=== PATIENT | female | born 1940 | race Caucasian/White ===

== ENCOUNTER 2019-08-19 16:24 | Inpatient (IN) | payer MEDICARE, MEDICAID ==
[~2019-08-19] VITALS: Ht 66 cm; Wt 249.0 kg
--- NOTE | 2019-08-19 20:20 | NUR ---
cayla german admitted to room 227-1, with an admitting diagnosis of chf et weakness, on 08/19/19 from [facility] via , accompanied by .CAYLA DIAZ introduced to surroundings, call light, bed controls, phone, TV, temperature control, lights, meal times, smoking policy, visitor policy, side rail policy, bathrooms and showers. Patient Rights given to patient in the handbook.CAYLA DIAZ verbalizes understanding that [facility] is not responsible for the loss or damage to any personal effects or valuables that are kept in the patients posession during their hospitalization. The following Patient Care Plans were discussed with the : Discharge Planning, ,, and . CAYLA DIAZ verbalizes understanding of Interdisciplinary Patient Education. Patient was informed about the Rapid Response Team and its purpose. Patient received Patient Rights Booklet, which includes Privacy Act Statement and Data Collection Information Summary.
[2019-08-19 20:30] VITALS: BP 110/72
[2019-08-19 21:00] VITALS: BP 110/72
[2019-08-19 21:38] VITALS: BP 110/72
[2019-08-19] MEDS ORDERED: ONDANSETRON 4 MG (ZOFRAN) ORAL DISSOLVE TAB PO PRN (22:00)
[2019-08-19] MEDS ORDERED: CALCIUM CARBONATE 500 MG (TUMS) TAB.CHEW PO PRN (22:00)
[2019-08-19] MEDS ORDERED: LOPERAMIDE 2 MG (IMODIUM) TABLET PO PRN (22:00)
[2019-08-19] MEDS ORDERED: guaiFENesin/CODEINE (ROBITUSSIN AC) 10ML UDC PO PRN (22:00)
[2019-08-19] MEDS ORDERED: HYDROcodone/APAP 5 MG/325 MG (LORTAB) TAB PO PRN (22:00)
[2019-08-19] MEDS ORDERED: ACETAMINOPHEN 500 MG TAB (TYLENOL) PO PRN (22:00)
[2019-08-20 06:00] VITALS: BP 109/72
[2019-08-20] MEDS ORDERED: SPIR25TA5 PO (06:40)
[2019-08-20] MEDS ORDERED: LOSA25TA2 PO (06:54)
[2019-08-20] MEDS ORDERED: NITR0.4T42 SL (06:54)
[2019-08-20] MEDS ORDERED: INSU100V5 SQ (06:54)
[2019-08-20] MEDS ORDERED: CYCL10TA9 PO (06:54)
[2019-08-20] MEDS ORDERED: GLIM4TAB PO (06:54)
[2019-08-20] MEDS ORDERED: ASPI-586 PO (06:54)
[2019-08-20] MEDS ORDERED: INSU100V39 SQ (06:54)
[2019-08-20] MEDS ORDERED: RT-ALBUINH INH ×2 (06:54→07:12)
[2019-08-20] MEDS ORDERED: BUME2TAB7 PO (06:54)
[2019-08-20] MEDS ORDERED: DIPH25CA79 PO (07:12)
[2019-08-20] MEDS ORDERED: LOVA40TA2 PO (07:12)
[2019-08-20] MEDS ORDERED: ALPR0.5T PO (07:12)
[2019-08-20] MEDS ORDERED: POTA10TA PO (07:12)
[2019-08-20] MEDS ORDERED: GUAI1CAP52 PO (07:12)
[2019-08-20] MEDS ORDERED: MAGN200T8 PO (07:12)
[2019-08-20] MEDS ORDERED: NITR-68 PO (08:02)
--- NOTE | 2019-08-20 08:20 | Physical Therapy Evaluation ---
PT Evaluation-General Medical Diagnosis Admission Date Aug 19, 2019 at 20:15 Medical Diagnosis: CHF myopathy Onset Date: Aug 19, 2019 Therapy Diagnosis Therapy Diagnosis: debility/weakness Precautions Precautions/Isolations: Standard Precautions Referral Physician: Chani Reason for Referral: Evaluation/Treatment Medical History Pertinent Medical History: COPD, CVA, DM, Heart Failure, HTN, Renal Insufficiency Additional Medical History MS Current History Transfer from [facility] Reviewed History: Yes Social History Home: Apartment Current Living Status: Alone Entry Into Home: Level Entry Prior/Core FIM Prior Level of Function Therapy Code Descriptions/Definitions Functional [place] Measure: 0=Not Assessed/NA 4=Minimal Assistance 1=Total Assistance 5=Supervision or Setup 2=Maximal Assistance 6=Modified [place] 3=Moderate Assistance 7=Complete [place] Therapy Quality Codes: 6 Independent with activity with or without an assistive device 5 Patient requires set up or clean up by helper. Patient completes activity by themselves 4 Supervision or touching assist (CGA). [place] provide cues , steadying assist 3 The helper provides less than half the effort to complete the activity 2 The helper provides more than half the effort to complete the activity 1 Dependent. The helper does all the effort to complete an activity 7 Patient refused to complete or attempt activity 9 The patient did not perform the activity before the current illness or injury 88 Not attempted due to Medical conditions or safety concerns Functional Abilities and Goals: Independent: Patient completed the activities by him/herself, with or without an assistive device, with no assistance from a helper. Needed Some Help: Patient needed partial assistance from another person to complete activities. Dependent: A helper completed the activities for the patient. Unknown: Not Applicable: Bed Mobility: 6 Transfers (B,C,W/C) (FIM): 6 Gait: 6 Stairs: 1 Indoor Mobility (Ambulation): Independent Stairs: Needed Some Help Prior Devices Use: Manual wheelchair, Walker PT Evaluation-Current Subjective Patient agrees to PT. Alert and Oriented x 3. Pain Numeric Pain Scale: 0-No Pain Location: No Pain Reported Objective Patient Orientation: Normal For Age Problem Solving: Fair Attachments: Oxygen (3L continuous) ROM/Strength ROM Lower Extremities bilateral LE WFL Strenght Lower Extremities 4-/5 grossly bilateral LE all planes Integumentary/Posture Integumentary refer to nursing notes Bowel Incontinence: No Bladder Incontinence: No Posture slightly kyphotic Neuromuscular (Tone, Coordination, Reflexes) grossly intact Sensory Vision: Functional Hearing: Functional Sensation Right Lower Extremit: Impaired Sensation Left Lower Extremity: Impaired Transfers Therapy Code Descriptions/Definitions Functional [place] Measure: 0=Not Assessed/NA 4=Minimal Assistance 1=Total Assistance 5=Supervision or Setup 2=Maximal Assistance 6=Modified [place] 3=Moderate Assistance 7=Complete [place] Therapy Quality Codes: 6 Independent with activity with or without an assistive device 5 Patient requires set up or clean up by helper. Patient completes activity by themselves 4 Supervision or touching assist (CGA). [place] provide cues , steadying assist 3 The helper provides less than half the effort to complete the activity 2 The helper provides more than half the effort to complete the activity 1 Dependent. The helper does all the effort to complete an activity 7 Patient refused to complete or attempt activity 9 The patient did not perform the activity before the current illness or injury 88 Not attempted due to Medical conditions or safety concerns Transfers (B, C, W/C) (FIM): 5 Scootin Rollin Roll Left to Right (QC): 5 Supine to/from Sit: 5 Sit to/from Stand: 5 bed t/f WC(FIM only if WC use): 5 Sit to Lying (QC): 5 Lying to Sitting/Side of Bed(Q: 5 Sit to Stand (QC): 5 Chair/Udo-hi-Eprqo Xfer(QC): 5 Car Transfer (QC): 5 Gait Does the Patient Walk?: Yes Mode of Locomotion: Both Anticipated Mode of Locomotion: Both Gait (FIM): 5 Distance (FIM): 3=150 ft Walk 10 feet (QC): 5 Walk 50 ft with 2 Turns(QC): 5 Walk 150 ft (QC): 5 Walking 10ft/uneven surface-QC: 5 Distance: 150' x 3 Gait Level of Assist: 5 Gait Assistive Device: FWW Comments/Gait Description slow, steady, reciprocal pattern Stairs Stairs (FIM): 2 #of Steps: 2 Level of Assist: 4 1 Step (curb) (QC): 4 4 Steps (QC): 88 Assistive Device: Walker 12 Steps (QC): 9 Balance Sitting Static: Normal Sitting Dynamic: Normal Standing Static: Normal Standing Dynamic: Normal Treatment bilateral LE exercises in sit and stand 12 reps each AP, LAQ, hip flexion, abd/add, marching, hip flexion/extension abd/add in stand (2 sets) patient requires recovery periods due to fatigue/NuStep 15 min WL 5 to improve f unctional strength and mobility, as well as, pulmonary function to return to home safely Assessment/Needs 79 y.o. female, will benefit from skilled PT to address functional strength and mobility to improve current LOF to safely return to home with home health intervention, safely. Patient requires O2 continuous and did prior to this admit. Rehab Potential: Fair PT Tubing Mill Setter Goals Skilled Nursing Goals PT Skilled Nursing Goals Time Frame: Sep 10, 2019 Transfers (B,C,W/C) (FIM): 6 Sit to Lying (QC): 6 Lying-Sitting on Side/Bed(QC): 6 Sit to Stand (QC): 6 Rollin Roll Left to Right (QC): 6 Chair/Qjs-fr-Hnzex Xfer(QC): 6 Car Transfer (QC): 6 Does the Patient Walk: Yes Gait (FIM): 6 Gait distance (FIM): 3=150 ft Distance: 150' Walk 10 feet (QC): 6 Walk 10ft-Uneven Surface(QC): 6 Walk 50ft with 2 Turns (QC): 6 Walk 150 ft (QC): 6 Gait Level of Assist: 6 Gait Assistive Device: FWW Stairs (FIM): 2 # of Steps: 4 1 Step (curb) (QC): 5 4 Steps (QC): 5 12 Steps (QC): 9 Stairs Level Of Assist: 5 Picking up an Object (QC): 5 PT Plan Problem List Problem List: Activity Tolerance, Functional Strength, Safety, Balance, Gait, Transfer, Bed Mobility Treatment/Plan Treatment Plan: Continue Plan of Care Treatment Plan: Bed Mobility, Concurrent Therapy, Education, Functional Activity Mary, Functional Strength, Group Therapy, Gait, Safety, Therapeutic Exercise, Transfers Treatment Duration: Sep 10, 2019 Frequency: At least 5 of 7 days/Wk (IRF) Estimated Hrs Per Day: 1.5 hours per day Patient and/or Family Agrees t: Yes Safety Risks/Education Patient Education: Safety Issues Teaching Recipient: Patient Teaching Methods: Discussion Response to Teaching: Verbalize Understanding Discharge Recommendations Therapy Discharge Recommendati: Post Acute PT (home health) Time/GCodes Time In: 650 Time Out: 820 Total Billed Treatment Time: 90 Total Billed Treatment 1 visit EVMod C 30 min FA x 2 30 min EX x 2 30 min FEDERICO HANKINS PT Aug 20, 2019 08:20
[2019-08-20] MEDS: DOCUSATE SODIUM 100 MG (COLACE) CAP PO PRN (08:51)
[2019-08-20] MEDS: SENNA W/DOCUSATE (SENOKOT S) TABLET PO SCH ×2 (08:51→20:56)
--- NOTE | 2019-08-20 08:56 | NUR ---
Pt only took 1 Senna, states, that she "didn't want her stomach to rumble." Pt reports to OT that her M/S causes her to have back pain.
--- NOTE | 2019-08-20 09:05 | PM&R H&P / Post Admit Assess ---
History of Present Illness HPI/Chief Complaint Chief complaint: Myopathy with debility History of present illness: This is a 79-year-old white female clinic patient of Kalee Harvey in [facility] who has a past medical history of diabetes mellitus and hypertension with valvular heart disease who presents following a 10 day hospital stay at [facility] when she was admitted there for congestive heart failure found to have ejection fraction of 25 percent. She was having shortness of breath and continued to have shortness of breath since that time and further evaluation showed severe aortic stenosis. She was treated for congestive heart failure in preparation for a TVAR in the future but managing her volume status was difficulty so a valvuloplasty was required and significantly improved her status she began breathing better and the pulmonary edema on chest x-ray was much improved. Her creatinine remained normal at 1.0. She did have mild anemia and that was monitor closely along with glucose monitoring. Dr. Luiz Pastor is her primary purchasing manager. She will see cardiovascular surgeon Dr. Buckner and 32 days to arrange for scheduling the TVAR. Currently patient is very upset that she has not received her alprazolam benzodiazepine for her anxiety she does not appear to be terribly anxious but will try to reassure her with a warm blanket while her home medications are being put in the computer in order to restart. Appreciate Dr. Bansal in consultation also. Source: patient, old records Exam Limitations: no limitations Date Seen 08/20/19 Time Seen by a Provider: 09:30 Attending Physician Mariela Tucker DO PCP Referring Physician Date of Admission Aug 19, 2019 at 20:15 Home Medications & Allergies Home Medications Reviewed patient Home Medication Reconciliation performed by pharmacy medication reconciliations natural gas technician and/or nursing. Patients Allergies have been reviewed. Allergies Allergies Coded Allergies Beta-Blockers (Beta-Adrenergic Bloc (Verified Allergy, Unknown, 08/20/19) Thiazides (Verified Allergy, Unknown, 08/20/19) thiazide -type diuretics acebutolol (Verified Allergy, Unknown, 08/20/19) amitriptyline (Verified Allergy, Unknown, 08/20/19) from elavil amoxicillin (Verified Allergy, Unknown, 08/20/19) aspirin (Verified Allergy, Unknown, 08/20/19) from talwin compound atenolol (Verified Allergy, Unknown, 08/20/19) atropine (Verified Allergy, Unknown, 08/20/19) from lomotil azithromycin (Verified Allergy, Unknown, 08/20/19) captopril (Verified Allergy, Unknown, 08/20/19) from capozide cephalexin (Verified Allergy, Unknown, 08/20/19) from keflex clavulanic acid (Verified Allergy, Unknown, 08/20/19) from augmentin codeine (Verified Allergy, Unknown, 08/20/19) diphenoxylate (Verified Allergy, Unknown, 08/20/19) from lomotil doxepin (Verified Allergy, Unknown, 08/20/19) doxycycline (Verified Allergy, Unknown, 08/20/19) enalapril (Verified Allergy, Unknown, 08/20/19) glipizide (Verified Allergy, Unknown, 08/20/19) hydralazine (Verified Allergy, Unknown, 08/20/19) from apresazide hydrochlorothiazide (Verified Allergy, Unknown, 08/20/19) from apresazide levofloxacin (Verified Allergy, Unknown, 08/20/19) from levaquin meperidine (Verified Allergy, Unknown, 08/20/19) metoprolol (Verified Allergy, Unknown, 08/20/19) metronidazole (Verified Allergy, Unknown, 08/20/19) from flagyl naproxen (Verified Allergy, Unknown, 08/20/19) penicillin V (Verified Allergy, Unknown, 08/20/19) from penicillin vk pentazocine (Verified Allergy, Unknown, 08/20/19) from talwin compound perphenazine (Verified Allergy, Unknown, 08/20/19) from etrafon prednisone (Verified Allergy, Unknown, 08/20/19) propranolol (Verified Allergy, Unknown, 08/20/19) sulfadiazine (Verified Allergy, Unknown, 08/20/19) verapamil (Verified Allergy, Unknown, 08/20/19) Past Acibzqk-Wxpzvf-Xqiloq Hx Past Med/Social Hx: Reviewed Nursing Past Med/Soc Hx, Reviewed and Corrections made Patient Social History Marrital Status: single 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) Alcohol Use: Denies Use Recreational Drug Use: No Smoking Status: Former Smoker Former Smoker, Quit: Aug 19, 1982 Type Used: Cigarettes Physical Abuse Screen: No Sexual Abuse: No Recent Foreign Travel: No Contact w/other who traveled: No Recent Hopitalizations: Yes Recent Infectious Disease Expo: No Immunizations Up To Date Date of Pneumonia Vaccine: Aug 19, 2017 Seasonal Allergies Seasonal Allergies: Yes Past Medical History Respiratory: Sleep Apnea Currently Using CPAP: Yes Currently Using BIPAP: No Cardiac: Angina, Chronic Edema/Swelling, Coronary Artery Disease, High Cholesterol, Hypertension, Valvular Heart Disease : No Genitourinary: Renal Failure Gastrointestinal: Abdominal Hernia, Gastroesophageal Reflux, Irritable Bowel Musculoskeletal: Arthritis, Rheumatoid Arthritis, Gout Are Your Blood Sugars Over 250: No HEENT: Cataract Loss of Vision: Denies Hearing Impairment: Denies Psychosocial: Anxiety History of Blood Disorders: No Adverse Reaction to Blood Flowers: No Family History Arthritis 19 MOTHER G8 SISTER Asthma G8 SISTER Osteoporosis 19 MOTHER Severe allergy 19 FATHER 19 MOTHER G8 SISTER Review of Systems Constitutional: see HPI, dizziness, malaise, weakness EENTM: no symptoms reported Respiratory: dyspnea on exertion Cardiovascular: no symptoms reported Gastrointestinal: constipation Genitourinary: no symptoms reported Musculoskeletal: back pain, joint pain Skin: no symptoms reported Psychiatric/Neurological: Anxiety All Other Systems Reviewed Negative Unless Noted: Yes Physical Exam Exam Vital Signs Vital Signs Date Time Temp Pulse Resp B/P (MAP) Pulse Ox O2 Delivery O2 Flow Rate FiO2 08/20/19 09:06 78 22 106/60 (75) 98 Nasal Cannula 2.00 08/20/19 06:00 36.0 Capillary Refill : General Appearance: No Apparent Distress, WD/WN, Chronically ill HEENT: PERRL/EOMI, Normal ENT Inspection, Pharynx Normal, Moist Mucous Membranes Neck: Full Range of Motion, Normal Inspection, Non Tender, Supple Respiratory: Chest Non Tender, Lungs Clear, Normal Breath Sounds, No Accessory Muscle Use, No Respiratory Distress, Decreased Breath Sounds Cardiovascular: No Edema, No Gallop, No JVD, Bradycardia, Systolic Murmur, Irregularly Irregular Gastrointestinal: Normal Bowel Sounds, No Organomegaly, No Pulsatile Mass, Non Tender, Soft Back: Normal Inspection, No CVA Tenderness, No Vertebral Tenderness Extremity: Normal Capillary Refill, Normal Inspection, Normal Range of Motion, Non Tender, No Calf Tenderness, Pedal Edema Neurologic/Psychiatric: Alert, Oriented x3, No Motor/Sensory Deficits, Normal Mood/Affect, information systems audit manager II-XII Norm as Tested, Motor Weakness (generalized in arms and legs upper and lower) Skin: Normal Color, Warm/Dry Lymphatic: No Adenopathy Results Results/Procedures Labs Laboratory Tests 08/20/19 09:44 Patient resulted labs reviewed. Assessment/Plan Assessment and Plan Assess & Plan/Chief Complaint Assessment: Myopathy Debility Congestive heart failure 25 percent ejection fraction line severe aortic stenosis status post valvuloplasty temporarily in preparation for TVAR at [facility] Diabetes mellitus Osteoarthritis Anxiety Sleep apnea Depression Plan: Continue home meds anxiolytics Pain medication Appreciate Dr. Bansal Check labs including BNP (1) Myopathy Status: Acute (2) Congestive heart failure Status: Acute Qualifiers: Heart failure type: systolic Heart failure chronicity: acute on chronic Qualified Codes: I50.23 - Acute on chronic systolic (congestive) heart failure (3) Diabetes mellitus Status: Chronic Qualifiers: Diabetes mellitus type: type 2 Diabetes mellitus termite treater insulin use: without halfway use Diabetes mellitus complication status: with other specified complication Qualified Codes: E11.69 - Type 2 diabetes mellitus with other specified complication (4) Morbid obesity Status: Chronic (5) Anemia Status: Chronic Qualifiers: Anemia type: unspecified type Qualified Codes: D64.9 - Anemia, unspecified (6) Anxiety Status: Chronic (7) Aortic stenosis Status: Chronic Qualifiers: Cardiac valve disease etiology: etiology unspecified Qualified Codes: I35.0 - Nonrheumatic aortic (valve) stenosis (8) CAD (coronary artery disease) Status: Chronic Qualifiers: Coronary Disease-Associated Artery/Lesion type: [place] artery [place] vs. transplanted heart: [place] heart Associated angina: without angina Qualified Codes: I25.10 - Atherosclerotic heart disease of [place] coronary artery without angina pectoris (9) Depression Status: Chronic Qualifiers: Depression Type: unspecified Qualified Codes: F32.9 - Major depressive disorder, single episode, unspecified (10) Sleep apnea Status: Chronic Qualifiers: Sleep apnea type: unspecified type Qualified Codes: G47.30 - Sleep apnea, unspecified (11) Elevated brain natriuretic peptide (BNP) level Status: Chronic Post Admission Physician Asses Date seen by provider: Aug 20, 2019 Time seen by provider: 09:30 Admisison Dx: (1) Myopathy Status: Acute (2) Congestive heart failure Status: Acute (3) CAD (coronary artery disease) Status: Chronic (4) Diabetes mellitus Status: Chronic (5) Morbid obesity Status: Chronic (6) Sleep apnea Status: Chronic (7) Anemia Status: Chronic (8) Elevated brain natriuretic peptide (BNP) level Status: Chronic (9) Aortic stenosis Status: Chronic (10) Anxiety Status: Chronic (11) Depression Status: Chronic The preadmission screen agrees with the post admission assessment that the patient is a good candidate for inpatient rehabilitation. The patient will have a comprehensive program of inpatient rehabilitation with a goal of maximizing level of functional independence prior to discharge home with family. The patient will have PT/OT ninety minutes per day, each discipline, five days a week for gait, strengthening, conditioning, balance, ADLs, any patient/family/caregiver training as necessary. Speech therapy to do cognitive assessment and treat as indicated. Rehabilitation nursing to assist with bowel, bladder, skin, wound care, medication administration, pain management. Audiovisual Aids Technician to assist with discharge planning, community reentry. SCD's for DVT prophylaxis. She appears to be well motivated to participate in three hours of therapy a day. She should be able to tolerate three hours of therapy a day from a medical [facility]. She should benefit from the three hours of therapy a day. She has a reasonable discharge plan, reasonable discharge rehabilitation goals and a supportive family. She has various comorbidities that need to be closely monitored with medications and treatments adjusted on a daily basis as needed. These include: see list Barriers to discharge for this patient who had been independent prior to this are for her to be modified independent to supervision for ADLs and mobility skills prior to discharge home with family, so as to lessen the burden of the caregivers. Risks for this patient include: 1. Fall 2. Fracture 3. DVT 4. Pulmonary embolism 5. Wound infection 6. Skin breakdown 7. Contractures 8. Poorly controlled pain 9. Urinary retention 10. UTI 11. Respiratory infection 12. Aspiration Estimated Length of Stay: 5 days Prognosis: Rehab prognosis appears good for goal of discharge home with family modified independent to supervision for ADLs and mobility skills. MARIELA TUCKER DO Aug 20, 2019 09:05
[2019-08-20 09:06] VITALS: BP 106/60
--- NOTE | 2019-08-20 09:15 | Occupational Therapy Eval ---
OT Evaluation-General/PLF Medical Diagnosis Admission Date Aug 19, 2019 at 20:15 Medical Diagnosis: CHF myopathy Onset Date: Aug 19, 2019 Therapy Diagnosis Therapy Diagnosis: decr self care, decr funct mobility, decr act hector, weakness Precautions Precautions/Isolations: Standard Precautions Safety Interventions: Bed Exit Alarm Referral Physician: Chani Referral Reason: Evaluation/Treatment Medical History Pertinent Medical History: Arthritis, COPD, CVA (39 years ago), DM, GERD, Heart Failure, HTN, Renal Insufficiency, Rheumatoid Arthritis Additional Medical History Multiple sclerosis, anxiety, gout. Uses CPAP. On continuous O2 at 3L/min at home. Pt reported urinary incontinence and chronic constipation Current History Admitted from [facility] after hospitalization Reviewed History: Yes Social History Home: Apartment Current Living Status: Alone Entry Into Home: Level Entry ADL-Prior Level of Function Therapy Code Descriptions/Definitions Functional [place] Measure: 0=Not Assessed/NA 4=Minimal Assistance 1=Total Assistance 5=Supervision or Setup 2=Maximal Assistance 6=Modified [place] 3=Moderate Assistance 7=Complete [place] Therapy Quality Codes: 6 Independent with activity with or without an assistive device 5 Patient requires set up or clean up by helper. Patient completes activity by themselves 4 Supervision or touching assist (CGA). [place] provide cues , steadying assist 3 The helper provides less than half the effort to complete the activity 2 The helper provides more than half the effort to complete the activity 1 Dependent. The helper does all the effort to complete an activity 7 Patient refused to complete or attempt activity 9 The patient did not perform the activity before the current illness or injury 88 Not attempted due to Medical conditions or safety concerns Functional Abilities and Goals: Independent: Patient completed the activities by him/herself, with or without an assistive device, with no assistance from a helper. Needed Some Help: Patient needed partial assistance from another person to complete activities. Dependent: A helper completed the activities for the patient. Unknown: Not Applicable: ADL PLOF Comments Pt reported that she has 32.5 hours of home care assistance, doing such things as help her with her bath, clean, cook, do laundry. She said that, prior to , she could dress herself. She can toilet, complete grooming, feed herself without help. She has a wheelchair at home and also walks a little with FWW. 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 Self Care: Needed Some Help Functional Cognition: Independent DME/Equipment: Shower, Toilet/Riser OT Current Status Subjective Pt seen in room, up in w/c, agreeable to OT. Pain reported 5/10 in her tailbone but she doesn't take pain meds, stating she is allergic to them. Appearance Alert, cooperative, a little anxious Mental Status/Objective Patient Orientation: Person, Place, Time Attachments: Oxygen (3L/min) Current Glasses/Contacts: Yes Hearing Aids: No Dentures/Partials: Yes (upper and lower) Hand Dominance: Right Upper Extremity ROM Grossly WFL bilat Upper Extremity Strength Grossly 4/5 bilat. Slightly weaker on L side. ADL-Treatment ADL-Current Pt walked 150' with FWW with SBA, with PT. ADLs to follow Education OT Patient Education: Purpose of tx/functional activities, Rehab process Teaching Recipient: Patient Teaching Methods: Discussion Response to Teaching: Verbalize Understanding, Reinforcement Needed OT Short Term Goals Short Term Goals Time Frame: Aug 27, 2019 Grooming(FIM): 5 Toileting(FIM): 4 Toilet/Commode Transfer(FIM): 5 Additional Short Term Goals: 1-Demonstrate ADL Tasks, 2-Verbalize Understanding, 3-ImproveStrength/Mary 1=Demonstrate adherence to instructed precautions during ADL tasks. 2=Patient will verbalize/demonstrate understanding of assistive devices/modifications for ADL. 3=Patient will improve strength/tolerance for activity to enable patient to perform ADL's. OT Facilities Maintenance Worker Goals [facility] Goals Time Frame: Sep 03, 2019 Eating (FIM): 6 Eating (QC): 6 Groomin Oral Hygiene (QC): 6 Bathing(FIM): 5 Shower/Bathe Self (QC): 5 Upper Body Dressing(FIM): 6 Upper Body Dressing (QC): 6 Lower Body Dressing(FIM): 6 Lower Body Dressing (QC): 6 On/Off Footwear (QC): 6 Toileting(FIM): 6 Toileting Hygiene (QC): 6 Toilet/Commode Transfer(FIM): 6 Toilet/Commode Transfer (QC): 6 Shower Transfer(FIM): 6 Additional Goals: 1-Demonstrate ADL Tasks, 2-Verbalize Understanding, 3- ImproveStrength/Mary 1=Demonstrate adherence to instructed precautions during ADL tasks. 2=Patient will verbalize/demonstrate understanding of assistive devices/modifications for ADL. 3=Patient will improve strength/tolerance for activity to enable patient to perform ADL's. OT Education/Plan Problem List/Assessment Assessment: Decreased Activ Tolerance, Decreased UE Strength, Dependent Transfers, Impaired Bed Mobility (per pt report), Impaired Self-Care Skills Pt would benefit from skilled OT to increase her independence in basic self care to allow her to safely return home to live alone after hospitalization. Discharge Recommendations Plan/Recommendations: Continue POC Treatment Plan/Plan of Care Treatment,Training & Education: Yes Patient would benefit from OT for education, treatment and training to promote independence in ADL's, mobility, safety and/or upper extremity function for ADL's. Plan of Care: ADL Retraining, Functional Mobility, Group Exercise/Act as Ind (education, exercise, socialization, funct mobility, activity tolerance), UE Funct Exercise/Act, UE Neuromus Re-Ed/Coord, W/C Management Training, OTHER (energy conservation education) Treatment Duration: Sep 03, 2019 Frequency: At least 5 of 7 days/Wk (IRF) Agreement: Yes Rehab Potential: Good Time/GCodes Start Time: 08:30 Stop Time: 09:05 Total Time Billed (hr/min): 35 Billed Treatment Time visit, 35 minutes evaluation moderate intensity WILMER TREADWELL OT Aug 20, 2019 09:15
[2019-08-20 10:07] LABS: BASOPHILS # (AUTO) 0.1 10^3/uL (0.0-0.1); BASOPHILS % (AUTO) 1 % (0-10); EOSINOPHILS # (AUTO) 0.4 10^3/uL (0.0-0.3); EOSINOPHILS % (AUTO) 4 % (0-10); HEMATOCRIT 40 % (35-52); HEMOGLOBIN 12.6 G/DL (11.5-16.0); LYMPHOCYTES # (AUTO) 1.3 X 10^3 (1.0-4.0); LYMPHOCYTES % (AUTO) 13 % (12-44); MEAN CORPUSCULAR HEMOGLOBIN 26 PG (25-34); MEAN CORPUSCULAR HGB CONC 32 G/DL (32-36); MEAN CORPUSCULAR VOLUME 83 FL (80-99); MEAN PLATELET VOLUME 10.2 FL (7.4-10.4); MONOCYTES # (AUTO) 1.3 X 10^3 (0.0-1.0); MONOCYTES % (AUTO) 13 % (0-12); NEUTROPHILS % (AUTO) 69 % (42-75); PLATELET COUNT 374 10^3/uL (130-400); RED CELL DISTRIBUTION WIDTH 14.7 % (10.0-14.5)
--- NOTE | 2019-08-20 10:08 | Consultation-Cardiology ---
HPI-Cardiology Cardiology Consultation Date of Consultation 08/20/19 Date of Admission Time Seen by Provider: 10:03 Indication: CHF HPI 79 years old lady with history of CHF, Aortic stenosis, and balloon valvulopasty done last week in [facility] by Dr. Pastor. She was referred for continuing medical therapy. It was reported that she has history of severe congestive heart failure secondary to valvular heart disease, coronary artery disease, diabetes and hyperlipidemia. Was having shortness of breath and generalized weakness, on my evaluation she was fairly anxious, asking for food and her medication. Did not have any active pain. Home Medications & Allergies Allergies: Coded Allergies: Beta-Blockers (Beta-Adrenergic Bloc (Verified Allergy, Unknown, 08/20/19) Thiazides (Verified Allergy, Unknown, 08/20/19) thiazide -type diuretics acebutolol (Verified Allergy, Unknown, 08/20/19) amitriptyline (Verified Allergy, Unknown, 08/20/19) from elavil amoxicillin (Verified Allergy, Unknown, 08/20/19) aspirin (Verified Allergy, Unknown, 08/20/19) from talwin compound atenolol (Verified Allergy, Unknown, 08/20/19) atropine (Verified Allergy, Unknown, 08/20/19) from lomotil azithromycin (Verified Allergy, Unknown, 08/20/19) captopril (Verified Allergy, Unknown, 08/20/19) from capozide cephalexin (Verified Allergy, Unknown, 08/20/19) from keflex clavulanic acid (Verified Allergy, Unknown, 08/20/19) from augmentin codeine (Verified Allergy, Unknown, 08/20/19) diphenoxylate (Verified Allergy, Unknown, 08/20/19) from lomotil doxepin (Verified Allergy, Unknown, 08/20/19) doxycycline (Verified Allergy, Unknown, 08/20/19) enalapril (Verified Allergy, Unknown, 08/20/19) glipizide (Verified Allergy, Unknown, 08/20/19) hydralazine (Verified Allergy, Unknown, 08/20/19) from apresazide hydrochlorothiazide (Verified Allergy, Unknown, 08/20/19) from apresazide levofloxacin (Verified Allergy, Unknown, 08/20/19) from levaquin meperidine (Verified Allergy, Unknown, 08/20/19) metoprolol (Verified Allergy, Unknown, 08/20/19) metronidazole (Verified Allergy, Unknown, 08/20/19) from flagyl naproxen (Verified Allergy, Unknown, 08/20/19) penicillin V (Verified Allergy, Unknown, 08/20/19) from penicillin vk pentazocine (Verified Allergy, Unknown, 08/20/19) from talwin compound perphenazine (Verified Allergy, Unknown, 08/20/19) from etrafon prednisone (Verified Allergy, Unknown, 08/20/19) propranolol (Verified Allergy, Unknown, 08/20/19) sulfadiazine (Verified Allergy, Unknown, 08/20/19) verapamil (Verified Allergy, Unknown, 08/20/19) Home Medication List Reviewed: Yes RLT-[id number] Hx Patient Social History Employed/Student: retired Alcohol Use: Denies Use Recreational Drug Use: No Smoking Status: Former Smoker Type Used: Cigarettes Recent Foreign Travel: No Recent Infectious Disease Expo: No Recent Hopitalizations: Yes Physical Abuse Screen: No Sexual Abuse: No Immunizations Up To Date Date of Pneumonia Vaccine: Aug 19, 2017 Past Medical History Discussed below Family Medical History Family History: Arthritis 19 MOTHER G8 SISTER Asthma G8 SISTER Osteoporosis 19 MOTHER Severe allergy 19 FATHER 19 MOTHER G8 SISTER Review of Systems-General Review of Systems Constitutional: see HPI, malaise EENTM: see HPI, no symptoms reported Respiratory: see HPI; No cough; dyspnea on exertion; No hemoptysis, No orthopnea, No phlegm; short of breath; No stridor, No wheezing, No other Cardiovascular: see HPI, chest pain, edema; No Hx of Intervention, No palpitations, No syncope, No vascular heart diseas, No other Gastrointestinal: no symptoms reported, see HPI Genitourinary: no symptoms reported, see HPI Musculoskeletal: no symptoms reported, see HPI Skin: no symptoms reported, see HPI Psychiatric/Neurological: No Symptoms Reported, See HPI Reviewed Test Results Reviewed Test Results Lab Laboratory Tests Test 08/19/19 22:58 08/20/19 06:10 08/20/19 09:44 Range/Units Glucometer 140 H 160 H 70-110 MG/DL Physical Exam Physical Exam Vital Signs Vital Signs - First Documented 08/19/19 20:30 Temp 36.0 Pulse 95 Resp 16 B/P (MAP) 110/72 (85) Pulse Ox 98 O2 Delivery Nasal Cannula O2 Flow Rate 3.00 Capillary Refill : Height, Weight, BMI Height: '" Weight: lbs. oz. kg; 259.41 BMI Method: General Appearance: No Apparent Distress, WD/WN Eyes: Bilateral Eye Normal Inspection, Bilateral Eye PERRL, Bilateral Eye EOMI HEENT: PERRL/EOMI, TMs Normal, Normal ENT Inspection, Pharynx Normal, Moist Mu cous Membranes Neck: Full Range of Motion, Normal Inspection, Non Tender, Supple, Carotid Bruit Respiratory: Chest Non Tender, Normal Breath Sounds, No Accessory Muscle Use, No Respiratory Distress Cardiovascular: Regular Rate, Rhythm, No Edema, No JVD, Normal Peripheral Pulses, Systolic Murmur, Gallop/S3 Gastrointestinal: Normal Bowel Sounds, No Organomegaly, No Pulsatile Mass, Non Tender, Soft Back: Normal Inspection, No CVA Tenderness, No Vertebral Tenderness Extremity: Normal Capillary Refill, Normal Inspection, Normal Range of Motion, Non Tender, No Calf Tenderness, No Pedal Edema Neurologic/Psychiatric: Alert, Oriented x3, No Motor/Sensory Deficits, Normal Mood/Affect Skin: Normal Color, Warm/Dry Lymphatic: No Adenopathy A/P-Cardiology Admission Diagnosis Critical aortic valve stenosis Congestive heart failure, acute on chronic left ventricular systolic dysfunction, nonischemic cardiomyopathy Hypertension Hyperlipidemia Assessment/Plan Critical aortic valve stenosis status post balloon valvuloplasty, has workup for her, has been following with Dr. Del Toro, continue to monitor Congestive heart failure, severe cardiomyopathy nonischemic, acute on chronic left ventricular systolic dysfunction, secondary to valvular heart disease. Reported ejection fraction 25 percent Hypertension, currently borderline hypotensive secondary to medication, monitor blood pressure and restart home medications Hyperlipidemia, monitor lipids History of intolerance to TUSHAR inhibitor with cough. Diabetes mellitus Anxiety. Debility Clinical Quality Measures DVT/VTE Risk/Contraindication: Risk Factor Score Per Nursin RFS Level Per Nursing on Admit: 4+=Very High CAYETANO AGUIAR MD Aug 20, 2019 10:08
[2019-08-20] MEDS ORDERED: MAGNESIUM OXIDE 250 MG PO SCH (10:15)
[2019-08-20] MEDS ORDERED: NON-FORMULARY MEDICATION 1 EA EA (Aspirin (Aspir 81) 81 MG) PO SCH (10:15)
[2019-08-20 10:24] LABS: ALBUMIN 3.9 GM/DL (3.2-4.5); BILIRUBIN,TOTAL 0.8 MG/DL (0.1-1.0); CALCIUM 10.1 MG/DL (8.5-10.1); CREATININE SERUM 0.96 MG/DL (0.60-1.30); POTASSIUM 4.2 MMOL/L (3.6-5.0); TOTAL PROTEIN 7.4 GM/DL (6.4-8.2)
[2019-08-20] MEDS: SPIRONOLACTONE 25 MG (ALDACTONE) TAB PO SCH (10:52)
[2019-08-20] MEDS: MAGNESIUM OXIDE (MAG-OX)400 MG TAB PO SCH (10:53)
[2019-08-20] MEDS: SIMvastatin 20 MG (ZOCOR) TAB PO SCH (10:53)
[2019-08-20] MEDS: LOSARTAN 25 MG (COZAAR) TAB PO SCH (10:53)
[2019-08-20] MEDS: ALPRAZolam 0.5 MG (XANAX) TAB PO PRN ×2 (11:11→18:31)
--- NOTE | 2019-08-20 11:11 | NUR ---
Pt states that she takes, "her Xanax 4 times a day at home, & wants to continue this here." Pt reports that she receives 32 hrs of SKIL weekly.
--- NOTE | 2019-08-20 11:21 | Occupational Ther Daily Note ---
OT Current Status-Daily Note Subjective Pt alert, sitting in w/c. Pt stated that she was ready for her medications, reported to nrsg. Pt agrees to therapy. No c/o pain. Mental Status/Objective Patient Orientation: Person, Place, Time, Situation Therapy Code Descriptions/Definitions Functional [place] Measure: 0=Not Assessed/NA 4=Minimal Assistance 1=Total Assistance 5=Supervision or Setup 2=Maximal Assistance 6=Modified [place] 3=Moderate Assistance 7=Complete [place] Attachments: Oxygen ADL-Treatment Pt ambulated to bathroom using FWW, close SBA. SBA using FWW and grabbars to transfer onto toilet, required assist for sit to stand from toilet. Pt completes own toileting and clothing manipulation with CGA. Pt transferred into shower using grabbars and FWW, CGA. Set up required for shower, CGA in standing while pt cleansed [place] area and buttocks. Pt declined to wash feet, just let water run over them then allowed to air dry. After set up, pt donned dressing gown by self. Assist to doff lower body clothing over feet then CGA in standing to hike over hips. Pt able to open containers/packages by self then use regular utensils to eat. Pt takes increased time to complete ADLs due to new environment that has changed pt's routine. Pt able to brush hair and completed other grooming in shower, except oral care. After therapy, pt sitting in w/c with call light/phone in reach. Nrsg in room. Therapy Code Descriptions/Definitions Functional [place] Measure: 0=Not Assessed/NA 4=Minimal Assistance 1=Total Assistance 5=Supervision or Setup 2=Maximal Assistance 6=Modified [place] 3=Moderate Assistance 7=Complete [place] Therapy Quality Codes: 6 Independent with activity with or without an assistive device 5 Patient requires set up or clean up by helper. Patient completes activity by themselves 4 Supervision or touching assist (CGA). [place] provide cues , steadying assist 3 The helper provides less than half the effort to complete the activity 2 The helper provides more than half the effort to complete the activity 1 Dependent. The helper does all the effort to complete an activity 7 Patient refused to complete or attempt activity 9 The patient did not perform the activity before the current illness or injury 88 Not attempted due to Medical conditions or safety concerns Eating (FIM): 6 Eating (QC): 6 Bathing (FIM): 4 Bathing Location: L Arm, R Arm, L Upper Leg, R Upper Leg, Chest, Abdomen, Buttocks, Perineal Area Shower/Bathe Self (QC): 3 Upper Body (FIM): 5 Upper Body Dressing (QC): 5 Lower Body Dressing (FIM): 2 Lower Body Dressing (QC): 2 On/Off Footwear (QC): 2 Toileting (FIM): 5 Toileting Hygiene (QC): 4 Transfers (B, C, W/C) (FIM): 5 Toilet/Commode Transfer (FIM): 5 Toilet Transfer (QC): 4 Shower Transfer(FIM): 4 OT Short Term Goals Short Term Goals Time Frame: Aug 27, 2019 Grooming(FIM): 5 Toileting(FIM): 4 Toilet/Commode Transfer(FIM): 5 Additional Short Term Goals: 1-Demonstrate ADL Tasks, 2-Verbalize Understanding, 3-ImproveStrength/Mary 1=Demonstrate adherence to instructed precautions during ADL tasks. 2=Patient will verbalize/demonstrate understanding of assistive devices/modifications for ADL. 3=Patient will improve strength/tolerance for activity to enable patient to p erform ADL's. OT Flight Control Specialist Goals Flight Control Specialist Goals Time Frame: Sep 03, 2019 Eating (FIM): 6 Eating (QC): 6 Groomin Oral Hygiene (QC): 6 Bathing(FIM): 5 Shower/Bathe Self (QC): 5 Upper Body Dressing(FIM): 6 Upper Body Dressing (QC): 6 Lower Body Dressing(FIM): 6 Lower Body Dressing (QC): 6 On/Off Footwear (QC): 6 Toileting(FIM): 6 Toileting Hygiene (QC): 6 Toilet/Commode Transfer(FIM): 6 Toilet/Commode Transfer (QC): 6 Shower Transfer(FIM): 6 Additional Goals: 1-Demonstrate ADL Tasks, 2-Verbalize Understanding, 3- ImproveStrength/Mary 1=Demonstrate adherence to instructed precautions during ADL tasks. 2=Patient will verbalize/demonstrate understanding of assistive devices/modifications for ADL. 3=Patient will improve strength/tolerance for activity to enable patient to perform ADL's. OT Education/Plan Problem List/Assessment Assessment: Decreased Activ Tolerance, Decreased Safety Aware, Impaired Self- Care Skills Pt would benefit from skilled OT to increase her independence in basic self care to allow her to safely return home to live alone after hospitalization. Discharge Recommendations Plan/Recommendations: Continue POC Treatment Plan/Plan of Care Patient would benefit from OT for education, treatment and training to promote independence in ADL's, mobility, safety and/or upper extremity function for ADL's. Plan of Care: ADL Retraining, Functional Mobility, Group Exercise/Act as Ind (education, exercise, socialization, funct mobility, activity tolerance), UE Funct Exercise/Act, UE Neuromus Re-Ed/Coord, W/C Management Training, OTHER (energy conservation education) Treatment Duration: Sep 03, 2019 Frequency: At least 5 of 7 days/Wk (IRF) Agreement: Yes Rehab Potential: Good Time/GCodes Start Time: 09:40 Stop Time: 11:05 Total Time Billed (hr/min): 85 Billed Treatment Time 1 visit-ADL 6 (85 min) VENU HARRINGTON Aug 20, 2019 11:21
[2019-08-20] MEDS: BUMETANIDE 1 MG (BUMEX) TAB PO SCH ×2 (11:41→17:45)
[2019-08-20] MEDS ORDERED: RT-ALBUTEROL SULF 2.5 MG/3 ML PRE-MIX VIAL INH PRN (12:30)
[2019-08-20] MEDS: guaiFENesin/DM (ROBITUSSIN DM) 10 ML UDC PO SCH ×2 (12:44→20:56)
[2019-08-20] MEDS: diphenhydrAMINE 25 MG TAB (BENADRYL) PO SCH ×2 (12:44→20:56)
[2019-08-20] MEDS: CYCLOBENZAPRINE 10 MG (FLEXERIL) TAB PO PRN ×2 (12:44→21:02)
[2019-08-20] MEDS ORDERED: inSUlin ASPART (NovoLOG) 1 UNIT/0.01 ML (CHARGE PER UNIT) ONE (12:51)
[2019-08-20] MEDS ORDERED: inSUlin ASPART (NovoLOG) 1 UNIT/0.01 ML (CHARGE PER UNIT) SC ONE (13:00)
[2019-08-20] MEDS: BISACODYL 10 MG SUPP (DULCOLAX) PR PRN (14:31)
[2019-08-20] MEDS ORDERED: FLEET ENEMA ADULT 1 EA BTL PR PRN (15:30)
[2019-08-20] MEDS ORDERED: NON-FORMULARY MEDICATION 1 EA EA (Bumetanide 2 MG) PO SCH (17:00)
[2019-08-20 17:46] VITALS: BP 111/54
[2019-08-20 18:31] VITALS: BP 112/70
[2019-08-20] MEDS: inSUlin ASPART (NovoLOG) 1 UNIT/0.01 ML (CHARGE PER UNIT) SC SCH (18:31)
[2019-08-20] MEDS: MELATONIN 3 MG TABLET PO PRN (20:57)
[2019-08-20] MEDS ORDERED: NITROFURANTOIN 50 MG (MACRODANTIN) CAP PO SCH (21:00)
[2019-08-20] MEDS ORDERED: GLIMEPIRIDE 4 MG (AMARYL) TAB PO SCH (21:00)
[2019-08-21 06:00] VITALS: BP 94/56
[2019-08-21] MEDS: BUMETANIDE 1 MG (BUMEX) TAB PO SCH ×2 (06:54→17:07)
[2019-08-21 06:58] VITALS: BP 130/70
[2019-08-21] MEDS: inSUlin ASPART (NovoLOG) 1 UNIT/0.01 ML (CHARGE PER UNIT) SC SCH ×3 (07:30→17:08)
[2019-08-21] MEDS: SPIRONOLACTONE 25 MG (ALDACTONE) TAB PO SCH (08:32)
[2019-08-21] MEDS: LOSARTAN 25 MG (COZAAR) TAB PO SCH (08:32)
[2019-08-21] MEDS: KCL 10 MEQ TAB (MICRO K) PO SCH (08:32)
[2019-08-21] MEDS: CYCLOBENZAPRINE 10 MG (FLEXERIL) TAB PO PRN ×2 (08:32→20:50)
[2019-08-21] MEDS: guaiFENesin/DM (ROBITUSSIN DM) 10 ML UDC PO SCH ×3 (08:33→20:54)
[2019-08-21] MEDS: ALPRAZolam 0.5 MG (XANAX) TAB PO PRN ×3 (08:33→18:51)
[2019-08-21] MEDS: diphenhydrAMINE 25 MG TAB (BENADRYL) PO SCH ×2 (08:34→12:10)
[2019-08-21] MEDS: SENNA W/DOCUSATE (SENOKOT S) TABLET PO SCH ×3 (08:35→20:50)
[2019-08-21] MEDS: RT-ALBUTEROL SULF 2.5 MG/3 ML PRE-MIX VIAL INH PRN (08:47)
[2019-08-21] MEDS ORDERED: NON-FORMULARY MEDICATION 1 EA EA (Aspirin (Aspir 81) 81 MG) PO SCH (09:00)
[2019-08-21] MEDS ORDERED: SPIRONOLACTONE 25 MG (ALDACTONE) TAB PO SCH (09:00)
[2019-08-21] MEDS ORDERED: LOSARTAN POTASSIUM 25 MG PO SCH (09:00)
[2019-08-21 09:13] VITALS: BP 106/71
[2019-08-21] MEDS: ASPIRIN 81 MG CHEW (CHILDREN'S ASA) PO SCH (10:01)
[2019-08-21] MEDS ORDERED: DICLOFENAC 1% GEL 100 GM (VOLTAREN) TUBE TOP PRN (10:15)
--- NOTE | 2019-08-21 10:35 | NUR ---
K-pad to room per patient's request.
--- NOTE | 2019-08-21 10:38 | Cardiology Progress Note ---
Subjective Date Seen by Provider: Aug 21, 2019 Time Seen by Provider: 10:37 Subjective/Events-last exam patient is laying down in bed, feeling better, still having fatigue and loss of energy, has been borderline hypotensive Review of Systems General: No Chills, No Night Sweats; Fatigue; No Malaise, No Appetite, No Other HEENT: No Head Aches, No Visual Changes, No Eye Pain, No Ear Pain, No Dysphasia, No Sinus Congestion, No Post Nasal Drip, No Sore Throat, No Other Pulmonary: Dyspnea; No Cough, No Pleuritic Chest Pain, No Other Cardiovascular: No: Chest Pain, Palpitations, Orthopnea, Paroxysmal Noc. Dyspnea, Edema, Lt Headedness, Other Objective-Cardiology Exam Last Set of Vital Signs Vital Signs 08/21/19 08/21/19 08/21/19 08/21/19 06:00 08:47 09:13 10:18 Temp 36.6 Pulse 90 Resp 18 B/P (MAP) 106/71 (83) Pulse Ox 98 O2 Delivery Nasal Cannula O2 Flow Rate 2.00 Capillary Refill : I&O Intake and Output 08/21/19 00:00 Intake Total 1050 ml Balance 1050 ml Intake Oral 1050 ml # Voids 14 # Bowel Movements 2 General: Alert, Oriented X3, Cooperative HEENT: Atraumatic, PERRLA Neck: Supple, No JVD, No Thyromegaly Lungs: Normal Air Movement Heart: Regular Rate, Normal S1, Normal S2, No Murmurs, Other (start murmur at the left sternal border) Abdomen: Normal Bowel Sounds, Soft, No Tenderness, No Hepatosplenomegaly, No Masses Extremities: No Clubbing, No Cyanosis, No Edema, Normal Pulses, No Tende rness/Swelling Skin: No Rashes, No Breakdown, No Significant Lesion Neuro: Normal Gait, Normal Speech, Strength at 5/5 X4 Ext, Normal Tone, Sensation Intact Psych/Mental Status: Mental Status NL, Mood NL Results Lab Laboratory Tests Test 08/20/19 12:46 08/20/19 17:11 08/20/19 20:54 08/21/19 05:52 Range/Units Glucometer 313 H 164 H 246 H 122 H 70-110 MG/DL A/P-Cardiology Admission Diagnosis Critical aortic valve stenosis Congestive heart failure, acute on chronic left ventricular systolic dysfunction, nonischemic cardiomyopathy Hypertension Hyperlipidemia Assessment/Plan Critical aortic valve stenosis status post balloon valvuloplasty, has workup for her, has been following with Dr. Del Toro, continue to monitor Congestive heart failure, severe cardiomyopathy nonischemic, acute on chronic left ventricular systolic dysfunction, secondary to valvular heart disease. Reported ejection fraction 25 percent Hypotension secondary to medication, continue on current medication with parameter to hold blood pressure medication if systolic below 90. Hyperlipidemia, monitor lipids History of intolerance to TUSHAR inhibitor with cough. Diabetes mellitus Anxiety. Debility Clinical Quality Measures DVT/VTE Risk/Contraindication: Risk Factor Score Per Nursin RFS Level Per Nursing on Admit: 4+=Very High CAYETANO AGUIAR MD Aug 21, 2019 10:38
--- NOTE | 2019-08-21 10:40 | NUR ---
Dr. Wilde and Dr. Bansal here to see patient.
--- NOTE | 2019-08-21 10:41 | NUR ---
Patient refusing Benadryl, Amaryl, and Macrodantin D/T "allergies". Asked if patient could call daughter and have her bring in patient's home supply. Daughter states that she is not coming to the hospital today, but will bring them in "sometime". Dr. Wilde informed of above. Patient also requesting to change Xanax to scheduled instead of PRN. Dr. Wilde informed and states to leave it as PRN.
--- NOTE | 2019-08-21 10:46 | NUR ---
New BAND-AID applied to right groin Heart Cath site. No redness or drainage noted.
--- NOTE | 2019-08-21 11:36 | PM&R Progress Note ---
Subjective HPI/CC On Admission Date Seen by Provider: Aug 21, 2019 Time Seen by Provider: 09:30 Chief complaint: Myopathy with debility History of present illness: This is a 79-year-old white female clinic patient of Kalee Harvey in [facility] who has a past medical history of diabetes mellitus and hypertension with valvular heart disease who presents following a 10 day hospital stay at [facility] when she was admitted there for congestive heart failure found to have ejection fraction of 25 percent. She was having shortness of breath and continued to have shortness of breath since that time and further evaluation showed severe aortic stenosis. She was treated for congestive heart failure in preparation for a TVAR in the future but managing her volume status was difficulty so a valvuloplasty was required and significantly improved her status she began breathing better and the pulmonary edema on chest x-ray was much improved. Her creatinine remained normal at 1.0. She did have mild anemia and that was monitor closely along with glucose monitoring. Dr. Luiz Pastor is her primary wire coating operator metal. She will see cardiovascular surgeon Dr. Buckner and 32 days to arrange for scheduling the TVAR. Currently patient is very upset that she has not received her alprazolam benzodiazepine for her anxiety she does not appear to be terribly anxious but will try to reassure her with a warm blanket while her home medications are being put in the computer in order to restart. Appreciate Dr. Bansal in consultation also. Subjective/Events-last exam I did not mention the fact that she does have multiple sclerosis since her cardiomyopathy had taken precedence Change to her third bed now as she had at [facility] Refusing a lot of medications and she wants her daughter to bring her own home supply because she is allergic to approximately 55 medications Glucose was 120 this morning Ordered a K pad to help with her back pain Had a bowel movement yesterday after suppository and fleets enema Patient very complex having multiple needs requiring a great deal of nursing staff Patient reports that she lives at home alone which may need to be changed due to her multiple needs Check meds and labs Reviewed therapy notes Conferred with carbon coater machine operator of Systems General: Fatigue, Malaise Pulmonary: Dyspnea Musculoskeletal: back pain, leg pain Objective Exam Vital Signs Vital Signs Date Time Temp Pulse Resp B/P (MAP) Pulse Ox O2 Delivery O2 Flow Rate FiO2 08/21/19 19:02 99 18 145/69 (94) 100 Nasal Cannula 2.00 08/21/19 17:36 37.0 Capillary Refill : General Appearance: No Apparent Distress, WD/WN, Chronically ill, Obese HEENT: PERRL/EOMI, Normal ENT Inspection, Pharynx Normal, Moist Mucous Membranes Neck: Full Range of Motion, Normal Inspection, Non Tender, Supple Respiratory: Chest Non Tender, Lungs Clear, Normal Breath Sounds, No Accessory Muscle Use, No Respiratory Distress, Decreased Breath Sounds Cardiovascular: No Edema, No Gallop, No JVD, Bradycardia, Systolic Murmur, Irregularly Irregular Gastrointestinal: Normal Bowel Sounds, No Organomegaly, No Pulsatile Mass, Non Tender, Soft Back: Normal Inspection, No CVA Tenderness, No Vertebral Tenderness Extremity: Normal Capillary Refill, Normal Inspection, Normal Range of Motion, Non Tender, No Calf Tenderness, Pedal Edema Neurologic/Psychiatric: Alert, Oriented x3, No Motor/Sensory Deficits, Normal Mood/Affect, louver mortiser operator II-XII Norm as Tested, Motor Weakness (generalized in arms and legs upper and lower) Skin: Normal Color, Warm/Dry Lymphatic: No Adenopathy Results/Procedures Lab Patient resulted labs reviewed. FIM Transfers Therapy Code Descriptions/Definitions Functional [place] Measure: 0=Not Assessed/NA 4=Minimal Assistance 1=Total Assistance 5=Supervision or Setup 2=Maximal Assistance 6=Modified O[place] 3=Moderate Assistance 7=Complete [place]rey Therapy Quality Codes: 6 Independent with activity with or without an assistive device 5 Patient requires set up or clean up by helper. Patient completes activity by themselves 4 Supervision or touching assist (CGA). [place] provide cues , steadying assist 3 The helper provides less than half the effort to complete the activity 2 The helper provides more than half the effort to complete the activity 1 Dependent. The helper does all the effort to complete an activity 7 Patient refused to complete or attempt activity 9 The patient did not perform the activity before the current illness or injury 88 Not attempted due to Medical conditions or safety concerns Transfers (B, C, W/C) (FIM): 5 Scootin Rollin Roll Left to Right (QC): 5 Supine to/from Sit: 5 Sit to/from Stand: 5 Sit to Lying (QC): 5 Sit to Stand (QC): 5 Chair/[id number] Xfer(QC): 5 Bed to/from Chair: 5 Car Transfer (QC): 5 Gait Training Does the Patient Walk?: Yes Gait (FIM): 5 Distance (FIM): 3=150 ft Walk 10 feet (QC): 5 Walk 50 ft with 2 Turns(QC): 5 Walk 150 ft (QC): 5 Walking 10ft/uneven surface-QC: 5 Gait Level of Assist: 5 Gait Assistive Device: FWW Stair Training Stairs (FIM): 2 #of Steps: 2 1 Step (curb) (QC): 4 4 Steps (QC): 88 12 Steps (QC): 9 Level of Assist: 4 ADL-Treatment Feedin Eating (QC): 6 Bathin Bathing Location: L Arm, R Arm, L Upper Leg, R Upper Leg, Chest, Abdomen, Buttocks, Perineal Area Shower/Bathe Self (QC): 3 Upper Extremity Dressin Upper Body Dressing (QC): 5 Lower Extremity Dressin Lower Body Dressing (QC): 2 On/Off Footwear (QC): 2 Toiletin Toileting Hygiene (QC): 4 Toilet/Commode Transfer: 5 Toilet Transfer (QC): 4 Shower: 4 Assessment/Plan Assessment and Plan Assess & Plan/Chief Complaint Assessment: Myopathy Debility Congestive heart failure 25 percent ejection fraction line severe aortic stenosis status post valvuloplasty temporarily in preparation for TVAR at [facility] Diabetes mellitus Osteoarthritis Anxiety Sleep apnea Depression Plan: Continue home meds anxiolytics Pain medication Appreciate Dr. Bansal Check labs including BNP (1) Myopathy Status: Acute (2) Congestive heart failure Status: Acute Qualifiers: Heart failure type: systolic Heart failure chronicity: acute on chronic Qualified Codes: I50.23 - Acute on chronic systolic (congestive) heart failure (3) CAD (coronary artery disease) Status: Chronic Qualifiers: Coronary Disease-Associated Artery/Lesion type: [place] artery [place] vs. transplanted heart: [place] heart Associated angina: without angina Qualified Codes: I25.10 - Atherosclerotic heart disease of [place] coronary artery without angina pectoris (4) Diabetes mellitus Status: Chronic Qualifiers: Diabetes mellitus type: type 2 Diabetes mellitus shelter insulin use: without ad terminal makeup operator use Diabetes mellitus complication status: with other specified complication Qualified Codes: E11.69 - Type 2 diabetes mellitus with other specified complication (5) Morbid obesity Status: Chronic (6) Sleep apnea Status: Chronic Qualifiers: Sleep apnea type: unspecified type Qualified Codes: G47.30 - Sleep apnea, unspecified (7) Anemia Status: Chronic Qualifiers: Anemia type: unspecified type Qualified Codes: D64.9 - Anemia, unspecified (8) Elevated brain natriuretic peptide (BNP) level Status: Chronic (9) Aortic stenosis Status: Chronic Qualifiers: Cardiac valve disease etiology: etiology unspecified Qualified Codes: I35.0 - Nonrheumatic aortic (valve) stenosis (10) Anxiety Status: Chronic (11) Depression Status: Chronic Qualifiers: Depression Type: unspecified Qualified Codes: F32.9 - Major depressive disorder, single episode, unspecified (12) Multiple sclerosis Status: Chronic MALLORY TUCKER DO Aug 21, 2019 11:36
--- NOTE | 2019-08-21 11:37 | Individualized Plan of Care ---
Individualized Plan of Care Rehab Nursing IPOC Order Admission Date Aug 19, 2019 at 20:15 Current Orders Orders Admission Order(Inpt,Obs,Sdc) (08/19/19 16:43) Vital Signs: Per Unit Policy ( ,16,00 (08/19/19 16:43) Certified Recreational Therapist-Inpt Rehab Con (08/19/19 16:43) Rehab Nursing Orders-Ipoc (08/19/19 16:43) Physical Therapy Rehab Orders (08/19/19 16:43) Occupational Therapy Rehab Ord (08/19/19 16:43) Speech Therapy Rehab Orders (08/19/19 16:43) General/Regular (08/20/19 Breakfast) Intake & Output 06,14,22 (08/19/19 16:43) Precautions (Aru) (08/19/19 16:43) Weekly Weight WEEK (08/19/19 16:43) Rehab-Intensity Of Therapy (08/19/19 16:43) Initiate Admission Nursing Pro .admission (08/19/19 16:43) Initiate Admission Nursing Pro .admission (08/19/19 16:43) Acetaminophen Tablet (Tylenol Tablet) (08/19/19 22:00) Calcium Carbonate Chew Tablet (Antacid C (08/19/19 22:00) Loperamide Tablet (Imodium Tablet) (08/19/19 22:00) Melatonin Tablet (Melatonin Tablet) (08/19/19 22:00) Ondansetron Oral Dissolve Tab (Zofran (08/19/19 22:00) Senna S Tablet (Senokot S Tablet) (08/20/19 09:00) Hydrocodone/Apap 5/325 Tablet (Lortab 5 (08/19/19 22:00) Guaifenesin/Codeine Syrup (Robitussin Ac (08/19/19 22:00) Docusate Sodium Capsule (Colace Capsule) (08/19/19 22:00) Consult Cardiology (08/19/19 21:51) Admission Order(Inpt,Obs,Sdc) (08/20/19 08:58) Cbc With Automated Diff (08/20/19 09:00) Comprehensive Metabolic Panel (08/20/19 09:00) BNP (08/20/19 09:00) Thyroid Stimulating Hormone (08/20/19 09:00) Patient Visit (08/20/19 ) Pt Eval Moderate Complexity (08/20/19 ) Functional Activities, Ea 15 (08/20/19 ) Exercise Therap, Ea 15 Min (08/20/19 ) Alprazolam Tablet (Xanax Tablet) (08/20/19 10:15) Potassium Chloride (Tablet) (Klor Con Ta (08/21/19 09:00) Spironolactone Tablet (Aldactone Tablet) (08/21/19 09:00) (Nf) Aspirin (Aspir 81) (08/20/19 10:15) (Nf) Bumetanide (08/20/19 17:00) (Nf) Losartan Potassium (Cozaar) (08/21/19 09:00) Simvastatin Tablet (Zocor Tablet) (08/20/19 12:00) (Nf) Magnesium Oxide (Mag-Oxide) (08/20/19 10:15) Nitrofurantoin Capsule (Macrodantin Caps (08/20/19 21:00) Spironolactone Tablet (Aldactone Tablet) (08/20/19 10:15) Bumetanide Tablet (Bumex Tablet) (08/20/19 10:15) Losartan Tablet (Cozaar Tablet) (08/20/19 10:15) Magnesium Oxide Tablet (Mag Ox Tablet) (08/20/19 12:00) Cyclobenzaprine Tablet (Flexeril Tablet) (08/20/19 12:30) Glimepiride Tablet (Amaryl Tablet) (08/20/19 21:00) Diphenhydramine Tablet (Benadryl Tablet) (08/20/19 13:00) Guaifenesin/Dm Syrup (Robitussin Dm Syru (08/20/19 13:00) Albuterol Pre-Mix Nebs (Rt) (Proventil (08/20/19 12:30) Svn Small Volume Nebulizer (08/20/19 12:17) Svn Small Volume Nebulizer (08/20/19 12:17) Insulin Determir (Per Unit) (Levemir (Pe (08/20/19 21:00) Insulin Aspart (Novolog) (Novolog (Charg (08/20/19 17:00) Insulin Aspart (Novolog) (Novolog (Charg (08/20/19 13:00) Insulin Aspart (Novolog) (Novolog (Charg (08/20/19 12:51) Bisacodyl Suppository (Dulcolax Supposit (08/20/19 14:00) Na Phos/Na Biphos Enema (Fleet Enema Madi (08/20/19 15:30) (Nf) Aspirin (Aspir 81) (08/21/19 09:00) Aspirin Chewable Tablet (Baby Aspirin Ch (08/21/19 10:00) Diclofenac 1% Gel (Voltaren 1% Gel) (08/21/19 10:15) Patient May Use Own Meds, All (Patient M (08/21/19 14:30) Nitrofurantoin Capsule,Macro (Macrobid C (08/21/19 21:00) Glimepiride Tablet (Amaryl Tablet) (08/21/19 21:00) Non-Formulary Medication (Non-Formulary (08/21/19 21:00) General/Regular (08/21/19 Dinner) Glimepiride Tablet (Amaryl Tablet) (08/22/19 17:00) Ekg Tracing (08/21/19 18:34) Rehab Nursing Orders: Ongoing Assess. of Cognitive Status, Ongoing Assess. of Function Status, Bladder Management, Bladder Scan, Bladder Training, Bowel Management, Bowel Training, Disease Management & Educaiton, DVT Prophylaxis, Fall Prevention, Fluid/Electrolyte/Nutrition Mgmt, Infection Prevention, Me dication Management & Education, Management of Risks & Complications, Nutrition Management, Pain Management, Patient/Family Support, Safety Management Intensity of Therapy to be met Patient to be seen: Min.3h per day/5 of 7d PT IPOC Problem List: Activity Tolerance, Functional Strength, Safety, Balance, Gait, Transfer, Bed Mobility Treatment Plan: Continue Plan of Care Bed Mobility, Concurrent Therapy, Education, Functional Activity Mary, Functional Strength, Group Therapy, Gait, Safety, Therapeutic Exercise, Transfers Treatment Duration: Sep 10, 2019 Frequency: At least 5 of 7 days/Wk (IRF) Estimated Hrs Per Day: 1.5 hours per day OT IPOC Problems: Decreased Activ Tolerance, Decreased Safety Aware, Impaired Self-Care Skills OT Treatment, Training and Edu: Yes OT Problems Pt would benefit from skilled OT to increase her independence in basic self care to allow her to safely return home to live alone after hospitalization. Plan of Care: ADL Retraining, Functional Mobility, Group Exercise/Act as Ind (education, exercise, socialization, funct mobility, activity tolerance), UE Funct Exercise/Act, UE Neuromus Re-Ed/Coord, W/C Management Training, OTHER (energy conservation education) Treatment Duration: Sep 03, 2019 Frequency: At least 5 of 7 days/Wk (IRF) Estimated Hrs Per Day: Other ST IPOC Speech Therapy Treatment Plan: Discontinue ST Treatment Duration: Aug 13, 2019 Frequency: Modified Program (IRF) Estimated Hrs Per Day: Other Certified Recreational Therapist/Case Mgmt Certified Recreational Therapist/Case Managemen: Discharge Planning Dietitian/Boat Fueler Dietitian/Boat Fueler to monitor nutritional status and make changes and/or recommendations as needed and work with speech pathology on dietary upgrades as the occur. Physician IPOC Medical Issues being managed closely and that require the 24 hour availability of a physician: Severe cardiomyopathy preparing for valve replacement status post urgent valvuloplasty will require telemetry and close cardiology management for decompensation evaluation Medical Issues: Bowel/Bladder Function, DVT Prophylaxis, Falls Precautions, Fluid/Electrolyte/Nutrition Balance, Pain Management Brief Synthesis of Preadmission Screen, Post-Admission Evaluation, and Therapy Evaluations: Physical therapy will ensure safety when ambulating with assistive device Occupational Therapy will work on regaining independence with ADLs to assure she can return home Medical Prognosis: Good Anticipated Length of Stay: 5 days MALLORY TUCKER DO Aug 21, 2019 11:37
[2019-08-21] MEDS: MAGNESIUM OXIDE (MAG-OX)400 MG TAB PO SCH (12:07)
[2019-08-21] MEDS: SIMvastatin 20 MG (ZOCOR) TAB PO SCH (12:07)
--- NOTE | 2019-08-21 14:26 | NUR ---
Patient requesting to take 2nd Senokot at this time.
[2019-08-21] MEDS ORDERED: PATIENT MAY USE OWN MEDS, ALL MC SCH (14:30)
--- NOTE | 2019-08-21 14:53 | NUR ---
Daughter brought in Amaryl, Benadryl, and Macrobid.
--- NOTE | 2019-08-21 15:52 | NUR ---
Patient requesting to switch from a heart healthy diet to a regular diet. Dr. Wilde notified and ok with regular diet.
[2019-08-21 17:36] VITALS: BP 90/52
--- NOTE | 2019-08-21 17:37 | NUR ---
Amaryl given at this time. Patient states that she takes it with evening meal.
[2019-08-21 19:02] VITALS: BP 145/69
--- NOTE | 2019-08-21 19:03 | NUR ---
Walked in halls with RN. Shortly after returning to room, patient voiced complaints of chest pain, 2/. States, left arm is cold and "tingly". BP 145/69, HR 99, oxygen 100% on 2L per NC. EKG done. Xanax given per patient's request. States, "could be having an anxiety attack". Dr. Bansal called and notified of above. Picture of EKG sent via text per Dr. Bansal's request.
--- NOTE | 2019-08-21 19:17 | NUR ---
States pain "slightly better, 12/09".
[2019-08-21] MEDS: NITROFURANTOIN 100 MG (MACROBID) CAPSULE PO SCH (20:53)
[2019-08-21] MEDS ORDERED: GLIMEPIRIDE 4 MG (AMARYL) TAB PO SCH (21:00)
--- NOTE | 2019-08-21 21:00 | NUR ---
CONTINUES TO RATE CHEST PAIN A "1". ASSISTED UP TO BATHROOM AND TOLERATED WELL. INCONTINENT OF URINE. MULTIPLE NEEDS WHEN IN ROOM. HAS A NEW AREA LEFT REY AREA WHICH IS ROUND AND SWOLLEN AND FIRM TO TOUCH. WILL PASS ON TO IN AM. KPAD ONTO BACK. CPAP PUT ON AND 4 RAILS UP.
[2019-08-22 05:22] VITALS: BP 141/77
[2019-08-22 05:22] LABS: BASOPHILS # (AUTO) 0.1 10^3/uL (0.0-0.1); BASOPHILS % (AUTO) 2 % (0-10); EOSINOPHILS # (AUTO) 0.5 10^3/uL (0.0-0.3); EOSINOPHILS % (AUTO) 7 % (0-10); HEMATOCRIT 35 % (35-52); LYMPHOCYTES # (AUTO) 1.3 X 10^3 (1.0-4.0); LYMPHOCYTES % (AUTO) 17 % (12-44); MEAN CORPUSCULAR HEMOGLOBIN 26 PG (25-34); MEAN CORPUSCULAR HGB CONC 31 G/DL (32-36); MEAN CORPUSCULAR VOLUME 83 FL (80-99); MONOCYTES # (AUTO) 1.1 X 10^3 (0.0-1.0); MONOCYTES % (AUTO) 15 % (0-12); NEUTROPHILS # (AUTO) 4.4 X 10^3 (1.8-7.8); NEUTROPHILS % (AUTO) 59 % (42-75); PLATELET COUNT 327 10^3/uL (130-400); RED CELL DISTRIBUTION WIDTH 14.8 % (10.0-14.5); WHITE BLOOD COUNT 7.4 10^3/uL (4.3-11.0)
[2019-08-22 05:40] LABS: ALANINE AMINOTRANSFERASE 22 U/L (0-55); ALBUMIN 3.3 GM/DL (3.2-4.5); ALKALINE PHOSPHATASE 63 U/L (40-136); BILIRUBIN,TOTAL 0.6 MG/DL (0.1-1.0); BUN/CREATININE RATIO 27; CALCIUM 9.3 MG/DL (8.5-10.1); CARBON DIOXIDE 33 MMOL/L (21-32); CHLORIDE 92 MMOL/L (98-107); CREATININE SERUM 0.81 MG/DL (0.60-1.30); GFR ESTIMATED > 60; GLUCOSE 79 MG/DL (70-105); POTASSIUM 3.5 MMOL/L (3.6-5.0); SODIUM 137 MMOL/L (135-145)
[2019-08-22] MEDS: BUMETANIDE 1 MG (BUMEX) TAB PO SCH ×2 (06:46→17:56)
[2019-08-22] MEDS: CYCLOBENZAPRINE 10 MG (FLEXERIL) TAB PO PRN (06:52)
[2019-08-22] MEDS: inSUlin ASPART (NovoLOG) 1 UNIT/0.01 ML (CHARGE PER UNIT) SC SCH ×3 (07:43→17:56)
[2019-08-22] MEDS: BISACODYL 10 MG SUPP (DULCOLAX) PR PRN (08:12)
[2019-08-22] MEDS: ALPRAZolam 0.5 MG (XANAX) TAB PO PRN ×3 (08:30→21:13)
--- NOTE | 2019-08-22 08:35 | Cardiology Progress Note ---
Subjective Date Seen by Provider: Aug 22, 2019 Time Seen by Provider: 08:20 Subjective/Events-last exam Patient is sitting up in wheelchair, complaining of foot cramps this morning. Denies any chest pain or increased dyspnea. Review of Systems General: No Chills, No Night Sweats; Fatigue; No Malaise, No Appetite, No Other HEENT: No Head Aches, No Visual Changes, No Eye Pain, No Ear Pain, No Dysphasia, No Sinus Congestion, No Post Nasal Drip, No Sore Throat, No Other Pulmonary: Dyspnea; No Cough, No Pleuritic Chest Pain, No Other Cardiovascular: Chest Pain; No: Palpitations, Orthopnea, Paroxysmal Noc. Dyspnea, Edema, Lt Headedness, Other Objective-Cardiology Exam Last Set of Vital Signs Vital Signs 08/22/19 05:22 Temp 35.6 Pulse 97 Resp 20 B/P (MAP) 141/77 (98) Pulse Ox 98 O2 Delivery Nasal Cannula O2 Flow Rate 2.00 Capillary Refill : I&O Intake and Output 08/22/19 00:00 Intake Total 1200 ml Balance 1200 ml Intake Oral 1200 ml # Voids 5 # Bowel Movements 1 General: Alert, Oriented X3, Cooperative HEENT: Atraumatic, PERRLA Neck: Supple, No JVD, No Thyromegaly Lungs: Normal Air Movement Heart: Regular Rate, Normal S1, Normal S2, No Murmurs, Other (systolic murmur at the left sternal border) Abdomen: Normal Bowel Sounds, Soft, No Tenderness, No Hepatosplenomegaly, No Masses Extremities: No Clubbing, No Cyanosis, No Edema, Normal Pulses, No Tenderness/Swelling Skin: No Rashes, No Breakdown, No Significant Lesion Neuro: Normal Gait, Normal Speech, Strength at 5/5 X4 Ext, Normal Tone, Sensation Intact Psych/Mental Status: Mental Status NL, Mood NL Results Lab Laboratory Tests 08/22/19 04:45 A/P-Cardiology Admission Diagnosis Critical aortic valve stenosis Congestive heart failure, acute on chronic left ventricular systolic dysfunction, nonischemic cardiomyopathy Hypertension Hyperlipidemia Assessment/Plan Critical aortic valve stenosis status post balloon valvuloplasty, has been following with Dr. Del Toro, continue to monitor. Planning for appt with Dr. Bang in near future. Congestive heart failure, severe cardiomyopathy nonischemic, acute on chronic left ventricular systolic dysfunction, secondary to valvular heart disease. Reported ejection fraction 25 percent Hypotension secondary to medication, blood pressure better this morning. Continue on current medication with parameter to hold blood pressure medication if systolic below 90. Hyperlipidemia, monitor lipids Reported history of CVA in the past History of intolerance to TUSHAR inhibitor with cough. Diabetes mellitus Anxiety. Debility Clinical Quality Measures DVT/VTE Risk/Contraindication: Risk Factor Score Per Nursin RFS Level Per Nursing on Admit: 4+=Very High Supervisory-Addendum Brief Supervisory Addendum Participated in pt care: history, MDM, physical Personally performed: exam, history, MDM Care discussed with: MADAI Notes: Patient was seen and evaluated, had an episode of chest pain last night, EKG did not show any acute changes On examination lungs were clear to auscultation bilaterally, heart is regular, systolic murmur at the left sternal border Regarding her critical aortic stenosis patient is scheduled for follow-up with Dr. Bang She is borderline hypotensive secondary to medication, tolerating her medication well We will continue with physical therapy and continue to monitor ANJANA CAT Aug 22, 2019 08:35 CAYETANO AGUIAR MD Aug 22, 2019 09:51
[2019-08-22] MEDS: guaiFENesin/DM (ROBITUSSIN DM) 10 ML UDC PO SCH ×3 (09:46→21:13)
[2019-08-22] MEDS: SPIRONOLACTONE 25 MG (ALDACTONE) TAB PO SCH (09:46)
[2019-08-22] MEDS: KCL 10 MEQ TAB (MICRO K) PO SCH (09:46)
[2019-08-22] MEDS: SENNA W/DOCUSATE (SENOKOT S) TABLET PO SCH ×2 (09:46→21:13)
[2019-08-22] MEDS: LOSARTAN 25 MG (COZAAR) TAB PO SCH (09:46)
--- NOTE | 2019-08-22 09:48 | Occupational Ther Daily Note ---
OT Current Status-Daily Note Subjective Pt seen on toilet, trying to have a BM. Pt pulling on grab bars and pushing for attempted BM. Pt c/o pain in lower back and muscle spasms within BLE. Pt agreeable to OT tx session, desiring a shower on this date. Mental Status/Objective Patient Orientation: Normal For Age Therapy Code Descriptions/Definitions Functional [place] Measure: 0=Not Assessed/NA 4=Minimal Assistance 1=Total Assistance 5=Supervision or Setup 2=Maximal Assistance 6=Modified [place] 3=Moderate Assistance 7=Complete [place] Attachments: Oxygen ADL-Treatment Therapy Code Descriptions/Definitions Functional [place] Measure: 0=Not Assessed/NA 4=Minimal Assistance 1=Total Assistance 5=Supervision or Setup 2=Maximal Assistance 6=Modified [place] 3=Moderate Assistance 7=Complete [place] Therapy Quality Codes: 6 Independent with activity with or without an assistive device 5 Patient requires set up or clean up by helper. Patient completes activity by themselves 4 Supervision or touching assist (CGA). [place] provide cues , steadying assist 3 The helper provides less than half the effort to complete the activity 2 The helper provides more than half the effort to complete the activity 1 Dependent. The helper does all the effort to complete an activity 7 Patient refused to complete or attempt activity 9 The patient did not perform the activity before the current illness or injury 88 Not attempted due to Medical conditions or safety concerns Eating (FIM): 6 Eating (QC): 6 Grooming (FIM): 5 (Pt completes in w/c at sink- hand hygiene and hair brushing. Pt requires s/u) Bathing (FIM): 4 (Pt requires SBA in shower due to safety, pt has good static standing balance with use of grab bars. Pt requests need to have BM. Pt pushes to attempt BM as she stands at grab bars in shower. Pt states she needs breifs or selwyn pad under bottom so she can have BM in shower, pt denies use of commode due to it being uncomfortable, denies need of going to toilet as she states she will "go" each time she stands. Pt continues pushing, pt educated of need to move around for easier BM and decreased risk of straining injury. Pt states she has back and muscle spasms and denies moving from shower or washing hair or body until BM is complete. Pt requests "cleaning out/ unpacking" BM, pt educated of risks. Pt completes BM upon multiple stances, pt requires clean up assist and washing of bottom/ upper legs. Pt able to wash all other areas with mod I- seated on shower seat and use of long handled sponge. ) Shower/Bathe Self (QC): 3 Upper Body (FIM): 5 (Pt requires cues for threading 02 tubing through shirt, pt completes while seated in w/c.) Upper Body Dressing (QC): 4 Lower Body Dressing (FIM): 2 (Pt requires assist threading BLE through brief and BLE for socks. Pt able to pull briefs up while standing at grab bars by toilet.) Lower Body Dressing (QC): 2 On/Off Footwear (QC): 2 (Pt able to open packaging, able to direct care. Pt requires threading of BLE, able to lift feet off floor. Pt states her caregivers assist with socks if she wears them, pt states she never wears socks at home.) Toileting (FIM): 4 (Pt requires assist for thorough wiping. Pt able to complete other toileting tasks with SBA.) Transfers (B, C, W/C) (FIM): 5 (Pt completes sit to stand with SBA. Uses FWW for transfer into shower and commode arm rest/ grab bar for sit to stand from toilet to w/c. ) Toilet/Commode Transfer (FIM): 5 (SBA) Toilet Transfer (QC): 4 (SBA) Tub Transfer(FIM): 5 (SBA, use of FWW and grab bars.) Other Treatment Pt requests shower on this date. Pt states constipation, nursing notified and completed medication management for BM. Pt utilized toilet, c/o fatigue, mm aches, and back spasms. Pt agreeable to shower. Pt states her caregivers assist in showering her prior to hospitalization- pt states she did no portion of shower, and caregivers completed hair washing as well. Pt completes shower with min A (only assist for bottom hygiene due to BM in shower). Pt states caregivers assist with brief donning and threading BLE, as she is unable to reach bilateral feet. When asked what she is not able to do now that she was able to do prior to hospitalization, pt stated, "Well, I am able to shower myself now, I washed my hair, I use to have breathing difficulties, now I don't." When asked again if there was anything she was unable to do that she could before the hospital, pt stated, "No, my caregivers help me out. But I would like to walk small distances, from one end of my house and back." Pt states she has not been using FWW for mobility for 6 months prior to hospitalization. Pt denies knowledge of using w/c, pt states, "You're going to have to move me, I'm not use to this. I have help pushing this w/c around." Pt left in w/c with feet reclined, pt has ca ll light in reach and all needs met. Education OT Patient Education: Correct positioning, Energy conservation, Modified ADL techniques, Purpose of tx/functional activities, Rehab process, Safety issues, Transfer techniques, Use of adapted equipment Teaching Recipient: Patient Teaching Methods: Demonstration, Discussion Response to Teaching: Verbalize Understanding, Return Demonstration OT Short Term Goals Short Term Goals Time Frame: Aug 27, 2019 Grooming(FIM): 5 (met) Toileting(FIM): 4 (met) Toilet/Commode Transfer(FIM): 5 (met) Additional Short Term Goals: 1-Demonstrate ADL Tasks, 2-Verbalize Understanding, 3-ImproveStrength/Mary 1=Demonstrate adherence to instructed precautions during ADL tasks. 2=Patient will verbalize/demonstrate understanding of assistive devices/modifications for ADL. 3=Patient will improve strength/tolerance for activity to enable patient to perform ADL's. OT Aids Nurse Goals Aids Nurse Goals Time Frame: Sep 03, 2019 Eating (FIM): 6 (met) Eating (QC): 6 (met) Groomin Oral Hygiene (QC): 6 Bathing(FIM): 5 Shower/Bathe Self (QC): 5 Upper Body Dressing(FIM): 6 Upper Body Dressing (QC): 6 Lower Body Dressing(FIM): 6 Lower Body Dressing (QC): 6 On/Off Footwear (QC): 6 Toileting(FIM): 6 Toileting Hygiene (QC): 6 Toilet/Commode Transfer(FIM): 6 Toilet/Commode Transfer (QC): 6 Shower Transfer(FIM): 6 Additional Goals: 1-Demonstrate ADL Tasks, 2-Verbalize Understanding, 3- ImproveStrength/Mary 1=Demonstrate adherence to instructed precautions during ADL tasks. 2=Patient will verbalize/demonstrate understanding of assistive devices/modifications for ADL. 3=Patient will improve strength/tolerance for activity to enable patient to perform ADL's. OT Education/Plan Problem List/Assessment Assessment: Decreased Activ Tolerance, Impaired I ADL's, Impaired Self-Care Skills Pt would benefit from skilled OT to increase her independence in basic self care to allow her to safely return home to live alone after hospitalization. Discharge Recommendations Plan/Recommendations: Continue POC Therapy Discharge Recommendati: Scheduled Assistance, Meals on Wheels, Bath Aide, Homemaker Support Comment Pt received caregiver assist within her home prior to hospitalization. Patient/Family Goals Pt wishes to walk with FWW from one end of house to other. Treatment Plan/Plan of Care Treatment,Training & Education: Yes Patient would benefit from OT for education, treatment and training to promote independence in ADL's, mobility, safety and/or upper extremity function for ADL's. Plan of Care: ADL Retraining, Functional Mobility, Group Exercise/Act as Ind (education, exercise, socialization, funct mobility, activity tolerance), UE Funct Exercise/Act, UE Neuromus Re-Ed/Coord, W/C Management Training, OTHER (energy conservation education) Treatment Duration: Sep 03, 2019 Frequency: At least 5 of 7 days/Wk (IRF) Estimated Hrs Per Day: Other Agreement: Yes Rehab Potential: Good Time/GCodes Start Time: 08:05 Stop Time: 09:35 Total Time Billed (hr/min): 90 Billed Treatment Time 1 ADL x6 (90) IVY THORNE OTR Aug 22, 2019 09:48
--- NOTE | 2019-08-22 10:04 | PM&R Progress Note ---
Subjective HPI/CC On Admission Date Seen by Provider: Aug 22, 2019 Time Seen by Provider: 09:00 Chief complaint: Myopathy with debility History of present illness: This is a 79-year-old white female clinic patient of Kalee Harvey in [facility] who has a past medical history of diabetes mellitus and hypertension with valvular heart disease who presents following a 10 day hospital stay at [facility] when she was admitted there for congestive heart failure found to have ejection fraction of 25 percent. She was having shortness of breath and continued to have shortness of breath since that time and further evaluation showed severe aortic stenosis. She was treated for congestive heart failure in preparation for a TVAR in the future but managing her volume status was difficulty so a valvuloplasty was required and significantly improved her status she began breathing better and the pulmonary edema on chest x-ray was much improved. Her creatinine remained normal at 1.0. She did have mild anemia and that was monitor closely along with glucose monitoring. Dr. Luiz Pastor is her primary press operator printing. She will see cardiovascular surgeon Dr. Buckner and 32 days to arrange for scheduling the TVAR. Currently patient is very upset that she has not received her alprazolam benzodiazepine for her anxiety she does not appear to be terribly anxious but will try to reassure her with a warm blanket while her home medications are being put in the computer in order to restart. Appreciate Dr. Bansal in consultation also. Subjective/Events-last exam Pt having real difficulty evacuating bowels Her bowels are moving but requests the nurse to disimpact her of which she is doing herself Doesn't feel like she can participate in therapy because she needs to do a digital disimpaction Had her legs on the wall in front of the toilet to try to evacuate her bowels early this morning Seems to be doing very well on this third mattress she has requested just like she did at [facility] Pt nearly back at her baseline so likely will plan for DC soon Check meds and labs Reviewed therapy notes Conferred with school plant consultant of Systems General: Fatigue Pulmonary: Dyspnea Musculoskeletal: back pain Objective Exam Vital Signs Vital Signs Date Time Temp Pulse Resp B/P (MAP) Pulse Ox O2 Delivery O2 Flow Rate FiO2 08/22/19 19:31 99 Room Air 2.00 08/22/19 15:58 35.8 89 14 99/63 (75) Capillary Refill : General Appearance: No Apparent Distress, WD/WN, Chronically ill, Obese HEENT: PERRL/EOMI, Normal ENT Inspection, Pharynx Normal, Moist Mucous Membranes Neck: Full Range of Motion, Normal Inspection, Non Tender, Supple Respiratory: Chest Non Tender, Lungs Clear, Normal Breath Sounds, No Accessory Muscle Use, No Respiratory Distress, Decreased Breath Sounds Cardiovascular: No Edema, No Gallop, No JVD, Bradycardia, Systolic Murmur, Irregularly Irregular Gastrointestinal: Normal Bowel Sounds, No Organomegaly, No Pulsatile Mass, Non Tender, Soft Back: Normal Inspection, No CVA Tenderness, No Vertebral Tenderness Extremity: Normal Capillary Refill, Normal Inspection, Normal Range of Motion, Non Tender, No Calf Tenderness, Pedal Edema Neurologic/Psychiatric: Alert, Oriented x3, No Motor/Sensory Deficits, Normal Mood/Affect, food and beverage director II-XII Norm as Tested, Motor Weakness (generalized in arms and legs upper and lower) Skin: Normal Color, Warm/Dry Lymphatic: No Adenopathy Results/Procedures Lab Laboratory Tests 08/22/19 04:45 Patient resulted labs reviewed. FIM Transfers Therapy Code Descriptions/Definitions Functional [place] Measure: 0=Not Assessed/NA 4=Minimal Assistance 1=Total Assistance 5=Supervision or Setup 2=Maximal Assistance 6=Modified [place] 3=Moderate Assistance 7=Complete [place] Therapy Quality Codes: 6 Independent with activity with or without an assistive device 5 Patient requires set up or clean up by helper. Patient completes activity by themselves 4 Supervision or touching assist (CGA). [place] provide cues , steadying assist 3 The helper provides less than half the effort to complete the activity 2 The helper provides more than half the effort to complete the activity 1 Dependent. The helper does all the effort to complete an activity 7 Patient refused to complete or attempt activity 9 The patient did not perform the activity before the current illness or injury 88 Not attempted due to Medical conditions or safety concerns Transfers (B, C, W/C) (FIM): 5 (Pt completes sit to stand with SBA. Uses FWW for transfer into shower and commode arm rest/ grab bar for sit to stand from toilet to w/c. ) Scootin Rollin Roll Left to Right (QC): 5 Supine to/from Sit: 5 Sit to/from Stand: 5 Sit to Lying (QC): 5 Sit to Stand (QC): 5 Chair/Com-yn-Ekvmj Xfer(QC): 5 Bed to/from Chair: 5 Car Transfer (QC): 5 Gait Training Does the Patient Walk?: Yes Gait (FIM): 5 Distance (FIM): 3=150 ft Walk 10 feet (QC): 5 Walk 50 ft with 2 Turns(QC): 5 Walk 150 ft (QC): 5 Walking 10ft/uneven surface-QC: 5 Gait Level of Assist: 5 Gait Assistive Device: FWW Stair Training Stairs (FIM): 2 #of Steps: 2 1 Step (curb) (QC): 4 4 Steps (QC): 88 12 Steps (QC): 9 Level of Assist: 4 ADL-Treatment Feedin Eating (QC): 6 Groomin (Pt completes in w/c at sink- hand hygiene and hair brushing.) Oral Hygiene (QC): 6 Bathin (Pt requires SBA in shower due to safety, pt has good static standing balance. Pt requests need to have BM. Pt pushes as she stands at grab bars in shower. Pt states she needs breifs or selwyn pad under bottom so she can have BM in shower, pt denies use of commode due to it being uncomfortable, denies need of going to toilet as she states she will "go" each time she stands. Pt continues pushing, pt educated of need to move around for easier BM. Pt states she has back and muscle spasms and denies moving from shower or washing hair or body until BM is complete. Pt requests "cleaning out/ unpacking" BM, pt educated of risks. Pt completes BM upon multiple stances, pt requires clean up assist and washing of bottom/ upper legs. Pt able to wash all other areas with mod I- seated on shower seat and use of long handled sponge. ) Bathing Location: L Arm, R Arm, L Upper Leg, R Upper Leg, Chest, Abdomen, Buttocks, Perineal Area Shower/Bathe Self (QC): 3 Upper Extremity Dressin (Pt requires cues for threading 02 tubing through shirt, pt completes while seated in w/c.) Upper Body Dressing (QC): 4 Lower Extremity Dressin (Pt requires assist threading BLE through brief and BLE for socks. Pt able to pull briefs up while standing at grab bars by toilet.) Lower Body Dressing (QC): 2 On/Off Footwear (QC): 2 (Pt able to open packaging, able to direct care. Pt requires threading of BLE, able to lift feet off floor. Pt states her caregivers assist with socks if she wears them, pt states she never wears socks at home.) Toiletin (Pt requires assist for thorough wiping. Pt able to complete other toileting tasks with SBA.) Toileting Hygiene (QC): 4 Toilet/Commode Transfer: 5 (SBA) Toilet Transfer (QC): 4 (SBA) Tub: 5 (SBA, use of FWW and grab bars.) Shower: 4 Assessment/Plan Assessment and Plan Assess & Plan/Chief Complaint Assessment: Myopathy Debility Congestive heart failure 25 percent ejection fraction line severe aortic stenosis status post valvuloplasty temporarily in preparation for TVAR at [facility] Diabetes mellitus Osteoarthritis Anxiety Sleep apnea Depression Plan: Continue home meds anxiolytics Pain medication Appreciate Dr. Bansal Reviewed labs Mattress change per patient request DC home soon (1) Myopathy Status: Acute (2) Congestive heart failure Status: Acute Qualifiers: Heart failure type: systolic Heart failure chronicity: acute on chronic Qualified Codes: I50.23 - Acute on chronic systolic (congestive) heart failure (3) CAD (coronary artery disease) Status: Chronic Qualifiers: Coronary Disease-Associated Artery/Lesion type: [place] artery [place] vs. transplanted heart: [place] heart Associated angina: without angina Qualified Codes: I25.10 - Atherosclerotic heart disease of [place] coronary artery without angina pectoris (4) Diabetes mellitus Status: Chronic Qualifiers: Diabetes mellitus type: type 2 Diabetes mellitus shelter insulin use: without terminal superintendent use Diabetes mellitus complication status: with other specified complication Qualified Codes: E11.69 - Type 2 diabetes mellitus with other specified complication (5) Morbid obesity Status: Chronic (6) Sleep apnea Status: Chronic Qualifiers: Sleep apnea type: unspecified type Qualified Codes: G47.30 - Sleep apnea, unspecified (7) Anemia Status: Chronic Qualifiers: Anemia type: unspecified type Qualified Codes: D64.9 - Anemia, unspecified (8) Elevated brain natriuretic peptide (BNP) level Status: Chronic (9) Aortic stenosis Status: Chronic Qualifiers: Cardiac valve disease etiology: etiology unspecified Qualified Codes: I35.0 - Nonrheumatic aortic (valve) stenosis (10) Anxiety Status: Chronic (11) Depression Status: Chronic Qualifiers: Depression Type: unspecified Qualified Codes: F32.9 - Major depressive disorder, single episode, unspecified (12) Multiple sclerosis Status: Chronic MALLORY TUCKER DO Aug 22, 2019 10:04
[2019-08-22] MEDS ORDERED: GUAI5SYR PO (10:21)
[2019-08-22] MEDS ORDERED: GLIM4TAB56 PO (10:21)
[2019-08-22] MEDS ORDERED: ALPR1TAB7 PO (10:21)
[2019-08-22] MEDS ORDERED: LOVA20TA2 PO (10:21)
[2019-08-22] MEDS ORDERED: POTA20TA15 PO (10:21)
[2019-08-22] MEDS ORDERED: NITR100C PO (10:21)
[2019-08-22] MEDS ORDERED: INSU100I34 SC (10:21)
[2019-08-22] MEDS ORDERED: FURO40TA4 PO (10:21)
[2019-08-22] MEDS ORDERED: MAGN250T35 PO (10:21)
[2019-08-22] MEDS ORDERED: ALBU18HF2 INH (10:21)
[2019-08-22] MEDS ORDERED: LINA5TAB PO (10:21)
[2019-08-22] MEDS ORDERED: DILT60TA PO (10:21)
--- NOTE | 2019-08-22 10:23 | NUR ---
PATIENT WAS ADMITTED OVER THE WEEKEND SO I UPDATED THE MED REC TO THE LIST OF MEDICATIONS THE PATIENT WAS TAKING AT HOME PRIOR TO DISCHARGE FROM [facility]. NOTE THE FOLLOWING CHANGES WERE MADE WHEN THE PATIENT DISCHARGED THAT ARE NOT CURRENTLY REFLECTED ON THE HOME MED REC: START TAKING: SPIRONOLACTONE 25MG DAILY BUMEX 2MG 0600,1800 LOSARTAN 25MG DAILY FLEXERIL 10MG Q8H PRN HUMALOG 5 UNITS AC LEVEMIR 30 UNITS HS (ALSO STARTED WERE ASPIRIN 81MG [id number] AND VENTOLIN HOWEVER THESE SAME ORDERS WERE ALSO CONTINUED FROM HOME MEDS) STOP TAKING: BASAGLAR 20 UNITS 1200 TRADJENTA 5MG DAILY DILTIAZEM 15MG QID (THIS WAS FILLED 60MG #163 FOR 41 DAYS 07-27-19, I PUT IT ON 60MG QID) FUROSEMIDE 40MG 2 DAILY I COMPARED THE EXT MED HX WITH THE CONTINUE DISCHARGE ORDERS. [facility] CONTINUED THE LOVASTATIN 40MG AT 1200 HOWEVER IT WAS LAST FILLED #90 05-24-19 FOR 20MG TABS. I UPDATED THE MED REC TO THE 20MG STRENGTH. ALSO THE ALPRAZOLAM WAS CONTINUED FROM [facility] 0.5MG QID PRN, IT WAS FILLED 1MG TID #90 08-02-19, I LEFT IT 1/2 TAB QID PRN PATIENT MAY BE TAKING IT DIFFERENTLY THAN PRESCRIBED. OTC MEDS REPORTED WERE ASPIRIN 81MG Q96H, BENADRYL 25MG TID, MAGNESIUM 250MG 1200, AND ROBITUSSIN DM TID.
--- NOTE | 2019-08-22 10:57 | Physical Therapy Daily Note ---
PT Daily Note-Current Subjective Pt. states her biggest problem is she cant have a complete BM and the toilet seats in her bathroom hurt her tailbone. Pt states she has colon problems and cant eat most foods that help with fiber for motility. Pt. agrees to walk to shower room for trial of toilet there as it is slightly larger than the toilet seat in her room. Pt. found this adequate and did in fact have a medium to lg BM on that toilet seat. Pain Numeric Pain Scale: 5-Moderate Pain Location: Medial Location Body Site: Back Pain Description: Ache Mental Status Patient Orientation: Person, Place, Time, Situation Attachments: Oxygen (3L) Transfers Therapy Code Descriptions/Definitions Functional [place] Measure: 0=Not Assessed/NA 4=Minimal Assistance 1=Total Assistance 5=Supervision or Setup 2=Maximal Assistance 6=Modified [place] 3=Moderate Assistance 7=Complete [place] Therapy Quality Codes: 6 Independent with activity with or without an assistive device 5 Patient requires set up or clean up by helper. Patient completes activity by themselves 4 Supervision or touching assist (CGA). [place] provide cues , steadying assist 3 The helper provides less than half the effort to complete the activity 2 The helper provides more than half the effort to complete the activity 1 Dependent. The helper does all the effort to complete an activity 7 Patient refused to complete or attempt activity 9 The patient did not perform the activity before the current illness or injury 88 Not attempted due to Medical conditions or safety concerns Transfers (B, C, W/C) (FIM): 5 Scootin Sit to/from Stand: 5 Bed to/from Chair: 5 Gait Training Does the Patient Walk?: Yes Gait (FIM): 5 Distance (FIM): 3=150 ft (150,75x2) Gait Level of Assist: 5 Gait Persons Needed: 1 Gait Assistive Device: FWW needs assist for portable O2 during gait. manages extended O2 well with gait inside room walking as far as O2 tubing will let her go and states she is use to that from home Exercises Seated Therapy Exercises: Ankle pumps, Long arc quads, Hip flexion, Hip abd/add Seated Reps: 15 Treatments pt. ambulated to toilet in shower area and back, O2 sats 98% with pt. c/o back pain while on feet. This Rx focused on finding a comfortable toilet for BM as pt.feels she cannot really make functional progress until she can fully evacuate her bowels. Assessment Current Status: Good Progress pt. states she really only walks around her home and does not go out much PT Skilled Nursing Goals Cooling Machine Operator Goals PT Skilled Nursing Goals Time Frame: Sep 10, 2019 Transfers (B,C,W/C) (FIM): 6 Sit to Lying (QC): 6 Lying-Sitting on Side/Bed(QC): 6 Sit to Stand (QC): 6 Rollin Roll Left to Right (QC): 6 Chair/Rxc-ey-Kpzoq Xfer(QC): 6 Car Transfer (QC): 6 Does the Patient Walk: Yes Gait (FIM): 6 Gait distance (FIM): 3=150 ft Distance: 150' Walk 10 feet (QC): 6 Walk 10ft-Uneven Surface(QC): 6 Walk 50ft with 2 Turns (QC): 6 Walk 150 ft (QC): 6 Gait Level of Assist: 6 Gait Assistive Device: FWW Stairs (FIM): 2 # of Steps: 4 1 Step (curb) (QC): 5 4 Steps (QC): 5 12 Steps (QC): 9 Stairs Level Of Assist: 5 Picking up an Object (QC): 5 PT Plan Treatment/Plan Treatment Plan: Continue Plan of Care Treatment Plan: Bed Mobility, Concurrent Therapy, Education, Functional Activity Mary, Functional Strength, Group Therapy, Gait, Safety, Therapeutic Exercise, Transfers Treatment Duration: Sep 10, 2019 Frequency: At least 5 of 7 days/Wk (IRF) Estimated Hrs Per Day: 1.5 hours per day Patient and/or Family Agrees t: Yes Safety Risks/Education Patient Education: Gait Training, Transfer Techniques, Correct Positioning, Disease Process, Safety Issues Teaching Recipient: Patient Teaching Methods: Demonstration, Discussion Response to Teaching: Verbalize Understanding, Return Demonstration, Reinforcement Needed Time/GCodes Time In: 1000 Time Out: 1100 Total Billed Treatment Time: 60 Total Billed Treatment 1,GT25m,FA35m ANTONETTE YOUNGBLOOD RACK PULLER Aug 22, 2019 10:57
--- NOTE | 2019-08-22 11:05 | NUR ---
Pastoral care visit.
[2019-08-22] MEDS: MAGNESIUM OXIDE (MAG-OX)400 MG TAB PO SCH (12:10)
[2019-08-22] MEDS: SIMvastatin 20 MG (ZOCOR) TAB PO SCH (12:10)
--- NOTE | 2019-08-22 13:18 | NUR ---
ASSESSMENT Pt was awake and pleasant during consult for MST score. Pt states current appetite is pretty good, though had been poor for the past 10 days. Pt states having some episodes of nausea, but no episodes of emesis. Pt states states issues with constipation and has been put on a bowel regimen here. Note last BM was documented 08/21. Pt states no recent weight changes. Note unable to determine recent weight hx, per chart review. Pt states DM management is good at home and that "my sugars run about [address] for malnutrition risk. Pt does not meet the criteria for malnutrition, per ASPEN guidelines. PES Statement: Inadequate oral intake related to loss of appetite / constipation as evidenced by patient interview. INTERVENTION: Continue with current diet order of regular diet. May modify to CHO-restricted diet if blood glucose levels elevate. Patient is at risk for malnutrition if po intake declines. Patient may benefit from nutritional supplementation if po intake declines. RD to follow-up if po intake declines. Goran Strong MS, RD [phone]
--- NOTE | 2019-08-22 14:01 | Physical Therapy Daily Note ---
PT Daily Note-Current Subjective Pt. agrees to Rx. Had lunch, wants to go to bathroom to change brief and pad Pain Location: No Pain Reported Mental Status Patient Orientation: Person, Place, Time, Situation Attachments: Oxygen (3L ext tube) Transfers Therapy Code Descriptions/Definitions Functional [place] Measure: 0=Not Assessed/NA 4=Minimal Assistance 1=Total Assistance 5=Supervision or Setup 2=Maximal Assistance 6=Modified [place] 3=Moderate Assistance 7=Complete [place] Therapy Quality Codes: 6 Independent with activity with or without an assistive device 5 Patient requires set up or clean up by helper. Patient completes activity by themselves 4 Supervision or touching assist (CGA). [place] provide cues , steadying assist 3 The helper provides less than half the effort to complete the activity 2 The helper provides more than half the effort to complete the activity 1 Dependent. The helper does all the effort to complete an activity 7 Patient refused to complete or attempt activity 9 The patient did not perform the activity before the current illness or injury 88 Not attempted due to Medical conditions or safety concerns in out bed and chair and on off toilet multiple trials all SBA to Mod I Gait Training Does the Patient Walk?: Yes Gait Assistive Device: FWW [id number] for practice and safety managing extended O2 tubing, pt. needs some cues for techniqe Exercises Seated Therapy Exercises: Ankle pumps, Sit to stand, Long arc quads, Hip flexion, Hip abd/add Seated Reps: 15 Treatments toileted for BM and change of brief all SBA Assessment Current Status: Good Progress PT Care Home Goals Care Home Goals PT Care Home Goals Time Frame: Sep 10, 2019 Transfers (B,C,W/C) (FIM): 6 Sit to Lying (QC): 6 Lying-Sitting on Side/Bed(QC): 6 Sit to Stand (QC): 6 Rollin Roll Left to Right (QC): 6 Chair/Kxe-yg-Oushd Xfer(QC): 6 Car Transfer (QC): 6 Does the Patient Walk: Yes Gait (FIM): 6 Gait distance (FIM): 3=150 ft Distance: 150' Walk 10 feet (QC): 6 Walk 10ft-Uneven Surface(QC): 6 Walk 50ft with 2 Turns (QC): 6 Walk 150 ft (QC): 6 Gait Level of Assist: 6 Gait Assistive Device: FWW Stairs (FIM): 2 # of Steps: 4 1 Step (curb) (QC): 5 4 Steps (QC): 5 12 Steps (QC): 9 Stairs Level Of Assist: 5 Picking up an Object (QC): 5 PT Plan Treatment/Plan Treatment Plan: Continue Plan of Care Treatment Plan: Bed Mobility, Concurrent Therapy, Education, Functional Activity Mary, Functional Strength, Group Therapy, Gait, Safety, Therapeutic Exercise, Transfers Treatment Duration: Sep 10, 2019 Frequency: At least 5 of 7 days/Wk (IRF) Estimated Hrs Per Day: 1.5 hours per day Patient and/or Family Agrees t: Yes Safety Risks/Education Patient Education: Gait Training, Transfer Techniques, Correct Positioning, Disease Process, Safety Issues Teaching Recipient: Patient Teaching Methods: Demonstration, Discussion Response to Teaching: Verbalize Understanding, Return Demonstration, Reinforcement Needed Time/GCodes Time In: 1330 Time Out: 1400 Total Billed Treatment Time: 30 Total Billed Treatment 1,GT30m ANTONETTE YOUNGBLOOD EDUCATION PROGRAM COORDINATOR Aug 22, 2019 14:01
[2019-08-22 15:58] VITALS: BP 99/63
--- NOTE | 2019-08-22 15:59 | ST Cognitive Linguistic Eval ---
Speech Evaluation-General Medical Diagnosis CHF myopathy Onset Date: Aug 19, 2019 Therapy Diagnosis Therapy Diagnosis: Cognitive-communication Precautions Precautions: Fall Precautions/Isolations: Fall Prevention, Standard Precautions Referral Referring Physician: Dr. Wilde Reason for Referral: Evaluation/Treatment Medical History Pertinent Medical History: Arthritis, COPD, CVA (39 years ago), DM, GERD, Heart Failure, HTN, Renal Insufficiency, Rheumatoid Arthritis Arthritis, COPD, CVA, DM, GERD, Heart Failure, HTN, Renal Insufficiency, RA Current History CHF Myopathy Reviewed History: Yes Social History Home: Single Level Current Living Status: Alone Speech PLF-Current Status Prior Level of Function Patient lives alone where she is able to meet most of her daily needs. She has family who assist her as needed. Subjective The patient was resting in her bed when I entered her room. Language Eval: Auditory Comprehends Simple Yes/No Ques: Functional Indent/Objects Multiple Law: Functional Ident/Pics in Multiple Law: Functional Follows 1-Step Commands: Functional Follows Complex Directions: Mild Follows General Conversations: Functional Language Eval: Verbal Language Completes Spontaneous Greeting: Functional Produces Auto, Serial Info: Functional Imitates Simple Words/Phrases: Functional Word Finding: Functional Requests Basic Needs: Functional States Basic Personal Info: Functional Expresses Complex Ideas: Mild Objective Cognitive Domain Attention: Mild Memory: Mild Problem Solving: Mild Executive Functions: Mild Visuospatial Skills: WNL Composite Severity Rating: Mild Clock Drawing Severity Rating: Mild Objective Formal/Standardized Tests [facility] Status ([facility]) Results /30, within Mild Neurocognitive Disorder Oral Motor/Speech Production Within Functional Limits Impression Patient is a 79 year old woman who was admitted to the ARU for CHF and myopathy. The patient appears to be very needy. She was given the SLUMS with a score of 23/30. The patient has cognitive deficits related to memory, problem solving and safety awareness. The patient is noted to get off task easily which often requires redirection. She will receive cognitive therapy with guarded improvement anticipated. Communication/Social Cognition Comprehension: 5 Expression: 5 Social Interaction: 4 Problem Solvin Memory: 5 Speech Patient Assess Expression of Ideas/Wants: Exhibits (3) Understanding Verbal Content: Usually Understands (3) Brief Interview-Mental Status: Yes Repetition of Three Words: Three (3) Temporal Orientation: Year: Correct (3) Temporal Orientation: Month: Accurate within 5 days(2) Temporal Orientation: Day: Correct (1) Recall : Wear to say "Sock": Yes,after cueing (1) Recall : Color: No, could not recall (0) Recall : Bed: Yes,after cueing (1) Memory/Recall Ability: Current season, That he or she is in a hsp/hsp unit Speech Short Term Goals Short Term Goals Short Term Goals 1) Patient will completed memory tasks related to her daily needs at 80% with minimal cues. 2) Patient will completed problem solving tasks related to her daily needs at 80% with minimal cues. 3) Patient will completed safety awareness tasks related to her daily needs at 80% with minimal cues. Speech Cottage Supervisor Goals Cottage Supervisor Goals Patient will improve cognitive-communication necessary for safety and daily living tasks with minimal assist. Speech-Plan Patient/Family Goals Patient/Family Goals: Patient plans on returning to her home alone. Treatment Plan Speech Therapy Treatment Plan: Continue Plan of Care Patient will receive skilled ST services for cognitive function. Treatment Duration: Aug 29, 2019 Frequency: 5 times per week Estimated Hrs Per Day: .5 hour per day Rehab Potential: Good Barriers to Learning: Patient has mild cognitive deficits Pt/Family Agrees to Plan: Yes Safety Risks/Education Teaching Recipient: Patient Teaching Methods: Discussion Response to Teaching: Verbalize Understanding Education Topics Provided: Safety within her room. Time Speech Therapy Time In: 15:30 Speech Therapy Time Out: 15:45 Total Billed Time: 15 Billed Treatment Time 1, GEORGE Del Valle Aug 22, 2019 15:59
--- NOTE | 2019-08-22 15:59 | NUR ---
Initial Assessment Met with patient to complete initial assessment. Patient admitted to ARU on 08/19/19 from [facility] with diagnosis of CHF myopathy. Prior to hospitalization the patient was living alone in an apartment in [place], [place]. She has 32.5 hours of in-home assistance each week. She required some assistance with self care/ADLs and was independent with indoor mobility, utilizing a walker and manual wheelchair. She also reports having several canes at home, which she no longer uses. She wears continuous supplemental oxygen at 3L via nasal cannula and uses a CPAP at night. She also reports having a toilet riser at home. She identified LARRY García as her primary care provider and [facility] in [place], [place] as her preferred pharmacy. She identified her daughter, Shrei Manzo, as her primary contact. Sheri can be reached at (home) [phone] or (cell) [phone]. Patient confirmed primary insurance as Medicare with [facility] secondary. The purpose of the weekly team conference was discussed and patient verbalized understanding.
[2019-08-22] MEDS: GLIMEPIRIDE 4 MG (AMARYL) TAB PO SCH ×2 (17:59→18:01)
[2019-08-22] MEDS: RT-ALBUTEROL SULF 2.5 MG/3 ML PRE-MIX VIAL INH PRN (19:30)
[2019-08-22] MEDS: NITROFURANTOIN 100 MG (MACROBID) CAPSULE PO SCH (21:12)
[2019-08-22] MEDS: MELATONIN 3 MG TABLET PO PRN (21:13)
--- NOTE | 2019-08-22 21:32 | NUR ---
patient refused levemir this evening stating she doesn't want her blood sugar to get too low and its already at 160. Educated patient we can give with a snack, and it is a long acting medication and lowers her blood sugar slowly. She stated her blood sugars have already been too low, she prefers them to be at 200. Educated patient on normal blood sugar levels. Patient still refused medication.
[2019-08-23 06:00] VITALS: BP 101/59
[2019-08-23] MEDS: ALPRAZolam 0.5 MG (XANAX) TAB PO PRN ×3 (06:46→19:00)
[2019-08-23] MEDS: BUMETANIDE 1 MG (BUMEX) TAB PO SCH ×2 (06:46→17:44)
[2019-08-23] MEDS: inSUlin ASPART (NovoLOG) 1 UNIT/0.01 ML (CHARGE PER UNIT) SC SCH ×3 (06:48→17:43)
--- NOTE | 2019-08-23 08:08 | Cardiology Progress Note ---
Subjective Date Seen by Provider: Aug 23, 2019 Time Seen by Provider: 08:06 Subjective/Events-last exam Patient is sitting up in bed, c/o constipation. Denies any chest pain or in creased dyspnea. Review of Systems General: No Chills, No Night Sweats; Fatigue, Malaise; No Appetite, No Other HEENT: No Head Aches, No Visual Changes, No Eye Pain, No Ear Pain, No Dysphasia, No Sinus Congestion, No Post Nasal Drip, No Sore Throat, No Other Pulmonary: Dyspnea; No Cough, No Pleuritic Chest Pain, No Other Cardiovascular: No: Chest Pain, Palpitations, Orthopnea, Paroxysmal Noc. Dyspnea, Edema, Lt Headedness, Other Gastrointestinal: Constipation Objective-Cardiology Exam Last Set of Vital Signs Vital Signs 08/23/19 08/23/19 06:00 07:26 Temp 35.6 Pulse 89 Resp 20 B/P (MAP) 101/59 (73) Pulse Ox 97 O2 Delivery Nasal Cannula O2 Flow Rate 2.00 Capillary Refill : I&O Intake and Output 08/23/19 00:00 Intake Total 900 ml Balance 900 ml Intake Oral 900 ml # Voids 5 General: Alert, Oriented X3, Cooperative HEENT: Atraumatic, PERRLA Neck: Supple, No JVD, No Thyromegaly Lungs: Normal Air Movement Heart: Regular Rate, Normal S1, Normal S2, No Murmurs, Other (systolic murmur at the left sternal border) Abdomen: Normal Bowel Sounds, Soft, No Tenderness, No Hepatosplenomegaly, No Masses Extremities: No Clubbing, No Cyanosis, No Edema, Normal Pulses, No Tenderness/Swelling Skin: No Rashes, No Breakdown, No Significant Lesion Neuro: Normal Gait, Normal Speech, Strength at 5/5 X4 Ext, Normal Tone, Sensation Intact Psych/Mental Status: Mental Status NL, Mood NL Results Lab A/P-Cardiology Admission Diagnosis Critical aortic valve stenosis Congestive heart failure, acute on chronic left ventricular systolic dysfunction, nonischemic cardiomyopathy Hypertension Hyperlipidemia Assessment/Plan Critical aortic valve stenosis status post balloon valvuloplasty, has been following with Dr. Del Toro, continue to monitor. Will need valve replacement surgery in the near future. Congestive heart failure, severe cardiomyopathy nonischemic, acute on chronic left ventricular systolic dysfunction, secondary to valvular heart disease. Reported ejection fraction 25 percent Hypotension secondary to medication, blood pressure better this morning. Continue on current medication with parameter to hold blood pressure medication if systolic below 90. Hyperlipidemia, monitor lipids Reported history of CVA in the past History of intolerance to TUSHAR inhibitor with cough. Diabetes mellitus Anxiety. Debility Clinical Quality Measures DVT/VTE Risk/Contraindication: Risk Factor Score Per Nursin RFS Level Per Nursing on Admit: 4+=Very High Supervisory-Addendum Brief Supervisory Addendum Participated in pt care: history, MDM, physical Personally performed: exam, history, MDM Care discussed with: MADAI Notes: Patient was seen and evaluated Complain of constipation, generalized fatigue Discussed the need for her valve replacement Examination has systolic murmur, lungs were clear. Continue current medication and monitor heart rate and blood pressure ANJANA CAT Aug 23, 2019 08:08 CAYETANO AGUIAR MD Aug 23, 2019 08:23
--- NOTE | 2019-08-23 09:41 | Occupational Ther Daily Note ---
OT Current Status-Daily Note Subjective Pt in bed, agrees to therapy. Pt concerned throughout treatment with having a bowel movement. Mental Status/Objective Therapy Code Descriptions/Definitions Functional [place] Measure: 0=Not Assessed/NA 4=Minimal Assistance 1=Total Assistance 5=Supervision or Setup 2=Maximal Assistance 6=Modified [place] 3=Moderate Assistance 7=Complete [place] Attachments: Oxygen ADL-Treatment Pt supine to sit with supervision. Sit to stand with SBA. Gait to restroom with FWW. Pt transferred to [facility] over toilet with SBA. Pt had medium sized BM and required minimal assistance for thorough toileting hygiene. Pt requires encouragement to attempt hygiene before requesting assist in order to increase independence. Transfer to walk in shower with SBA using grab bar for safety. Doffed gown without assist. Pt doffed right sock without assist, but required assist to doff left sock. Seated bathing completed using hand held shower. Upper body bathing completed with SBA. Pt stood with supervision to wash buttocks and [place] area. Pt able to wash bilateral upper legs, but required assist to wash/dry lower legs and feet. While in the shower pt stood and had BM. Required min assist to complete hygiene. Pt then transferred back to [facility] over toilet. Min assist for toileting hygiene. Pt required assist to thread bilateral LE into Depends. Max assist overall to don Depends. Pt donned pullover gown with set up. Pt combed hair with set up. Increased time required for all ADL tasks. Therapy Code Descriptions/Definitions Functional [place] Measure: 0=Not Assessed/NA 4=Minimal Assistance 1=Total Assistance 5=Supervision or Setup 2=Maximal Assistance 6=Modified [place] 3=Moderate Assistance 7=Complete [place] Therapy Quality Codes: 6 Independent with activity with or without an assistive device 5 Patient requires set up or clean up by helper. Patient completes activity by themselves 4 Supervision or touching assist (CGA). [place] provide cues , steadying assist 3 The helper provides less than half the effort to complete the activity 2 The helper provides more than half the effort to complete the activity 1 Dependent. The helper does all the effort to complete an activity 7 Patient refused to complete or attempt activity 9 The patient did not perform the activity before the current illness or injury 88 Not attempted due to Medical conditions or safety concerns Grooming (FIM): 5 Bathing (FIM): 4 Shower/Bathe Self (QC): 3 Upper Body (FIM): 5 Upper Body Dressing (QC): 5 Lower Body Dressing (FIM): 2 Lower Body Dressing (QC): 2 Toileting (FIM): 4 Toileting Hygiene (QC): 3 Toilet/Commode Transfer (FIM): 5 Toilet Transfer (QC): 4 Shower Transfer(FIM): 5 Other Treatment Pt completed bilateral UE AROM exercises x10 reps at all joints to increase strength needed for ADLs and transfers. Rest breaks between exercises. Bilateral hand fish dressing machine feeder exercises x20 reps with moderate resistance therapy foam to increase fish dressing machine feeder strength for functional tasks. Pt sitting in w/c with needs met after session. OT Short Term Goals Short Term Goals Time Frame: Aug 27, 2019 Grooming(FIM): 5 (met) Toileting(FIM): 4 (met) Toilet/Commode Transfer(FIM): 5 (met) Additional Short Term Goals: 1-Demonstrate ADL Tasks, 2-Verbalize Understanding, 3-ImproveStrength/Mary 1=Demonstrate adherence to instructed precautions during ADL tasks. 2=Patient will verbalize/demonstrate understanding of assistive devices/modifications for ADL. 3=Patient will improve strength/tolerance for activity to enable patient to perform ADL's. OT Chcf Goals Chcf Goals Time Frame: Sep 03, 2019 Eating (FIM): 6 (met) Eating (QC): 6 (met) Groomin Oral Hygiene (QC): 6 Bathing(FIM): 5 Shower/Bathe Self (QC): 5 Upper Body Dressing(FIM): 6 Upper Body Dressing (QC): 6 Lower Body Dressing(FIM): 6 Lower Body Dressing (QC): 6 On/Off Footwear (QC): 6 Toileting(FIM): 6 Toileting Hygiene (QC): 6 Toilet/Commode Transfer(FIM): 6 Toilet/Commode Transfer (QC): 6 Shower Transfer(FIM): 6 Additional Goals: 1-Demonstrate ADL Tasks, 2-Verbalize Understanding, 3-ImproveStrength/Mary 1=Demonstrate adherence to instructed precautions during ADL tasks. 2=Patient will verbalize/demonstrate understanding of assistive devices/modifications for ADL. 3=Patient will improve strength/tolerance for activity to enable patient to perform ADL's. OT Education/Plan Problem List/Assessment Pt would benefit from skilled OT to increase her independence in basic self care to allow her to safely return home to live alone after hospitalization. Discharge Recommendations Plan/Recommendations: Continue POC Treatment Plan/Plan of Care Patient would benefit from OT for education, treatment and training to promote independence in ADL's, mobility, safety and/or upper extremity function for ADL's. Plan of Care: ADL Retraining, Functional Mobility, Group Exercise/Act as Ind (education, exercise, socialization, funct mobility, activity tolerance), UE Funct Exercise/Act, UE Neuromus Re-Ed/Coord, W/C Management Training, OTHER (energy conservation education) Treatment Duration: Sep 03, 2019 Frequency: At least 5 of 7 days/Wk (IRF) Estimated Hrs Per Day: Other Agreement: Yes Rehab Potential: Good Time/GCodes Start Time: 08:00 Stop Time: 09:30 Total Time Billed (hr/min): 90 Billed Treatment Time 1 visit, ADLx5(75minutes), EX(15minutes) TRISTEN TREJO OT Aug 23, 2019 09:41
--- NOTE | 2019-08-23 10:01 | PM&R Progress Note ---
Subjective HPI/CC On Admission Date Seen by Provider: Aug 23, 2019 Time Seen by Provider: 09:00 Chief complaint: Myopathy with debility History of present illness: This is a 79-year-old white female clinic patient of Kalee Harvey in [facility] who has a past medical history of diabetes mellitus and hypertension with valvular heart disease who presents following a 10 day hospital stay at [facility] when she was admitted there for congestive heart failure found to have ejection fraction of 25 percent. She was having shortness of breath and continued to have shortness of breath since that time and further evaluation showed severe aortic stenosis. She was treated for congestive heart failure in preparation for a TVAR in the future but managing her volume status was difficulty so a valvuloplasty was required and significantly improved her status she began breathing better and the pulmonary edema on chest x-ray was much improved. Her creatinine remained normal at 1.0. She did have mild anemia and that was monitor closely along with glucose monitoring. Dr. Luiz Pastor is her primary talent acquisition manager. She will see cardiovascular surgeon Dr. Buckner and 32 days to arrange for scheduling the TVAR. Currently patient is very upset that she has not received her alprazolam benzodiazepine for her anxiety she does not appear to be terribly anxious but will try to reassure her with a warm blanket while her home medications are being put in the computer in order to restart. Appreciate Dr. Bansal in consultation also. Subjective/Events-last exam Discharge is planned soon. BM while in shower today so she really doesn't think she needs a tap water enema as she had requested. Working diligently and back to her baseline so discharge soon. Oxygen order implemented since she does take that at home. Check meds and labs Reviewed therapy notes Conferred with cooker sulfate of Systems General: Fatigue Gastrointestinal: Nausea, Constipation Musculoskeletal: back pain Objective Exam Vital Signs Vital Signs Date Time Temp Pulse Resp B/P (MAP) Pulse Ox O2 Delivery O2 Flow Rate FiO2 08/23/19 18:19 99 Nasal Cannula 2.00 08/23/19 17:22 36.4 89 18 106/69 (81) Capillary Refill : General Appearance: No Apparent Distress, WD/WN, Chronically ill, Obese HEENT: PERRL/EOMI, Normal ENT Inspection, Pharynx Normal, Moist Mucous Membranes Neck: Full Range of Motion, Normal Inspection, Non Tender, Supple Respiratory: Chest Non Tender, Lungs Clear, Normal Breath Sounds, No Accessory Muscle Use, No Respiratory Distress, Decreased Breath Sounds Cardiovascular: No Edema, No Gallop, No JVD, Bradycardia, Systolic Murmur, Irregularly Irregular Gastrointestinal: Normal Bowel Sounds, No Organomegaly, No Pulsatile Mass, Non Tender, Soft Back: Normal Inspection, No CVA Tenderness, No Vertebral Tenderness Extremity: Normal Capillary Refill, Normal Inspection, Normal Range of Motion, Non Tender, No Calf Tenderness, Pedal Edema Neurologic/Psychiatric: Alert, Oriented x3, No Motor/Sensory Deficits, Normal Mood/Affect, campus security director II-XII Norm as Tested, Motor Weakness (generalized in arms and legs upper and lower) Skin: Normal Color, Warm/Dry Lymphatic: No Adenopathy Results/Procedures Lab Patient resulted labs reviewed. FIM Transfers Therapy Code Descriptions/Definitions Functional [place] Measure: 0=Not Assessed/NA 4=Minimal Assistance 1=Total Assistance 5=Supervision or Setup 2=Maximal Assistance 6=Modified [place] 3=Moderate Assistance 7=Complete [place] Therapy Quality Codes: 6 Independent with activity with or without an assistive device 5 Patient requires set up or clean up by helper. Patient completes activity by themselves 4 Supervision or touching assist (CGA). [place] provide cues , steadying assist 3 The helper provides less than half the effort to complete the activity 2 The helper provides more than half the effort to complete the activity 1 Dependent. The helper does all the effort to complete an activity 7 Patient refused to complete or attempt activity 9 The patient did not perform the activity before the current illness or injury 88 Not attempted due to Medical conditions or safety concerns Transfers (B, C, W/C) (FIM): 5 Scootin Rollin Roll Left to Right (QC): 5 Supine to/from Sit: 5 Sit to/from Stand: 5 Sit to Lying (QC): 5 Sit to Stand (QC): 5 Chair/Sdb-sf-Bhxnu Xfer(QC): 5 Bed to/from Chair: 5 Car Transfer (QC): 5 Gait Training Does the Patient Walk?: Yes Gait (FIM): 5 Distance (FIM): 3=150 ft (150,75x2) Walk 10 feet (QC): 5 Walk 50 ft with 2 Turns(QC): 5 Walk 150 ft (QC): 5 Walking 10ft/uneven surface-QC: 5 Gait Level of Assist: 5 Gait Persons Needed: 1 Gait Assistive Device: FWW Stair Training Stairs (FIM): 2 #of Steps: 2 1 Step (curb) (QC): 4 4 Steps (QC): 88 12 Steps (QC): 9 Level of Assist: 4 Mental Status/Objective Comprehension: 5 Expression: 5 Social Interaction: 4 Problem Solvin Memory: 5 ADL-Treatment Feedin Eating (QC): 6 Groomin Bathin Bathing Location: L Arm, R Arm, L Upper Leg, R Upper Leg, Chest, Abdomen, Buttocks, Perineal Area Shower/Bathe Self (QC): 3 Upper Extremity Dressin Upper Body Dressing (QC): 5 Lower Extremity Dressin Lower Body Dressing (QC): 2 On/Off Footwear (QC): 2 (Pt able to open packaging, able to direct care. Pt requires threading of BLE, able to lift feet off floor. Pt states her caregivers assist with socks if she wears them, pt states she never wears socks at home.) Toiletin Toileting Hygiene (QC): 3 Toilet/Commode Transfer: 5 Toilet Transfer (QC): 4 Tub: 5 (SBA, use of FWW and grab bars.) Shower: 5 Assessment/Plan Assessment and Plan Assess & Plan/Chief Complaint Assessment: Myopathy Debility Congestive heart failure 25 percent ejection fraction line severe aortic stenosis status post valvuloplasty temporarily in preparation for TVAR at [facility] Diabetes mellitus Osteoarthritis Anxiety Sleep apnea Depression Hypokalemia Plan: Continue home meds anxiolytics Pain medication Appreciate Dr. Bansal Reviewed labs Mattress change per patient request DC home soon BM regimen (1) Myopathy Status: Acute (2) Congestive heart failure Status: Acute Qualifiers: Heart failure type: systolic Heart failure chronicity: acute on chronic Qualified Codes: I50.23 - Acute on chronic systolic (congestive) heart failure (3) CAD (coronary artery disease) Status: Chronic Qualifiers: Coronary Disease-Associated Artery/Lesion type: [place] artery [place] vs. transplanted heart: [place] heart Associated angina: without angina Qualified Codes: I25.10 - Atherosclerotic heart disease of [place] coronary artery without angina pectoris (4) Diabetes mellitus Status: Chronic Qualifiers: Diabetes mellitus type: type 2 Diabetes mellitus detention insulin use: without detention use Diabetes mellitus complication status: with other specified complication Qualified Codes: E11.69 - Type 2 diabetes mellitus with other specified complication (5) Morbid obesity Status: Chronic (6) Sleep apnea Status: Chronic Qualifiers: Sleep apnea type: unspecified type Qualified Codes: G47.30 - Sleep apnea, unspecified (7) Anemia Status: Chronic Qualifiers: Anemia type: unspecified type Qualified Codes: D64.9 - Anemia, unspecified (8) Elevated brain natriuretic peptide (BNP) level Status: Chronic (9) Aortic stenosis Status: Chronic Qualifiers: Cardiac valve disease etiology: etiology unspecified Qualified Codes: I35.0 - Nonrheumatic aortic (valve) stenosis (10) Anxiety Status: Chronic (11) Depression Status: Chronic Qualifiers: Depression Type: unspecified Qualified Codes: F32.9 - Major depressive disorder, single episode, unspecified (12) Multiple sclerosis Status: Chronic MALLORY TUCKER DO Aug 23, 2019 10:01
--- NOTE | 2019-08-23 10:15 | Speech Therapy Daily Note ---
Speech Daily Progress Note Subjective Date Seen by Provider: Aug 23, 2019 Time Seen by Provider: 00:30 The patient was resting in her wheelchair following her OT session. Objective Patient completed memory tasks related to her daily needs at 80% with moderate cues and/or repetitions. Assessment Assessment Current Status: Good Progress Treatment Plan Continue Plan of Care Communication Comprehension: 5 Expression: 5 Social Cognition Social Interaction: 4 Problem Solvin Memory: 5 Speech Short Term Goals Short Term Goals Short Term Goals 1) Patient will completed memory tasks related to her daily needs at 80% with minimal cues. 2) Patient will completed problem solving tasks related to her daily needs at 80% with minimal cues. 3) Patient will completed safety awareness tasks related to her daily needs at 80% with minimal cues. Speech Ship Erector Goals Snf Goals Patient will improve cognitive-communication necessary for safety and daily living tasks with minimal assist. Speech-Plan Patient/Family Goals Patient/Family Goals: The patient plans on returning home with home health and family support post rehab. Treatment Plan Speech Therapy Treatment Plan: Continue Plan of Care The patient was more alert and pleasant today. Treatment Duration: Aug 29, 2019 Frequency: 5 times per week Estimated Hrs Per Day: .5 hour per day Rehab Potential: Good Barriers to Learning: Patient has mild cognitive deficits. Pt/Family Agrees to Plan: Yes Safety Risks/Education Teaching Recipient: Patient Teaching Methods: Demonstration, Discussion Response to Teaching: Verbalize Understanding, Return Demonstration Education Topics Provided: Continued safety within her room and communication of wants/needs. Time Speech Therapy Time In: 09:30 Speech Therapy Time Out: 10:00 Total Billed Time: 30 Billed Treatment Time 1VIVEK [address] Aug 23, 2019 10:15
[2019-08-23] MEDS: SPIRONOLACTONE 25 MG (ALDACTONE) TAB PO SCH (10:42)
[2019-08-23] MEDS: LOSARTAN 25 MG (COZAAR) TAB PO SCH (10:42)
[2019-08-23] MEDS: KCL 10 MEQ TAB (MICRO K) PO SCH (10:42)
[2019-08-23] MEDS: guaiFENesin/DM (ROBITUSSIN DM) 10 ML UDC PO SCH ×3 (10:43→21:17)
[2019-08-23] MEDS: SENNA W/DOCUSATE (SENOKOT S) TABLET PO SCH ×2 (10:49→21:17)
--- NOTE | 2019-08-23 11:04 | Physical Therapy Daily Note ---
PT Daily Note-Current Subjective Pt. agrees to Rx. States she had success having a BM today but is still fearful she will have an accident on the floor walking. This EDITOR NEWSPAPER assures her she will be taken care of and all will be well. Pain Location: No Pain Reported Mental Status Patient Orientation: Person, Place, Time, Situation Transfers Therapy Code Descriptions/Definitions Functional [place] Measure: 0=Not Assessed/NA 4=Minimal Assistance 1=Total Assistance 5=Supervision or Setup 2=Maximal Assistance 6=Modified [place] 3=Moderate Assistance 7=Complete [place] Therapy Quality Codes: 6 Independent with activity with or without an assistive device 5 Patient requires set up or clean up by helper. Patient completes activity by themselves 4 Supervision or touching assist (CGA). [place] provide cues , steadying assist 3 The helper provides less than half the effort to complete the activity 2 The helper provides more than half the effort to complete the activity 1 Dependent. The helper does all the effort to complete an activity 7 Patient refused to complete or attempt activity 9 The patient did not perform the activity before the current illness or injury 88 Not attempted due to Medical conditions or safety concerns Transfers (B, C, W/C) (FIM): 5 Scootin Rollin Supine to/from Sit: 5 Sit to/from Stand: 6 Bed to/from Chair: 5 Gait Training Does the Patient Walk?: Yes Gait (FIM): 5 Distance (FIM): 3=150 ft (x3) Gait Level of Assist: 5 Gait Persons Needed: 1 Gait Assistive Device: FWW slow, heavy wt bearing on UEs Stair Training declines trial of stairs Exercises Supine Ex: Bridging, Ankle pumps, Quad Set, Rolling, Glut sets, Heel Slides (assist left initially), Short Arc Quads, Scooting, Straight leg raise, Hip abd/add Supine Reps: 15 NuStep Minutes: 8 NuStep Workload: 2 Assessment Current Status: Good Progress O2 sats steady at 99% on 2L O2 PT Residential Goals Residential Goals PT Residential Goals Time Frame: Sep 10, 2019 Transfers (B,C,W/C) (FIM): 6 Sit to Lying (QC): 6 Lying-Sitting on Side/Bed(QC): 6 Sit to Stand (QC): 6 Rollin Roll Left to Right (QC): 6 Chair/Atg-tc-Nhidn Xfer(QC): 6 Car Transfer (QC): 6 Does the Patient Walk: Yes Gait (FIM): 6 Gait distance (FIM): 3=150 ft Distance: 150' Walk 10 feet (QC): 6 Walk 10ft-Uneven Surface(QC): 6 Walk 50ft with 2 Turns (QC): 6 Walk 150 ft (QC): 6 Gait Level of Assist: 6 Gait Assistive Device: FWW Stairs (FIM): 2 # of Steps: 4 1 Step (curb) (QC): 5 4 Steps (QC): 5 12 Steps (QC): 9 Stairs Level Of Assist: 5 Picking up an Object (QC): 5 PT Plan Treatment/Plan Treatment Plan: Continue Plan of Care Treatment Plan: Bed Mobility, Concurrent Therapy, Education, Functional Activity Mary, Functional Strength, Group Therapy, Gait, Safety, Therapeutic Exercise, Transfers Treatment Duration: Sep 10, 2019 Frequency: At least 5 of 7 days/Wk (IRF) Estimated Hrs Per Day: 1.5 hours per day Patient and/or Family Agrees t: Yes Safety Risks/Education Patient Education: Gait Training, Transfer Techniques, Correct Positioning, Disease Process, Safety Issues Teaching Recipient: Patient Teaching Methods: Demonstration, Discussion Response to Teaching: Verbalize Understanding, Return Demonstration, Reinforcement Needed Time/GCodes Time In: 1000 Time Out: 1100 Total Billed Treatment Time: 60 Total Billed Treatment 1,EX20m,FA25m,GT15m ANTONETTE YOUNGBLOOD EDITOR NEWSPAPER Aug 23, 2019 11:04
[2019-08-23] MEDS: MAGNESIUM OXIDE (MAG-OX)400 MG TAB PO SCH (12:16)
[2019-08-23] MEDS: SIMvastatin 20 MG (ZOCOR) TAB PO SCH (12:21)
[2019-08-23] MEDS: CYCLOBENZAPRINE 10 MG (FLEXERIL) TAB PO PRN ×2 (12:21→21:20)
--- NOTE | 2019-08-23 13:05 | Physical Therapy Daily Note ---
PT Daily Note-Current Subjective Patient has no c/o at this time and agrees to PT. Pain Numeric Pain Scale: 0-No Pain Location: No Pain Reported Mental Status Patient Orientation: Normal For Age Attachments: Oxygen Transfers Therapy Code Descriptions/Definitions Functional [place] Measure: 0=Not Assessed/NA 4=Minimal Assistance 1=Total Assistance 5=Supervision or Setup 2=Maximal Assistance 6=Modified [place] 3=Moderate Assistance 7=Complete [place] Therapy Quality Codes: 6 Independent with activity with or without an assistive device 5 Patient requires set up or clean up by helper. Patient completes activity by themselves 4 Supervision or touching assist (CGA). [place] provide cues , steadying assist 3 The helper provides less than half the effort to complete the activity 2 The helper provides more than half the effort to complete the activity 1 Dependent. The helper does all the effort to complete an activity 7 Patient refused to complete or attempt activity 9 The patient did not perform the activity before the current illness or injury 88 Not attempted due to Medical conditions or safety concerns Transfers (B, C, W/C) (FIM): 6 Scootin Rollin Roll Left to Right (QC): 6 Supine to/from Sit: 6 Sit to/from Stand: 6 Sit to Lying (QC): 6 Sit to Stand (QC): 6 Chair/Msz-rm-Srazn Xfer(QC): 6 Bed to/from Chair: 6 Gait Training Does the Patient Walk?: Yes Gait (FIM): 6 Distance (FIM): 3=150 ft Distance: 200' x 2 Walk 10 feet (QC): 6 Walk 50 ft with 2 Turns(QC): 6 Walk 150 ft (QC): 6 Gait Level of Assist: 6 Gait Assistive Device: FWW steady, functional gait sequence with FWW/no deviation Assessment Patient requires 1 recovery period due to slight fatigue with activity. Patient returned to room and in bed with needs met. From a PT standpoint, patient is safe to return to home with caregivers and home health intervention. PT Forming Roll Operator Goals Jail Goals PT Jail Goals Time Frame: Sep 10, 2019 Transfers (B,C,W/C) (FIM): 6 Sit to Lying (QC): 6 Lying-Sitting on Side/Bed(QC): 6 Sit to Stand (QC): 6 Rollin Roll Left to Right (QC): 6 Chair/Zsd-tw-Wxstr Xfer(QC): 6 Car Transfer (QC): 6 Does the Patient Walk: Yes Gait (FIM): 6 Gait distance (FIM): 3=150 ft Distance: 150' Walk 10 feet (QC): 6 Walk 10ft-Uneven Surface(QC): 6 Walk 50ft with 2 Turns (QC): 6 Walk 150 ft (QC): 6 Gait Level of Assist: 6 Gait Assistive Device: FWW Stairs (FIM): 2 # of Steps: 4 1 Step (curb) (QC): 5 4 Steps (QC): 5 12 Steps (QC): 9 Stairs Level Of Assist: 5 Picking up an Object (QC): 5 PT Plan Treatment/Plan Treatment Plan: Continue Plan of Care Treatment Plan: Bed Mobility, Concurrent Therapy, Education, Functional Ac tivity Mary, Functional Strength, Group Therapy, Gait, Safety, Therapeutic Exercise, Transfers Treatment Duration: Sep 10, 2019 Frequency: At least 5 of 7 days/Wk (IRF) Estimated Hrs Per Day: 1.5 hours per day Patient and/or Family Agrees t: Yes Time/GCodes Time In: 1245 Time Out: 1300 Total Billed Treatment Time: 15 Total Billed Treatment 1 visit FA 15 min FEDERICO HANKINS PT Aug 23, 2019 13:05
--- NOTE | 2019-08-23 15:23 | NUR ---
Met with patient briefly. Patient reports feeling tired today. She states she ambulated twice with PT and did some exercises which may have caused increased fatigue. Provided encouragement to patient. Reminded patient of weekly team conference tomorrow and that this worker would discuss the team's recommendations tomorrow after the meeting. Patient verbalizes understanding.
[2019-08-23 17:22] VITALS: BP 106/69
[2019-08-23] MEDS: GLIMEPIRIDE 4 MG (AMARYL) TAB PO SCH (17:33)
[2019-08-23] MEDS: RT-ALBUTEROL SULF 2.5 MG/3 ML PRE-MIX VIAL INH PRN (18:19)
[2019-08-23] MEDS: NITROFURANTOIN 100 MG (MACROBID) CAPSULE PO SCH (21:16)
[2019-08-23] MEDS: DOCUSATE SODIUM 100 MG (COLACE) CAP PO PRN (21:20)
[2019-08-24 05:15] VITALS: BP 109/62
[2019-08-24] MEDS: BUMETANIDE 1 MG (BUMEX) TAB PO SCH ×2 (06:27→18:20)
[2019-08-24] MEDS: inSUlin ASPART (NovoLOG) 1 UNIT/0.01 ML (CHARGE PER UNIT) SC SCH ×3 (06:59→16:28)
[2019-08-24] MEDS: RT-ALBUTEROL SULF 2.5 MG/3 ML PRE-MIX VIAL INH PRN ×2 (07:22→20:52)
--- NOTE | 2019-08-24 08:00 | NUR ---
STATES SLEPT BETTER. COMPLAIN TAILBONE PAIN. SACRUM IS RED, BUT NO BREAKDOWN. ZINC USED PRN. IS ABLE TO DO OWN REY CARE. DR. TUCKER AWARE THAT PATIENT IS REFUSING INSULIN AND TELLING NURSE HOW MUCH NOVOLOG TO GIVE EACH TIME. VERY NEEDY AND REQUESTS NURSE TO BE IN ROOM FREQUENTLY.
[2019-08-24] MEDS: LOSARTAN 25 MG (COZAAR) TAB PO SCH (08:41)
[2019-08-24] MEDS: SENNA W/DOCUSATE (SENOKOT S) TABLET PO SCH ×2 (08:41→20:19)
[2019-08-24] MEDS: SPIRONOLACTONE 25 MG (ALDACTONE) TAB PO SCH (08:41)
[2019-08-24] MEDS: ALPRAZolam 0.5 MG (XANAX) TAB PO PRN ×3 (08:41→18:20)
[2019-08-24] MEDS: guaiFENesin/DM (ROBITUSSIN DM) 10 ML UDC PO SCH ×3 (08:42→20:19)
--- NOTE | 2019-08-24 08:44 | Cardiology Progress Note ---
Subjective Date Seen by Provider: Aug 24, 2019 Time Seen by Provider: 08:42 Subjective/Events-last exam Patient is sitting up in chair, no new complaints. Denies any chest pain or increased dyspnea. Review of Systems General: No Chills, No Night Sweats; Fatigue; No Malaise, No Appetite, No Other HEENT: No Head Aches, No Visual Changes, No Eye Pain, No Ear Pain, No Dysphasia, No Sinus Congestion, No Post Nasal Drip, No Sore Throat, No Other Pulmonary: Dyspnea; No Cough, No Pleuritic Chest Pain, No Other Cardiovascular: No: Chest Pain, Palpitations, Orthopnea, Paroxysmal Noc. Dyspnea, Edema, Lt Headedness, Other Objective-Cardiology Exam Last Set of Vital Signs Vital Signs 08/24/19 08/24/19 08/24/19 05:15 07:17 09:00 Temp 36.6 Pulse 105 Resp 21 B/P (MAP) 109/62 (78) Pulse Ox 98 O2 Delivery Nasal Cannula O2 Flow Rate 2.00 Capillary Refill : I&O Intake and Output 08/24/19 00:00 Intake Total 800 ml Balance 800 ml Intake Oral 800 ml # Voids 8 # Bowel Movements 3 General: Alert, Oriented X3, Cooperative HEENT: Atraumatic, PERRLA Neck: Supple, No JVD, No Thyromegaly Lungs: Normal Air Movement Heart: Regular Rate, Normal S1, Normal S2, No Murmurs, Other (systolic murmur at the left sternal border) Abdomen: Normal Bowel Sounds, Soft, No Tenderness, No Hepatosplenomegaly, No Masses Extremities: No Clubbing, No Cyanosis, No Edema, Normal Pulses, No Tenderness/Swelling Skin: No Rashes, No Breakdown, No Significant Lesion Neuro: Normal Gait, Normal Speech, Strength at 5/5 X4 Ext, Normal Tone, Sensation Intact Psych/Mental Status: Mental Status NL, Mood NL A/P-Cardiology Admission Diagnosis Critical aortic valve stenosis Congestive heart failure, acute on chronic left ventricular systolic dysfunction, nonischemic cardiomyopathy Hypertension Hyperlipidemia Assessment/Plan Critical aortic valve stenosis status post balloon valvuloplasty, has been following with Dr. Del Toro, continue to monitor. Will need valve replacement surgery in the near future. Patient to follow up with Dr. Chaidez and Dr. Bang as outpatient. Congestive heart failure, severe cardiomyopathy nonischemic, acute on chronic left ventricular systolic dysfunction, secondary to valvular heart disease. Reported ejection fraction 25 percent Hypotension secondary to medication. Continue on current medication with paramet er to hold blood pressure medication if systolic below 90. Hyperlipidemia, monitor lipids Reported history of CVA in the past History of intolerance to TUSHAR inhibitor with cough. Diabetes mellitus Anxiety. Debility Patient was seen and evaluated, feeling better today, exercising better. Lungs examination is clear, no significant edema. Borderline hypotensive, continue on current medication and continue to monitor, monitor blood pressure and lipids Clinical Quality Measures DVT/VTE Risk/Contraindication: Risk Factor Score Per Nursin RFS Level Per Nursing on Admit: 4+=Very High Supervisory-Addendum Brief Supervisory Addendum Participated in pt care: history, MDM, physical Personally performed: exam, history, MDM Care discussed with: ANJANA NOLEN Aug 24, 2019 8:44 am CAYETANO AGUIAR MD Aug 24, 2019 3:03 pm
[2019-08-24] MEDS: KCL 10 MEQ TAB (MICRO K) PO SCH (08:56)
--- NOTE | 2019-08-24 09:56 | Speech Therapy Daily Note ---
Speech Daily Progress Note Subjective Date Seen by Provider: Aug 24, 2019 Time Seen by Provider: 00:30 Patient was resting in her recliner after finishing OT. Objective Patient completed a series of problem solving questions related to her daily needs at 85% with minimal to moderate cues. Assessment Assessment Current Status: Good Progress Treatment Plan Continue Plan of Care Communication Comprehension: 5 Expression: 5 Social Cognition Social Interaction: 4 Problem Solvin Memory: 5 Speech Short Term Goals Short Term Goals Short Term Goals 1) Patient will completed memory tasks related to her daily needs at 80% with minimal cues. 2) Patient will completed problem solving tasks related to her daily needs at 80% with minimal cues. 3) Patient will completed safety awareness tasks related to her daily needs at 80% with minimal cues. Speech Road Marker Goals Senior Care Goals Patient will improve cognitive-communication necessary for safety and daily living tasks with minimal assist. Speech-Plan Patient/Family Goals Patient/Family Goals: Patient plans on returning to her [facility] apartment upon rehab discharge. Treatment Plan Speech Therapy Treatment Plan: Continue Plan of Care Patient is progressing toward ST goals. Treatment Duration: Aug 29, 2019 Frequency: 5 times per week Estimated Hrs Per Day: .5 hour per day Rehab Potential: Good Barriers to Learning: Patient has cognitive deficits. Pt/Family Agrees to Plan: Yes Safety Risks/Education Teaching Recipient: Patient Teaching Methods: Demonstration, Discussion Response to Teaching: Verbalize Understanding, Return Demonstration Time Speech Therapy Time In: 09:15 Speech Therapy Time Out: 09:45 Total Billed Time: 30 Billed Treatment Time 1VIVEK [address] Aug 24, 2019 09:56
--- NOTE | 2019-08-24 10:08 | PM&R Progress Note ---
Subjective HPI/CC On Admission Date Seen by Provider: Aug 24, 2019 Time Seen by Provider: 09:00 Chief complaint: Myopathy with debility History of present illness: This is a 79-year-old white female clinic patient of Kalee Harvey in [facility] who has a past medical history of diabetes mellitus and hypertension with valvular heart disease who presents following a 10 day hospital stay at [facility] when she was admitted there for congestive heart failure found to have ejection fraction of 25 percent. She was having shortness of breath and continued to have shortness of breath since that time and further evaluation showed severe aortic stenosis. She was treated for congestive heart failure in preparation for a TVAR in the future but managing her volume status was difficulty so a valvuloplasty was required and significantly improved her status she began breathing better and the pulmonary edema on chest x-ray was much improved. Her creatinine remained normal at 1.0. She did have mild anemia and that was monitor closely along with glucose monitoring. Dr. Luiz Pastor is her primary finance vice president. She will see cardiovascular surgeon Dr. Buckner and 32 days to arrange for scheduling the TVAR. Currently patient is very upset that she has not received her alprazolam benzodiazepine for her anxiety she does not appear to be terribly anxious but will try to reassure her with a warm blanket while her home medications are being put in the computer in order to restart. Appreciate Dr. Bansal in consultation also. Subjective/Events-last exam Pt BP is a little bit soft 98/60 DC plan for tomorrow Slept better Refusing insulin Daughter brought her own insulin and she reluctantly took that Back to baseline for her Has 32 hours of skill therapy so she should be very well. monitored Check meds and labs Reviewed therapy notes Conferred with mortgage banker of Systems Gastrointestinal: Diarrhea Objective Exam Vital Signs Vital Signs Date Time Temp Pulse Resp B/P (MAP) Pulse Ox O2 Delivery O2 Flow Rate FiO2 08/24/19 20:46 Nasal Cannula 2.00 08/24/19 17:28 36.4 88 18 103/63 (76) 100 Capillary Refill : General Appearance: No Apparent Distress, WD/WN, Chronically ill, Obese HEENT: PERRL/EOMI, Normal ENT Inspection, Pharynx Normal, Moist Mucous Membranes Neck: Full Range of Motion, Normal Inspection, Non Tender, Supple Respiratory: Chest Non Tender, Lungs Clear, Normal Breath Sounds, No Accessory Muscle Use, No Respiratory Distress, Decreased Breath Sounds Cardiovascular: No Edema, No Gallop, No JVD, Bradycardia, Systolic Murmur, Irregularly Irregular Gastrointestinal: Normal Bowel Sounds, No Organomegaly, No Pulsatile Mass, Non Tender, Soft Back: Normal Inspection, No CVA Tenderness, No Vertebral Tenderness Extremity: Normal Capillary Refill, Normal Inspection, Normal Range of Motion, Non Tender, No Calf Tenderness, Pedal Edema Neurologic/Psychiatric: Alert, Oriented x3, No Motor/Sensory Deficits, Normal Mood/Affect, scrap stripper hand II-XII Norm as Tested, Motor Weakness (generalized in arms and legs upper and lower) Skin: Normal Color, Warm/Dry Lymphatic: No Adenopathy Results/Procedures Lab Patient resulted labs reviewed. FIM Transfers Therapy Code Descriptions/Definitions Functional [place] Measure: 0=Not Assessed/NA 4=Minimal Assistance 1=Total Assistance 5=Supervision or Setup 2=Maximal Assistance 6=Modified [place] 3=Moderate Assistance 7=Complete [place] Therapy Quality Codes: 6 Independent with activity with or without an assistive device 5 Patient requires set up or clean up by helper. Patient completes activity by themselves 4 Supervision or touching assist (CGA). [place] provide cues , steadying assist 3 The helper provides less than half the effort to complete the activity 2 The helper provides more than half the effort to complete the activity 1 Dependent. The helper does all the effort to complete an activity 7 Patient refused to complete or attempt activity 9 The patient did not perform the activity before the current illness or injury 88 Not attempted due to Medical conditions or safety concerns Transfers (B, C, W/C) (FIM): 6 Scootin Rollin Roll Left to Right (QC): 6 Supine to/from Sit: 6 Sit to/from Stand: 6 Sit to Lying (QC): 6 Sit to Stand (QC): 6 Chair/Een-xx-Izdcf Xfer(QC): 6 Bed to/from Chair: 6 Car Transfer (QC): 5 Gait Training Does the Patient Walk?: Yes Gait (FIM): 6 Distance (FIM): 3=150 ft Distance: 200' x 2 Walk 10 feet (QC): 6 Walk 50 ft with 2 Turns(QC): 6 Walk 150 ft (QC): 6 Walking 10ft/uneven surface-QC: 5 Gait Level of Assist: 6 Gait Persons Needed: 1 Gait Assistive Device: FWW Stair Training Stairs (FIM): 2 #of Steps: 2 1 Step (curb) (QC): 4 4 Steps (QC): 88 12 Steps (QC): 9 Level of Assist: 4 Mental Status/Objective Comprehension: 5 Expression: 5 Social Interaction: 4 Problem Solvin Memory: 5 ADL-Treatment Feedin Eating (QC): 6 Groomin Bathin Bathing Location: L Arm, R Arm, L Upper Leg, R Upper Leg, Chest, Abdomen, Buttocks, Perineal Area Shower/Bathe Self (QC): 3 Upper Extremity Dressin Upper Body Dressing (QC): 5 Lower Extremity Dressin Lower Body Dressing (QC): 2 On/Off Footwear (QC): 2 (Pt able to open packaging, able to direct care. Pt requires threading of BLE, able to lift feet off floor. Pt states her caregivers assist with socks if she wears them, pt states she never wears socks at home.) Toiletin Toileting Hygiene (QC): 3 Toilet/Commode Transfer: 5 Toilet Transfer (QC): 4 Tub: 5 (SBA, use of FWW and grab bars.) Shower: 5 Assessment/Plan Assessment and Plan Assess & Plan/Chief Complaint Assessment: Myopathy Debility Congestive heart failure 25 percent ejection fraction line severe aortic stenosis status post valvuloplasty temporarily in preparation for TVAR at [facility] Diabetes mellitus Osteoarthritis Anxiety Sleep apnea Depression Hypokalemia Plan: Continue home meds anxiolytics Pain medication Appreciate Dr. Bansal Reviewed labs Mattress change per patient request DC home soon BM regimen to continue DC tomorrow (1) Myopathy Status: Acute (2) Congestive heart failure Status: Acute Qualifiers: Heart failure type: systolic Heart failure chronicity: acute on chronic Qualified Codes: I50.23 - Acute on chronic systolic (congestive) heart failure (3) CAD (coronary artery disease) Status: Chronic Qualifiers: Coronary Disease-Associated Artery/Lesion type: [place] artery [place] vs. transplanted heart: [place] heart Associated angina: without angina Qualified Codes: I25.10 - Atherosclerotic heart disease of [place] coronary artery without angina pectoris (4) Diabetes mellitus Status: Chronic Qualifiers: Diabetes mellitus type: type 2 Diabetes mellitus residential insulin use: without regional intermodal truck driver use Diabetes mellitus complication status: with other s pecified complication Qualified Codes: E11.69 - Type 2 diabetes mellitus with other specified complication (5) Morbid obesity Status: Chronic (6) Sleep apnea Status: Chronic Qualifiers: Sleep apnea type: unspecified type Qualified Codes: G47.30 - Sleep apnea, unspecified (7) Anemia Status: Chronic Qualifiers: Anemia type: unspecified type Qualified Codes: D64.9 - Anemia, unspecified (8) Elevated brain natriuretic peptide (BNP) level Status: Chronic (9) Aortic stenosis Status: Chronic Qualifiers: Cardiac valve disease etiology: etiology unspecified Qualified Codes: I35.0 - Nonrheumatic aortic (valve) stenosis (10) Anxiety Status: Chronic (11) Depression Status: Chronic Qualifiers: Depression Type: unspecified Qualified Codes: F32.9 - Major depressive disorder, single episode, unspecified (12) Multiple sclerosis Status: Chronic MALLORY TUCKER DO Aug 24, 2019 10:07
[2019-08-24] MEDS ORDERED: BENEFIBER (FROM DIETARY) DOCUMENTATION PURPOSE ONLY PO PRN (10:15)
[2019-08-24] MEDS: SIMvastatin 20 MG (ZOCOR) TAB PO SCH (11:56)
[2019-08-24] MEDS: MAGNESIUM OXIDE (MAG-OX)400 MG TAB PO SCH (11:56)
--- NOTE | 2019-08-24 12:00 | NUR ---
PATIENT'S DAUGHTER BROUGHT IN BASAGLAR INSULIN FROM HOME AND ORDER OBTAINED FROM DR. TUCKER TO CONTINUE IT AND CONCHITA KAPOOR.
[2019-08-24] MEDS ORDERED: PATIENT MAY USE OWN MED,SINGLE MED PO SCH (12:30)
--- NOTE | 2019-08-24 12:36 | Physical Therapy Daily Note ---
PT Daily Note-Current Subjective Pt sitting in recliner upon arrival. Pt agrees to PT but feels she needs to get stronger and is not ready to D/C. Pain Location Body Site: Sacrum Pain Description: Ache Comment: Pt does not rate, only mentions at end of tx. Mental Status Patient Orientation: Person, Confused, Place Attachments: Oxygen (2L) Transfers Therapy Code Descriptions/Definitions Functional [place] Measure: 0=Not Assessed/NA 4=Minimal Assistance 1=Total Assistance 5=Supervision or Setup 2=Maximal Assistance 6=Modified [place] 3=Moderate Assistance 7=Complete [place] Therapy Quality Codes: 6 Independent with activity with or without an assistive device 5 Patient requires set up or clean up by helper. Patient completes activity by themselves 4 Supervision or touching assist (CGA). [place] provide cues , steadying assist 3 The helper provides less than half the effort to complete the activity 2 The helper provides more than half the effort to complete the activity 1 Dependent. The helper does all the effort to complete an activity 7 Patient refused to complete or attempt activity 9 The patient did not perform the activity before the current illness or injury 88 Not attempted due to Medical conditions or safety concerns Transfers (B, C, W/C) (FIM): 6 Scootin Sit to/from Stand: 6 Sit to Stand (QC): 6 Car Transfer (QC): 6 TAX EXAMINER has some safety concerns and pt needs redirection about safer way to complete tasks especially transfers. Gait Training Does the Patient Walk?: Yes Gait (FIM): 6 Distance (FIM): 3=150 ft Distance: 200' Walk 10 feet (QC): 6 Walk 50 ft with 2 Turns(QC): 6 Walk 150 ft (QC): 6 Walking 10ft/uneven surface-QC: 6 Gait Level of Assist: 6 Gait Persons Needed: 1 Gait Assistive Device: FWW Wheelchair Training Does the Pt Use a Wheelchair?: No Stair Training Stair Training: Handrails/: uses walker Stairs (FIM): 3 #of Steps: 2 1 Step (curb) (QC): 5 4 Steps (QC): 9 12 Steps (QC): 9 Stairs: Pattern: Step to Level of Assist: 5 Balance Picking up an Object (QC): 88 Special Test Comments Pt brings on pt's anxiety so not completed. Pt has a worker at home to assist her. Exercises NuStep Minutes: 10 NuStep Workload: 5 Treatments Pt completes FIM scoring items including transfers including car transfer, ambulation including across varying surface, 2 steps on single step using FWW but not picking up object from floor (see note). Pt will complete bed mobility in afternoon. Pt uses NuStep for 10m at WL 5. Pt also uses restroom twice during tx. Pt returns to recliner at end of tx to rest, Nurse present & all needs met. Assessment Current Status: Good Progress Pt is able to complete more than pt believes she can complete. Pt demonstrates anxiety with thought of D/C. Pt will have assistance at home. PT Intermediate Goals Link Fabric Machine Operator Goals PT Intermediate Goals Time Frame: Sep 10, 2019 Transfers (B,C,W/C) (FIM): 6 Sit to Lying (QC): 6 Lying-Sitting on Side/Bed(QC): 6 Sit to Stand (QC): 6 Rollin Roll Left to Right (QC): 6 Chair/Qes-zn-Qowcz Xfer(QC): 6 Car Transfer (QC): 6 Does the Patient Walk: Yes Gait (FIM): 6 Gait distance (FIM): 3=150 ft Distance: 150' Walk 10 feet (QC): 6 Walk 10ft-Uneven Surface(QC): 6 Walk 50ft with 2 Turns (QC): 6 Walk 150 ft (QC): 6 Gait Level of Assist: 6 Gait Assistive Device: FWW Stairs (FIM): 2 # of Steps: 4 1 Step (curb) (QC): 5 4 Steps (QC): 5 12 Steps (QC): 9 Stairs Level Of Assist: 5 Picking up an Object (QC): 5 PT Plan Problem List Problem List: Activity Tolerance, Safety Treatment/Plan Treatment Plan: Continue Plan of Care Treatment Plan: Bed Mobility, Concurrent Therapy, Education, Functional Activity Mary, Functional Strength, Group Therapy, Gait, Safety, Therapeutic Exercise, Transfers Treatment Duration: Sep 10, 2019 Frequency: At least 5 of 7 days/Wk (IRF) Estimated Hrs Per Day: 1.5 hours per day Patient and/or Family Agrees t: Yes Safety Risks/Education Patient Education: Gait Training, Transfer Techniques, Correct Positioning, Sa fety Issues Teaching Recipient: Patient Teaching Methods: Discussion Response to Teaching: Reinforcement Needed Time/GCodes Time In: 1115 Time Out: 1200 Total Billed Treatment Time: 45 Total Billed Treatment 1, GT (15m) & FA x2 (30m) DEL GALINDO TAX EXAMINER Aug 24, 2019 12:36
[2019-08-24] MEDS ORDERED: BASAGLAR 100 UNIT/ML SQ SCH (12:45)
--- NOTE | 2019-08-24 12:45 | Occupational Ther Daily Note ---
OT Current Status-Daily Note Subjective Pt agrees to therapy, reports 2/10 pain in tailbone, neck, and shoulders. Pt concerned throughout treatment about needing to have a bowel movement and requires encouragement to participate in other activities. Mental Status/Objective Therapy Code Descriptions/Definitions Functional [place] Measure: 0=Not Assessed/NA 4=Minimal Assistance 1=Total Assistance 5=Supervision or Setup 2=Maximal Assistance 6=Modified [place] 3=Moderate Assistance 7=Complete [place] Attachments: Oxygen ADL-Treatment Pt ambulated to restroom with FWW. Transferred to [facility] over toilet x3 during session with modified independence. Able to complete toileting hygiene and clothing management with SBA and increased time. Transfer to walk in shower with supervision using grab bars for safety. Pt completed seated bathing using hand held shower. Pt able to wash all areas with SBA. Don pullover dress with set up. Pt able to thread bilateral LE into Depends and stand with supervision for pant hike. Pt donned right sock, but unable to don left without AE. Instructed in use of sock aid. Pt then able to don sock with SBA. Pt combed hair with SBA. Pt states she soaked her dentures at night and was able to place in mouth this morning after set up. Pt requires rest breaks and increased time for ADL tasks. Therapy Code Descriptions/Definitions Functional [place] Measure: 0=Not Assessed/NA 4=Minimal Assistance 1=Total Assistance 5=Supervision or Setup 2=Maximal Assistance 6=Modified [place] 3=Moderate Assistance 7=Complete [place] Therapy Quality Codes: 6 Independent with activity with or without an assistive device 5 Patient requires set up or clean up by helper. Patient completes activity by themselves 4 Supervision or touching assist (CGA). [place] provide cues , steadying assist 3 The helper provides less than half the effort to complete the activity 2 The helper provides more than half the effort to complete the activity 1 Dependent. The helper does all the effort to complete an activity 7 Patient refused to complete or attempt activity 9 The patient did not perform the activity before the current illness or injury 88 Not attempted due to Medical conditions or safety concerns Eating (FIM): 6 (per nursing report) Eating (QC): 6 Grooming (FIM): 5 Oral Hygiene (QC): 5 Bathing (FIM): 5 Shower/Bathe Self (QC): 4 Upper Body (FIM): 5 Upper Body Dressing (QC): 5 Lower Body Dressing (FIM): 5 Lower Body Dressing (QC): 4 On/Off Footwear (QC): 4 Toileting (FIM): 5 Toileting Hygiene (QC): 5 Toilet/Commode Transfer (FIM): 6 Toilet Transfer (QC): 6 Shower Transfer(FIM): 5 Other Treatment Pt required encouragement to participate in therapeutic activity outside of room, secondary to concerns about having a bowel movement. Pt ambulated to commons area with FWW without LOB, but then requested to return to room after seated rest break. Bilateral UE AROM exercises completed x15 reps to increase strength and activity tolerance needed for functional task completion. Rest breaks between exercises. Bilateral hand core rescuer exercises x20 reps with moderate resistance therapy foam. Pt sitting in chair with needs met after session. OT Short Term Goals Short Term Goals Time Frame: Aug 27, 2019 Grooming(FIM): 5 (met) Toileting(FIM): 4 (met) Toilet/Commode Transfer(FIM): 5 (met) Additional Short Term Goals: 1-Demonstrate ADL Tasks, 2-Verbalize U nderstanding, 3-ImproveStrength/Mary 1=Demonstrate adherence to instructed precautions during ADL tasks. 2=Patient will verbalize/demonstrate understanding of assistive devices/modifications for ADL. 3=Patient will improve strength/tolerance for activity to enable patient to perform ADL's. OT Calculation Clerk Goals [facility] Goals Time Frame: Sep 03, 2019 Eating (FIM): 6 (met) Eating (QC): 6 (met) Groomin Oral Hygiene (QC): 6 Bathing(FIM): 5 Shower/Bathe Self (QC): 5 Upper Body Dressing(FIM): 6 Upper Body Dressing (QC): 6 Lower Body Dressing(FIM): 6 Lower Body Dressing (QC): 6 On/Off Footwear (QC): 6 Toileting(FIM): 6 Toileting Hygiene (QC): 6 Toilet/Commode Transfer(FIM): 6 Toilet/Commode Transfer (QC): 6 Shower Transfer(FIM): 6 Additional Goals: 1-Demonstrate ADL Tasks, 2-Verbalize Understanding, 3- ImproveStrength/Mary 1=Demonstrate adherence to instructed precautions during ADL tasks. 2=Patient will verbalize/demonstrate understanding of assistive devices/modifications for ADL. 3=Patient will improve strength/tolerance for activity to enable patient to perform ADL's. OT Education/Plan Problem List/Assessment Pt would benefit from skilled OT to increase her independence in basic self care to allow her to safely return home to live alone after hospitalization. Discharge Recommendations Plan/Recommendations: Continue POC Treatment Plan/Plan of Care Patient would benefit from OT for education, treatment and training to promote independence in ADL's, mobility, safety and/or upper extremity function for ADL's. Plan of Care: ADL Retraining, Functional Mobility, Group Exercise/Act as Ind (education, exercise, socialization, funct mobility, activity tolerance), UE Funct Exercise/Act, UE Neuromus Re-Ed/Coord, W/C Management Training, OTHER (energy conservation education) Treatment Duration: Sep 03, 2019 Frequency: At least 5 of 7 days/Wk (IRF) Estimated Hrs Per Day: Other Agreement: Yes Rehab Potential: Good Time/GCodes Start Time: 08:00 Stop Time: 09:15 Total Time Billed (hr/min): 75 Billed Treatment Time 1 visit, ADLx3(50minutes), EX(15minutes), FA(10minutes) TRISTEN TREJO OT Aug 24, 2019 12:45
--- NOTE | 2019-08-24 14:30 | NUR ---
VERY CONCERNED ABOUT GETTING CONSTIPATED. HAS EXPELLED BM X 2 TODAY, BUT STILL HAD HOME BENEFIBER BROUGHT IN AND TAKING STOOLS SOFTENERS AND PLANNING ON MORE PRUNE JUICE FOR DINNER.
--- NOTE | 2019-08-24 14:52 | NUR ---
Weekly team conference Met with patient regarding weekly team conference and team's recommendation for discharge on 08/25/19 with resumption of her established 32.5 hours/week of in-home assistance through [employer]. Patient verbalized understanding but states she does not want to do anything that would jeopardize her valve replacement surgery in the near future. Patient also states her daughter will "probably be mad" that she is discharging home. Assured patient that Dr. Wilde and the rehab team would not recommend discharge unless she was medically stable and deemed safe to return home. Informed patient that this worker would contact her daughter regarding discharge plan. Patient verbalized understanding. Patient stated she was relieved to go home and that Tasha Hamilton, who assists her at home, would be happy to be working with her again.
--- NOTE | 2019-08-24 15:00 | NUR ---
Contacted patient's daughter, Sheri Manzo, regarding planned discharge for tomorrow. Sheri states she will contact Tasha Hamilton, in-home senior it assistant, to arrange transportation for tomorrow afternoon.
--- NOTE | 2019-08-24 15:56 | Physical Therapy Daily Note ---
PT Daily Note-Current Subjective Pt sitting in recliner with feet reclined upon arrival. Pt agrees to PT. Pain Numeric Pain Scale: 4 Location Body Site: Neck Pain Description: Ache Mental Status Patient Orientation: Person, Confused, Place Transfers Therapy Code Descriptions/Definitions Functional [place] Measure: 0=Not Assessed/NA 4=Minimal Assistance 1=Total Assistance 5=Supervision or Setup 2=Maximal Assistance 6=Modified [place] 3=Moderate Assistance 7=Complete [place] Therapy Quality Codes: 6 Independent with activity with or without an assistive device 5 Patient requires set up or clean up by helper. Patient completes activity by themselves 4 Supervision or touching assist (CGA). [place] provide cues , steadying assist 3 The helper provides less than half the effort to complete the activity 2 The helper provides more than half the effort to complete the activity 1 Dependent. The helper does all the effort to complete an activity 7 Patient refused to complete or attempt activity 9 The patient did not perform the activity before the current illness or injury 88 Not attempted due to Medical conditions or safety concerns Transfers (B, C, W/C) (FIM): 6 Scootin Rollin Roll Left to Right (QC): 6 Supine to/from Sit: 6 Sit to/from Stand: 6 Sit to Lying (QC): 6 Sit to Stand (QC): 6 Chair/Gmw-rm-Iffmr Xfer(QC): 6 Bed to/from Chair: 6 Treatments Pt transfers from recliner to standing and uses restroom. Pt then completes bed mobility to finish morning FIM scoring. Pt transfers from EOB to W/C at end of tx with all needs met, call light in hand. Assessment Current Status: Good Progress Pt still demonstrating anxiety about possible upcoming D/C. PT Longterm Goals Rolled Gold Plater Goals PT Rolled Gold Plater Goals Time Frame: Sep 10, 2019 Transfers (B,C,W/C) (FIM): 6 Sit to Lying (QC): 6 Lying-Sitting on Side/Bed(QC): 6 Sit to Stand (QC): 6 Rollin Roll Left to Right (QC): 6 Chair/Olq-tq-Scgal Xfer(QC): 6 Car Transfer (QC): 6 Does the Patient Walk: Yes Gait (FIM): 6 Gait distance (FIM): 3=150 ft Distance: 150' Walk 10 feet (QC): 6 Walk 10ft-Uneven Surface(QC): 6 Walk 50ft with 2 Turns (QC): 6 Walk 150 ft (QC): 6 Gait Level of Assist: 6 Gait Assistive Device: FWW Stairs (FIM): 2 # of Steps: 4 1 Step (curb) (QC): 5 4 Steps (QC): 5 12 Steps (QC): 9 Stairs Level Of Assist: 5 Picking up an Object (QC): 5 PT Plan Problem List Problem List: Activity Tolerance, Safety Treatment/Plan Treatment Plan: Continue Plan of Care Treatment Plan: Bed Mobility, Concurrent Therapy, Education, Functional Activi ty Mary, Functional Strength, Group Therapy, Gait, Safety, Therapeutic Exercise, Transfers Treatment Duration: Sep 10, 2019 Frequency: At least 5 of 7 days/Wk (IRF) Estimated Hrs Per Day: 1.5 hours per day Patient and/or Family Agrees t: Yes Safety Risks/Education Patient Education: Transfer Techniques, Correct Positioning, Safety Issues Teaching Recipient: Patient Teaching Methods: Discussion Response to Teaching: Verbalize Understanding Time/GCodes Time In: 1330 Time Out: 1400 Total Billed Treatment Time: 30 Total Billed Treatment 1, EX (15m) & FA (15m) DEL GALINDO WELL TESTER Aug 24, 2019 15:56
[2019-08-24] MEDS: GLIMEPIRIDE 4 MG (AMARYL) TAB PO SCH (16:28)
[2019-08-24 17:28] VITALS: BP 103/63
[2019-08-24] MEDS: CYCLOBENZAPRINE 10 MG (FLEXERIL) TAB PO PRN (18:21)
[2019-08-24] MEDS: NITROFURANTOIN 100 MG (MACROBID) CAPSULE PO SCH (20:18)
[2019-08-24] MEDS: DOCUSATE SODIUM 100 MG (COLACE) CAP PO PRN (20:19)
[2019-08-25] MEDS: CYCLOBENZAPRINE 10 MG (FLEXERIL) TAB PO PRN (05:08)
[2019-08-25] MEDS: ALPRAZolam 0.5 MG (XANAX) TAB PO PRN (05:08)
[2019-08-25 05:58] VITALS: BP 121/70
[2019-08-25] MEDS: BUMETANIDE 1 MG (BUMEX) TAB PO SCH (06:13)
[2019-08-25] MEDS: inSUlin ASPART (NovoLOG) 1 UNIT/0.01 ML (CHARGE PER UNIT) SC SCH (06:13)
[2019-08-25] MEDS ORDERED: BUME1TAB8 PO (06:15)
[2019-08-25] MEDS ORDERED: LOSA25TA41 PO (06:15)
[2019-08-25] MEDS ORDERED: ACHD5005 PO (06:15)
[2019-08-25] MEDS ORDERED: SPIR25TA5 PO (06:15)
[2019-08-25] MEDS ORDERED: DICL100G18 TOP (06:15)
--- NOTE | 2019-08-25 06:17 | Discharge Summary ---
Diagnosis/Chief Complaint Date of Admission Aug 19, 2019 at 20:15 Date of Discharge Discharge Date: Aug 25, 2019 Discharge Diagnosis Assessment: Myopathy Debility Congestive heart failure 25 percent ejection fraction line severe aortic stenosis status post valvuloplasty temporarily in preparation for TVAR at [facility] Diabetes mellitus Osteoarthritis Anxiety Sleep apnea Depression Hypokalemia Plan: Continue home meds anxiolytics Pain medication Appreciate Dr. Bansal Reviewed labs Mattress change per patient request DC home soon BM regimen to continue DC tomorrow (1) Myopathy Status: Acute (2) Congestive heart failure Status: Acute Qualifiers: Heart failure type: systolic Heart failure chronicity: acute on chronic Qualified Codes: I50.23 - Acute on chronic systolic (congestive) heart failure (3) CAD (coronary artery disease) Status: Chronic Qualifiers: Coronary Disease-Associated Artery/Lesion type: squaxin artery [place] vs. transplanted heart: squaxin heart Associated angina: without angina Qualified Codes: I25.10 - Atherosclerotic heart disease of squaxin coronary artery without angina pectoris (4) Diabetes mellitus Status: Chronic Qualifiers: Diabetes mellitus type: type 2 Diabetes mellitus [facility] insulin use: without rodent exterminator use Diabetes mellitus complication status: with other specified complication Qualified Codes: E11.69 - Type 2 diabetes mellitus with other specified complication (5) Morbid obesity Status: Chronic (6) Sleep apnea Status: Chronic Qualifiers: Sleep apnea type: unspecified type Qualified Codes: G47.30 - Sleep apnea, unspecified (7) Anemia Status: Chronic Qualifiers: Anemia type: unspecified type Qualified Codes: D64.9 - Anemia, unspecified (8) Elevated brain natriuretic peptide (BNP) level Status: Chronic (9) Aortic stenosis Status: Chronic Qualifiers: Cardiac valve disease etiology: etiology unspecified Qualified Codes: I35.0 - Nonrheumatic aortic (valve) stenosis (10) Anxiety Status: Chronic (11) Depression Status: Chronic Qualifiers: Depression Type: unspecified Qualified Codes: F32.9 - Major depressive disorder, single episode, unspecified (12) Multiple sclerosis Status: Chronic Discharge Summary Discharge Physical Examination Allergies: Coded Allergies: Beta-Blockers (Beta-Adrenergic Bloc (Verified Allergy, Unknown, 08/20/19) Thiazides (Verified Allergy, Unknown, 08/20/19) thiazide -type diuretics acebutolol (Verified Allergy, Unknown, 08/20/19) amitriptyline (Verified Allergy, Unknown, 08/20/19) from elavil amoxicillin (Verified Allergy, Unknown, 08/20/19) aspirin (Verified Allergy, Unknown, 08/20/19) from talwin compound atenolol (Verified Allergy, Unknown, 08/20/19) atropine (Verified Allergy, Unknown, 08/20/19) from lomotil azithromycin (Verified Allergy, Unknown, 08/20/19) captopril (Verified Allergy, Unknown, 08/20/19) from capozide cephalexin (Verified Allergy, Unknown, 08/20/19) from keflex clavulanic acid (Verified Allergy, Unknown, 08/20/19) from augmentin codeine (Verified Allergy, Unknown, 08/20/19) diphenoxylate (Verified Allergy, Unknown, 08/20/19) from lomotil doxepin (Verified Allergy, Unknown, 08/20/19) doxycycline (Verified Allergy, Unknown, 08/20/19) enalapril (Verified Allergy, Unknown, 08/20/19) glipizide (Verified Allergy, Unknown, 08/20/19) hydralazine (Verified Allergy, Unknown, 08/20/19) from apresazide hydrochlorothiazide (Verified Allergy, Unknown, 08/20/19) from apresazide levofloxacin (Verified Allergy, Unknown, 08/20/19) from levaquin meperidine (Verified Allergy, Unknown, 08/20/19) metoprolol (Verified Allergy, Unknown, 08/20/19) metronidazole (Verified Allergy, Unknown, 08/20/19) from flagyl naproxen (Verified Allergy, Unknown, 08/20/19) penicillin V (Verified Allergy, Unknown, 08/20/19) from penicillin vk pentazocine (Verified Allergy, Unknown, 08/20/19) from talwin compound perphenazine (Verified Allergy, Unknown, 08/20/19) from etrafon prednisone (Verified Allergy, Unknown, 08/20/19) propranolol (Verified Allergy, Unknown, 08/20/19) sulfadiazine (Verified Allergy, Unknown, 08/20/19) verapamil (Verified Allergy, Unknown, 08/20/19) Vitals & I&Os Vital Signs Date Time Temp Pulse Resp B/P (MAP) Pulse Ox O2 Delivery O2 Flow Rate FiO2 08/25/19 09:00 Nasal Cannula 2.00 08/25/19 07:41 98 08/25/19 05:58 36.0 90 22 121/70 (87) General Appearance: Alert, Oriented X3, Cooperative Respiratory: Clear to Auscultation Cardiovascular: Regular Rate Neuro: Normal Gait, Normal Speech, Strength at 5/5 X4 Ext Psych/Mental Status: Mental Status NL Hospital Course Was the Problem List Reviewed?: Yes Hospital course: Pt had an uneventful seven day hospital course when she was admitted from [facility] after a long stay for ten days for congestive heart failure, resulted in a valvuloplasty of the aortic valve in order to manage her fluid status more satisfactorily in preparation for an aortic valve replacement by Dr. Bang in approximately six weeks. Her labs remain stale, cardiology was consulted, no significant medication changes were initiated and she participated in all therapy and was found to be back to baseline and ready for discharge home. Labs (last 24 hrs) Laboratory Tests 08/19/19 22:58: Glucometer 140H 08/20/19 06:10: Glucometer 160H 08/20/19 09:44: White Blood Count 10.0, Red Blood Count 4.83, Hemoglobin 12.6, Hematocrit 40, Mean Corpuscular Volume 83, Mean Corpuscular Hemoglobin 26, Mean Corpuscular He moglobin Concent 32, Red Cell Distribution Width 14.7H, Platelet Count 374, Mean Platelet Volume 10.2, Neutrophils (%) (Auto) 69, Lymphocytes (%) (Auto) 13, Monocytes (%) (Auto) 13H, Eosinophils (%) (Auto) 4, Basophils (%) (Auto) 1, Neutrophils # (Auto) 7.0, Lymphocytes # (Auto) 1.3, Monocytes # (Auto) 1.3H, Eosinophils # (Auto) 0.4H, Basophils # (Auto) 0.1, Sodium Level 134L, Potassium Level 4.2, Chloride Level 89L, Carbon Dioxide Level 33H, Anion Gap 12, Blood Urea Nitrogen 19H, Creatinine 0.96, Estimat Glomerular Filtration Rate 56, BUN/Creatinine Ratio 20, Glucose Level 192H, Calcium Level 10.1, Corrected Calcium 10.2H, Total Bilirubin 0.8, Aspartate Amino Transf (AST/SGOT) 26, Alanine Aminotransferase (ALT/SGPT) 23, Alkaline Phosphatase 83, B-Type Natriuretic Peptide 988.2H, Total Protein 7.4, Albumin 3.9, Thyroid Stimulating Hormone (TSH) 3.00 08/20/19 12:46: Glucometer 313H 08/20/19 17:11: Glucometer 164H 08/20/19 20:54: Glucometer 246H 08/21/19 05:52: Glucometer 122H 08/21/19 10:32: Glucometer 214H 08/21/19 15:30: Glucometer 215H 08/21/19 20:31: Glucometer 163H 08/22/19 04:45: White Blood Count 7.4, Red Blood Count 4.24L, Hemoglobin 11.0L, Hematocrit 35, Mean Corpuscular Volume 83, Mean Corpuscular Hemoglobin 26, Mean Corpuscular Hemoglobin Concent 31L, Red Cell Distribution Width 14.8H, Platelet Count 327, Mean Platelet Volume 10.0, Neutrophils (%) (Auto) 59, Lymphocytes (%) (Auto) 17, Monocytes (%) (Auto) 15H, Eosinophils (%) (Auto) 7, Basophils (%) (Auto) 2, Neutrophils # (Auto) 4.4, Lymphocytes # (Auto) 1.3, Monocytes # (Auto) 1.1H, Eosinophils # (Auto) 0.5H, Basophils # (Auto) 0.1, Sodium Level 137, Potassium Level 3.5L, Chloride Level 92L, Carbon Dioxide Level 33H, Anion Gap 12, Blood Urea Nitrogen 22H, Creatinine 0.81, Estimat Glomerular Filtration Rate > 60, BUN/Creatinine Ratio 27, Glucose Level 79, Calcium Level 9.3, Corrected Calcium 9.9, Total Bilirubin 0.6, Aspartate Amino Transf (AST/SGOT) 21, Alanine Aminotransferase (ALT/SGPT) 22, Alkaline Phosphatase 63, Total Protein 6.0L, Albumin 3.3 08/22/19 16:25: Glucometer 70 08/22/19 17:31: Glucometer 124H 08/22/19 20:58: Glucometer 166H 08/23/19 05:19: Glucometer 102 08/23/19 10:47: Glucometer 230H 08/23/19 15:46: Glucometer 135H 08/23/19 20:47: Glucometer 177H 08/24/19 06:26: Glucometer 155H 08/24/19 11:55: Glucometer 168H 08/24/19 16:24: Glucometer 149H 08/24/19 20:42: Glucometer 218H 08/25/19 05:28: Glucometer 173H Pending Labs Laboratory Tests 08/19/19 22:58: Glucometer 140 08/20/19 06:10: Glucometer 160 08/20/19 09:44: White Blood Count 10.0, Red Blood Count 4.83, Hemoglobin 12.6, Hematocrit 40, Mean Corpuscular Volume 83, Mean Corpuscular Hemoglobin 26, Mean Corpuscular Hemoglobin Concent 32, Red Cell Distribution Width 14.7, Platelet Count 374, Mean Platelet Volume 10.2, Neutrophils (%) (Auto) 69, Lymphocytes (%) (Auto) 13, Monocytes (%) (Auto) 13, Eosinophils (%) (Auto) 4, Basophils (%) (Auto) 1, Neutrophils # (Auto) 7.0, Lymphocytes # (Auto) 1.3, Monocytes # (Auto) 1.3, Eosinophils # (Auto) 0.4, Basophils # (Auto) 0.1, Sodium Level 134, Potassium Level 4.2, Chloride Level 89, Carbon Dioxide Level 33, Anion Gap 12, Blood Urea Nitrogen 19, Creatinine 0.96, Estimat Glomerular Filtration Rate 56, BUN/Creatinine Ratio 20, Glucose Level 192, Calcium Level 10.1, Corrected Calcium 10.2, Total Bilirubin 0.8, Aspartate Amino Transf (AST/SGOT) 26, Alanine Aminotransferase (ALT/SGPT) 23, Alkaline Phosphatase 83, B-Type Natriuretic Peptide 988.2, Total Protein 7.4, Albumin 3.9, Thyroid Stimulating Hormone (TSH) 3.00 08/20/19 12:46: Glucometer 313 08/20/19 17:11: Glucometer 164 08/20/19 20:54: Glucometer 246 08/21/19 05:52: Glucometer 122 08/21/19 10:32: Glucometer 214 08/21/19 15:30: Glucometer 215 08/21/19 20:31: Glucometer 163 08/22/19 04:45: White Blood Count 7.4, Red Blood Count 4.24, Hemoglobin 11.0, Hematocrit 35, Mean Corpuscular Volume 83, Mean Corpuscular Hemoglobin 26, Mean Corpuscular Hemoglobin Concent 31, Red Cell Distribution Width 14.8, Platelet Count 327, Mean Platelet Volume 10.0, Neutrophils (%) (Auto) 59, Lymphocytes (%) (Auto) 17, Monocytes (%) (Auto) 15, Eosinophils (%) (Auto) 7, Basophils (%) (Auto) 2, Neutrophils # (Auto) 4.4, Lymphocytes # (Auto) 1.3, Monocytes # (Auto) 1.1, Eosinophils # (Auto) 0.5, Basophils # (Auto) 0.1, Sodium Level 137, Potassium Level 3.5, Chloride Level 92, Carbon Dioxide Level 33, Anion Gap 12, Blood Urea Nitrogen 22, Creatinine 0.81, Estimat Glomerular Filtration Rate > 60, BUN/Creatinine Ratio 27, Glucose Level 79, Calcium Level 9.3, Corrected Calcium 9.9, Total Bilirubin 0.6, Aspartate Amino Transf (AST/SGOT) 21, Alanine Aminotransferase (ALT/SGPT) 22, Alkaline Phosphatase 63, Total Protein 6.0, Albumin 3.3 08/22/19 16:25: Glucometer 70 08/22/19 17:31: Glucometer 124 08/22/19 20:58: Glucometer 166 08/23/19 05:19: Glucometer 102 08/23/19 10:47: Glucometer 230 08/23/19 15:46: Glucometer 135 08/23/19 20:47: Glucometer 177 08/24/19 06:26: Glucometer 155 08/24/19 11:55: Glucometer 168 08/24/19 16:24: Glucometer 149 08/24/19 20:42: Glucometer 218 08/25/19 05:28: Glucometer 173 Discharge Home Medications: Active Scripts Active Bumetanide 1 Mg Tablet 2 Mg PO BID WITH MEALS Hydrocodone/Acetaminophen 5/325mg Tablet (Acetaminophen/Hydrocodone Bitart) 1 Tab Tab 1 Tab PO Q4H PRN Voltaren (Diclofenac Sodium) 100 Gm Gel..gram. 0 Gm TOP QID PRN Spironolactone 25 Mg Tablet 25 Mg PO DAILY Losartan Potassium 25 Mg Tablet 25 Mg PO DAILY Reported Diltiazem HCl 60 Mg Tablet 60 Mg PO QID Tradjenta (Linagliptin) 5 Mg Tablet 5 Mg PO DAILY Norman Barillas U-100 (Insulin Glargine,Hum.rec.anlog) 100 Unit/1 Ml Insuln.pen 20 Units SC 1200 Potassium Chloride 20 Meq Tab.er.prt 10 Meq PO DAILY TAKES 1/2 (20MEQ) TABLET Lovastatin 20 Mg Tablet 20 Mg PO 1200 Alprazolam 1 Mg Tablet 0.5 Mg PO QID PRN Ventolin Hfa (Albuterol Sulfate) 18 Gm Hfa.aer.ad 1-2 Puff INH Q4H PRN Amaryl (Glimepiride) 4 Mg Tablet 4 Mg PO HS Nitrofurantoin (Nitrofurantoin Macrocrystal) 100 Mg Capsule 100 Mg PO HS Guaifenesin Dm Syrup (Guaifenesin/Dextromethorphan) 5 Ml Syrup 7 Ml PO TID Magnesium Oxide 250 Mg Tablet 250 Mg PO 1200 Benadryl (Diphenhydramine HCl) 25 Mg Capsule 25 Mg PO TID Nitroglycerin 0.4 Mg Tab.subl 0.4 Mg SL UD PRN Aspir 81 (Aspirin) 81 Mg Tablet.dr 81 Mg PO Q96H Instructions to patient/family Please see electronic discharge instructions given to patient. Diagnosis/Problems Diagnosis/Problems (1) Myopathy Status: Acute (2) Congestive heart failure Status: Acute Qualifiers: Qualified Codes: I50.23 - Acute on chronic systolic (congestive) heart failure (3) CAD (coronary artery disease) Status: Chronic Qualifiers: Qualified Codes: I25.10 - Atherosclerotic heart disease of squaxin coronary artery without angina pectoris (4) Diabetes mellitus Status: Chronic Qualifiers: Qualified Codes: E11.69 - Type 2 diabetes mellitus with other specified complication (5) Morbid obesity Status: Chronic (6) Sleep apnea Status: Chronic Qualifiers: Qualified Codes: G47.30 - Sleep apnea, unspecified (7) Anemia Status: Chronic Qualifiers: Qualified Codes: D64.9 - Anemia, unspecified (8) Elevated brain natriuretic peptide (BNP) level Status: Chronic (9) Aortic stenosis Status: Chronic Qualifiers: Qualified Codes: I35.0 - Nonrheumatic aortic (valve) stenosis (10) Anxiety Status: Chronic (11) Depression Status: Chronic Qualifiers: Qualified Codes: F32.9 - Major depressive disorder, single episode, unspecified (12) Multiple sclerosis Status: Chronic Clinical Quality Measures DVT/VTE Risk/Contraindication: Risk Factor Score Per Nursin RFS Level Per Nursing on Admit: 4+=Very High MALLORY TUCKER DO Aug 25, 2019 06:17
[2019-08-25] MEDS: RT-ALBUTEROL SULF 2.5 MG/3 ML PRE-MIX VIAL INH PRN (07:41)
[2019-08-25] MEDS: ASPIRIN 81 MG CHEW (CHILDREN'S ASA) PO SCH (08:26)
[2019-08-25] MEDS: guaiFENesin/DM (ROBITUSSIN DM) 10 ML UDC PO SCH (08:26)
--- NOTE | 2019-08-25 08:26 | Therapy Team Discharge Summary ---
Therapy Discharge Summary Discharge Recommendations Date of Discharge Occupational Therapy Decreased Activ Tolerance, Impaired I ADL's, Impaired Self-Care Skills Speech-Language Pathology Patient has been seen for [address] Scores remain as initial ones. Patient is discharging to her assisted living apartment this date. She is discharging from as well. PT Intermediate Goals Pipeline Superintendent Goals PT Pipeline Superintendent Goals Time Frame: Sep 10, 2019 Transfers (B,C,W/C) (FIM): 6 Roll Left to Right (QC): 6 Sit to Lying (QC): 6 Lying-Sitting on Side/Bed(QC): 6 Sit to Stand (QC): 6 Chair/Hyr-kh-Mmfve Xfer(QC): 6 Car Transfer (QC): 6 Does the Patient Walk: Yes Gait (FIM): 6 Gait distance (FIM): 3=150 ft Distance: 150' Walk 10 feet (QC): 6 Walk 10ft-Uneven Surface(QC): 6 Walk 50ft with 2 Turns (QC): 6 Walk 150 ft (QC): 6 Gait Level of Assist: 6 Gait Assistive Device: FWW Stairs (FIM): 2 # of Steps: 4 1 Step (curb) (QC): 5 4 Steps (QC): 5 12 Steps (QC): 9 Stairs Level Of Assist: 5 Picking up an Object (QC): 5 OT Intermediate Goals Intermediate Goals Time Frame: Sep 03, 2019 Eating (FIM): 6 (met) Eating (QC): 6 (met) Oral Hygiene (QC): 6 Grooming(FIM): 6 Bathing(FIM): 5 Shower/Bathe Self (QC): 5 Upper Body Dressing(FIM): 6 Upper Body Dressing (QC): 6 Lower Body Dressing(FIM): 6 Lower Body Dressing (QC): 6 On/Off Footwear (QC): 6 Toileting(FIM): 6 Toileting Hygiene (QC): 6 Toilet/Commode Transfer(FIM): 6 Toilet/Commode Transfer (QC): 6 Shower Transfer(FIM): 6 Additional Goals: 1-Demonstrate ADL Tasks, 2-Verbalize Understanding, 3- ImproveStrength/Mary 1=Demonstrate adherence to instructed precautions during ADL tasks. 2=Patient will verbalize/demonstrate understanding of assistive devices/modifications for ADL. 3=Patient will improve strength/tolerance for activity to enable patient to perform ADL's. Speech Pipeline Superintendent Goals Pipeline Superintendent Goals Patient will improve cognitive-communication necessary for safety and daily living tasks with minimal assist. GEORGE HERNANDEZ Aug 25, 2019 08:26
[2019-08-25] MEDS: LOSARTAN 25 MG (COZAAR) TAB PO SCH (08:27)
[2019-08-25] MEDS: KCL 10 MEQ TAB (MICRO K) PO SCH (08:27)
[2019-08-25] MEDS: SPIRONOLACTONE 25 MG (ALDACTONE) TAB PO SCH (08:27)
[2019-08-25] MEDS: SENNA W/DOCUSATE (SENOKOT S) TABLET PO SCH (08:27)
--- NOTE | 2019-08-25 08:27 | Cardiology Progress Note ---
Subjective Date Seen by Provider: Aug 25, 2019 Time Seen by Provider: 08:26 Subjective/Events-last exam Patient is sitting up in bed, no new complaints. Denies any chest pain or d yspnea. Being d/c'd home today. Objective-Cardiology Exam Last Set of Vital Signs Vital Signs 08/25/19 08/25/19 05:58 07:41 Temp 36.0 Pulse 90 Resp 22 B/P (MAP) 121/70 (87) Pulse Ox 98 O2 Delivery Nasal Cannula O2 Flow Rate 2.00 Capillary Refill : I&O Intake and Output 08/25/19 00:00 Intake Total 1190 ml Balance 1190 ml Intake Oral 1190 ml # Voids 10 # Bowel Movements 2 General: Alert, Oriented X3, Cooperative HEENT: Atraumatic, PERRLA Neck: Supple, No JVD, No Thyromegaly Lungs: Normal Air Movement Heart: Regular Rate, Normal S1, Normal S2, No Murmurs, Other (systolic murmur at the left sternal border) Abdomen: Normal Bowel Sounds, Soft, No Tenderness, No Hepatosplenomegaly, No Masses Extremities: No Clubbing, No Cyanosis, No Edema, Normal Pulses, No Tenderness/Swelling Skin: No Rashes, No Breakdown, No Significant Lesion Neuro: Normal Gait, Normal Speech, Strength at 5/5 X4 Ext, Normal Tone, Se nsation Intact Psych/Mental Status: Mental Status NL, Mood NL A/P-Cardiology Admission Diagnosis Critical aortic valve stenosis Congestive heart failure, acute on chronic left ventricular systolic dys function, nonischemic cardiomyopathy Hypertension Hyperlipidemia Assessment/Plan Critical aortic valve stenosis status post balloon valvuloplasty, has been following with Dr. Chaidez, continue to monitor. Will need valve replacement surgery in the near future. Patient to follow up with Dr. Chaidez and Dr. Bang as outpatient. Congestive heart failure, severe cardiomyopathy nonischemic, acute on chronic left ventricular systolic dysfunction, secondary to valvular heart disease. Re ported ejection fraction 25 percent Hypotension secondary to medication. Continue on current medication with parameter to hold blood pressure medication if systolic below 90. Hyperlipidemia, monitor lipids Reported history of CVA in the past History of intolerance to TUSHAR inhibitor with cough. Diabetes mellitus Anxiety. Debility OK for discharge from cardiology standpoint. Follow up with Dr. Bansal's office in 2-4 weeks. Will need appt with Dr. Chaidez as well. Clinical Quality Measures DVT/VTE Risk/Contraindication: Risk Factor Score Per Nursin RFS Level Per Nursing on Admit: 4+=Very High ANJANA CAT Aug 25, 2019 08:27
--- NOTE | 2019-08-25 09:18 | NUR ---
Medicare IMM discussed with patient and signature obtained. Patient will be discharging home today with resumption of her in-home assistance and outpatient PT and OT through [facility]. Patient voices no concerns regarding discharge. Patient states her assistant sales manager, Tasha Hamilton, will be providing transportation home and will be here around 1030 to vegetable picker patient.
--- NOTE | 2019-08-25 10:16 | NUR ---
Orders and medical records faxed to [facility] outpatient therapy department per patient request.
--- NOTE | 2019-08-25 11:53 | Therapy Team Discharge Summary ---
Therapy Discharge Summary Discharge Recommendations Date of Discharge Physical Therapy Patient came to rehab with CHF myopathy. Upon evaluation patient performed bed mobility and transfers with SBA, car transfer SBA, ambulated 150' with a rolling walker with SBA (including 50' with at least 2 turns of 90 degrees and 10' over an uneven surface), and went up and down 2 steps using a rolling walker with CGA. Patient has been performing bed mobility and transfer training, balance and endurance training, functional strengthening, stair training, gait training, and education. Patient has made fair progress and has met all of her exterminator termite goals except for stairs. Now, patient performs bed mobility and transfers with mod I, car transfer mod I, ambulates 200' with a rolling walker with mod I (including 50' with at least 2 turns of 90 degrees and 10' over an uneven surface), and can go up and down 2 steps using a rolling walker with SBA. Patient is discharging from this facility today and will be discharged from PT at this time. Occupational Therapy Decreased Activ Tolerance, Impaired I ADL's, Impaired Self-Care Skills PT Skilled Nursing Goals Groutman Goals PT Skilled Nursing Goals Time Frame: Sep 10, 2019 Transfers (B,C,W/C) (FIM): 6 Roll Left to Right (QC): 6 Sit to Lying (QC): 6 Lying-Sitting on Side/Bed(QC): 6 Sit to Stand (QC): 6 Chair/Haf-jo-Vfivq Xfer(QC): 6 Car Transfer (QC): 6 Does the Patient Walk: Yes Gait (FIM): 6 Gait distance (FIM): 3=150 ft Distance: 150' Walk 10 feet (QC): 6 Walk 10ft-Uneven Surface(QC): 6 Walk 50ft with 2 Turns (QC): 6 Walk 150 ft (QC): 6 Gait Level of Assist: 6 Gait Assistive Device: FWW Stairs (FIM): 2 # of Steps: 4 1 Step (curb) (QC): 5 4 Steps (QC): 5 12 Steps (QC): 9 Stairs Level Of Assist: 5 Picking up an Object (QC): 5 OT Groutman Goals Groutman Goals Time Frame: Sep 03, 2019 Eating (FIM): 6 (met) Eating (QC): 6 (met) Oral Hygiene (QC): 6 Grooming(FIM): 6 Bathing(FIM): 5 Shower/Bathe Self (QC): 5 Upper Body Dressing(FIM): 6 Upper Body Dressing (QC): 6 Lower Body Dressing(FIM): 6 Lower Body Dressing (QC): 6 On/Off Footwear (QC): 6 Toileting(FIM): 6 Toileting Hygiene (QC): 6 Toilet/Commode Transfer(FIM): 6 Toilet/Commode Transfer (QC): 6 Shower Transfer(FIM): 6 Additional Goals: 1-Demonstrate ADL Tasks, 2-Verbalize Understanding, 3- ImproveStrength/Mary 1=Demonstrate adherence to instructed precautions during ADL tasks. 2=Patient will verbalize/demonstrate understanding of assistive devices/modifications for ADL. 3=Patient will improve strength/tolerance for activity to enable patient to perform ADL's. Speech Skilled Nursing Goals Groutman Goals Patient will improve cognitive-communication necessary for safety and daily living tasks with minimal assist. JHON DELGADO PT Aug 25, 2019 11:53
--- NOTE | 2019-08-30 10:52 | NUR ---
Received a phone call from patient requesting Flexeril and Potassium Chloride be ordered as patient is having leg spasms. Discussed with Dr. Wilde. Dr. Wilde gave orders for Flexeril 10mg PO Q8H PRN muscle spasms #30 and Potassium Chloride 10mEq PO daily #30 be called to patient's pharmacy. Prescriptions called to [facility]. Patient notified and verbalized understanding.
--- NOTE | 2019-08-30 10:55 | Therapy Team Discharge Summary ---
Therapy Discharge Summary Discharge Recommendations Date of Discharge Aug 25, 2019 at 11:59 Occupational Therapy Pt admitted to ARU with CHF myopathy. On admission pt required max assist for LE dressing, min assist with bathing and shower transfer, and SBA for UE dressing, and toilet transfer. Skilled OT intervention focused on ADL training, transfers, strengthening, and safety. Pt progressed with therapy and by discharge is completing eating and toilet transfer with modified independence and SBA with other basic ADLs and shower transfer. Pt met goals for eating, bathing, and toilet transfer, but did not meet other OT LTG. Pt discharged home. D/c ARU OT at this time. Decreased Activ Tolerance, Impaired I ADL's, Impaired Self-Care Skills PT Radio Station Engineer Goals Radio Station Engineer Goals PT Group Home Goals Time Frame: Sep 10, 2019 Transfers (B,C,W/C) (FIM): 6 Roll Left to Right (QC): 6 Sit to Lying (QC): 6 Lying-Sitting on Side/Bed(QC): 6 Sit to Stand (QC): 6 Chair/Pdl-fr-Rgieb Xfer(QC): 6 Car Transfer (QC): 6 Does the Patient Walk: Yes Gait (FIM): 6 Gait distance (FIM): 3=150 ft Distance: 150' Walk 10 feet (QC): 6 Walk 10ft-Uneven Surface(QC): 6 Walk 50ft with 2 Turns (QC): 6 Walk 150 ft (QC): 6 Gait Level of Assist: 6 Gait Assistive Device: FWW Stairs (FIM): 2 # of Steps: 4 1 Step (curb) (QC): 5 4 Steps (QC): 5 12 Steps (QC): 9 Stairs Level Of Assist: 5 Picking up an Object (QC): 5 OT Radio Station Engineer Goals Group Home Goals Time Frame: Sep 03, 2019 Eating (FIM): 6 (met) Eating (QC): 6 (met) Oral Hygiene (QC): 6 Grooming(FIM): 6 Bathing(FIM): 5 Shower/Bathe Self (QC): 5 Upper Body Dressing(FIM): 6 Upper Body Dressing (QC): 6 Lower Body Dressing(FIM): 6 Lower Body Dressing (QC): 6 On/Off Footwear (QC): 6 Toileting(FIM): 6 Toileting Hygiene (QC): 6 Toilet/Commode Transfer(FIM): 6 Toilet/Commode Transfer (QC): 6 Shower Transfer(FIM): 6 Additional Goals: 1-Demonstrate ADL Tasks, 2-Verbalize Understanding, 3- ImproveStrength/Mary 1=Demonstrate adherence to instructed precautions during ADL tasks. 2=Patient will verbalize/demonstrate understanding of assistive devices/modifications for ADL. 3=Patient will improve strength/tolerance for activity to enable patient to perform ADL's. Speech Radio Station Engineer Goals Radio Station Engineer Goals Patient will improve cognitive-communication necessary for safety and daily living tasks with minimal assist. TRISTEN TREJO OT Aug 30, 2019 10:55
== END 2019-08-25 11:59 | disposition home or self-care (01) | DRG 91 ==
PROVIDERS: ADMIT Internal Medicine; ATTEND Internal Medicine
DX: G72.89 Other specified myopathies (principal); I11.0 Hypertensive heart disease with heart failure; I50.23 Acute on chronic systolic (congestive) heart failure; I35.0 Nonrheumatic aortic (valve) stenosis; I42.9 Cardiomyopathy, unspecified; G35 Multiple sclerosis; E66.01 Morbid (severe) obesity due to excess calories; Z68.43 Body mass index [BMI] 50.0-59.9, adult; E11.9 Type 2 diabetes mellitus without complications; E87.6 Hypokalemia; F41.9 Anxiety disorder, unspecified; I25.10 Atherosclerotic heart disease of native coronary artery without angina pectoris; N19 Unspecified kidney failure; K21.9 Gastro-esophageal reflux disease without esophagitis; M19.91 Primary osteoarthritis, unspecified site; M06.9 Rheumatoid arthritis, unspecified; M10.9 Gout, unspecified; K58.1 Irritable bowel syndrome with constipation; G47.30 Sleep apnea, unspecified; F32.9 Major depressive disorder, single episode, unspecified; D64.9 Anemia, unspecified; E78.5 Hyperlipidemia, unspecified; Z87.891 Personal history of nicotine dependence
CPT/HCPCS: 36415; 80053; 82962; 83880; 84443; 85025; 93005; 94640; 94760

== ENCOUNTER → 2019-10-24 | Outpatient (CLI) | payer MEDICARE, MEDICAID ==
[~2019-10-24] MED LIST: ACHD5005 PO; ALBU18HF2 INH; ALPR0.5T PO; ALPR1TAB7 PO; ASPI-586 PO; BUME1TAB8 PO; BUME2TAB7 PO; CYCL10TA9 PO; DICL100G18 TOP; DILT60TA PO; DIPH25CA79 PO; FURO40TA4 PO; GLIM4TAB PO; GLIM4TAB56 PO; GUAI1CAP52 PO; GUAI5SYR PO; INSU100I34 SC; INSU100V39 SQ; INSU100V5 SQ; LINA5TAB PO; LOSA25TA2 PO; LOSA25TA41 PO; LOVA20TA2 PO; LOVA40TA2 PO; MAGN200T8 PO; MAGN250T35 PO; NITR-68 PO; NITR0.4T42 SL; NITR100C PO; POTA10TA PO; POTA20TA15 PO; RT-ALBUINH INH; SPIR25TA5 PO
== END ==
LOC: CARD 08:17
PROVIDERS: ATTEND Internal Medicine Cardiovascular Disease
DX: I35.0 Nonrheumatic aortic (valve) stenosis (principal); I50.21 Acute systolic (congestive) heart failure; I51.7 Cardiomegaly; I34.0 Nonrheumatic mitral (valve) insufficiency; J90 Pleural effusion, not elsewhere classified
CPT/HCPCS: 93306